=== PATIENT | male | born 1990 | race Caucasian/White ===

== ENCOUNTER → 2018-03-26 | Outpatient (REF) ==
--- NOTE | 2018-03-27 04:11 | REP ---
Clinical: Left knee pain Technique: AP, lateral, bilateral oblique and sunrise views left knee . Findings: The osseous structures and joint spaces are intact and normal. There is no evidence for acute fracture or dislocation. No joint effusion is appreciated. Surrounding soft tissues are unremarkable. No subcutaneous emphysema or radiodense foreign body. Impression: Normal age-appropriate examination. No acute fracture or dislocation. Electronically Signed by Miguel Angel Jesus MD 03/27/2018 04:03 A
--- NOTE | 2018-03-27 04:16 | REP ---
Clinical: Pain and disability. Technique: AP, lateral, coned-down views of the lumbosacral spine. Findings: Alignment and lordosis maintained. No acute fracture / compression injury or subluxation is appreciated. There appears to be lumbarization of the S1 vertebral body spina bifida occulta and mild associated hypertrophic facet changes. Impression: Presumed lumbarization of the S1 vertebral body with associated changes. Correlation with physical examination is recommended and if necessary MRI of the lumbosacral spine may be considered for further investigation. Electronically Signed by Miguel Angel Jesus MD 03/27/2018 04:08 A
== END ==
LOC: M SMT 11:40
PROVIDERS: ATTEND Internal Medicine
DX: Z00.00 Encounter for general adult medical examination without abnormal findings (principal)

== ENCOUNTER → 2018-08-28 | Outpatient (CLI) | payer OTHER, MEDICAID ==
[~2018-08-28] MED LIST: CYCL10TA PO; DICL75TA PO; DRIS50003 PO; FLOM0.4C39 PO; IBUP-1022 PO; METO1TAB7 PO; NORC1TAB7 PO; ROSU40TA3 PO; TRAM50TA2 PO
--- NOTE | 2018-08-28 15:06 | REP ---
CERVICAL SPINE SERIES: Nine views of the cervical spine are performed. There is no evidence of acute fracture or dislocation. Vertebral bodies are normal in height and are well aligned with no prevertebral soft tissue swelling. Disc spaces are well preserved. I do not see radiographic evidence of significant neural foraminal narrowing. There are small cervical ribs at the C7 level. The cervical spine is slightly curved toward the left. This could indicate spasm. Electronically Signed by Son Roldan MD 08/29/2018 12:31 P
== END ==
LOC: M RAD 13:07
PROVIDERS: ATTEND Physician Assistant
DX: M54.12 Radiculopathy, cervical region (principal)

== ENCOUNTER 2018-09-04 08:53 | Emergency (ER) | payer OTHER, MEDICAID ==
[~2018-09-04] VITALS: Ht 170.2 cm; Wt 90.9 kg
[2018-09-04] MEDS ORDERED: ROSU40TA3 PO (09:02)
[2018-09-04] MEDS ORDERED: METO1TAB7 PO (09:02)
[2018-09-04] MEDS ORDERED: DRIS50003 PO (09:02)
[2018-09-04] MEDS ORDERED: DICL75TA PO (09:02)
[2018-09-04] MEDS ORDERED: CYCL10TA PO (09:02)
[2018-09-04] MEDS ORDERED: TRAM50TA2 PO (09:02)
[2018-09-04] MEDS ORDERED: NS 1,000 ML IV ONE (09:30)
[2018-09-04] MEDS ORDERED: KETOROLAC 30 MG/ML VIAL (J1885) IV ONE (09:30)
[2018-09-04 09:52] LABS: BASO % 0.2 % (0.0-1.0); EOS % 0.2 % (0.0-3.0); HEMATOCRIT 46.3 % (42.0-52.0); HEMOGLOBIN 16.1 g/dl (13.5-17.5); LYMPH # 3.3 10^3/uL (1.5-6.5); LYMPH % 25.7 % (24.0-44.0); MEAN CORPUSCULAR HEMOGLOBIN 32.2 pg (27.0-33.0); MEAN CORPUSCULAR HGB CONC 34.8 g/dl (32.0-36.5); MEAN CORPUSCULAR VOLUME 92.6 fl (80.0-96.0); MONO # 0.6 10^3/uL (0.0-0.8); MONO % 4.8 % (0.0-5.0); NEUTROPHILS # 8.8 10^3/uL (1.8-7.7); NEUTROPHILS % 68.8 % (36.0-66.0); PLATELET COUNT, AUTOMATED 271 10^3/uL (150-450); WHITE BLOOD COUNT 12.8 10^3/uL (4.0-10.0)
[2018-09-04 10:12] LABS: APPEARANCE, URINE CLOUDY (CLEAR); BACTERIA, URINE AUTO NEGATIVE (NEGATIVE); BILIRUBIN, URINE AUTO NEGATIVE (NEGATIVE); BLOOD, URINE BLOOD 3+ (NEGATIVE); COLOR, URINE AMBER (YELLOW); GLUCOSE, URINE (UA) AUTO NEGATIVE (NEGATIVE); KETONE, URINE AUTO NEGATIVE (NEGATIVE); LEUKOCYTE ESTERASE, URINE AUTO NEGATIVE (NEGATIVE); MUCUS, URINE LARGE (NEGATIVE); NITRITE, URINE AUTO NEGATIVE (NEGATIVE); PROTEIN, URINE AUTO 2+ mg/dL (NEGATIVE); RBC, URINE AUTO TNTC /HPF (0-3); SPECIFIC GRAVITY URINE AUTO 1.026 (1.002-1.035); SQUAMOUS EPITHELIAL CELL UR AU 0 /HPF (0-6); UROBILINOGEN, URINE AUTO 0.2 mg/dL (0.0-2.0); WBC, URINE AUTO 2 /HPF (0-3)
[2018-09-04 10:14] LABS: ALBUMIN 4.1 GM/DL (3.2-5.2); ALT/SGPT 71 U/L (12-78); BILIRUBIN,DIRECT 0.4 MG/DL (0.0-0.2); BILIRUBIN,TOTAL 2.1 MG/DL (0.2-1.0); BLOOD UREA NITROGEN 16 MG/DL (7-18); CALCIUM LEVEL 9.1 MG/DL (8.5-10.1); CARBON DIOXIDE LEVEL 32 MEQ/L (21-32); CHLORIDE LEVEL 106 MEQ/L (98-107); CREATININE FOR GFR 0.83 MG/DL (0.70-1.30); GLOMERULAR FILTRATION RATE > 60.0 (>60); GLUCOSE, FASTING 93 MG/DL (70-100); POTASSIUM SERUM 4.4 MEQ/L (3.5-5.1); SODIUM LEVEL 144 MEQ/L (136-145); TOTAL PROTEIN 7.2 GM/DL (6.4-8.2)
--- NOTE | 2018-09-04 10:33 | REP ---
CT abdomen and pelvis without IV or oral contrast: History: Right-sided flank pain. Renal colic. Comparison study: December 16, 2009. CT findings: Preliminary digital tile helper radiograph is unremarkable. A normal bowel gas pattern is seen. The lung bases are clear on axial CT images. The liver and the spleen are normal in size and homogeneous in texture. No adrenal lesion is seen on either side. No abnormality is noted in the pancreas or in the gallbladder. There is an intrarenal calculus at mid pole level in the right kidney 4 mm in greatest diameter. There is mild right-sided hydronephrosis and mild right hydroureter. This is due to a distal ureteral calculus just above the ureterovesical junction. This calculus measures 3 mm in greatest diameter. No bladder calculus is seen. No intrarenal or ureteral calculus is noted on the left. Seminal vesicles and prostate are unremarkable. The appendix is not identified but there is no CT evidence to suggest inflammation in the region of the cecum. Small and large intestinal bowel loops are unremarkable. Impression: 3 mm obstructing right distal ureteral calculus just above the ureterovesical junction. There is an intrarenal calculus in the right kidney as well with mild right-sided hydronephrosis. Electronically Signed by Fredis Pereira MD 09/04/2018 12:32 P
[2018-09-04] MEDS ORDERED: NORCO, ANEXSIA 5/325MG TABLET (HYDROcodone/ACETAMINOPHEN) PO ONE (12:00)
[2018-09-04] MEDS ORDERED: IBUP-1022 PO (12:41)
[2018-09-04] MEDS ORDERED: NORC1TAB7 PO (12:41)
[2018-09-04] MEDS ORDERED: FLOM0.4C39 PO (12:41)
[2018-09-04 13:07] VITALS: BP 135/86
== END 2018-09-04 13:13 | disposition home or self-care (01) ==
LOC: M ED 08:53
DX: N21.1 Calculus in urethra (principal); N13.2 Hydronephrosis with renal and ureteral calculous obstruction; I10 Essential (primary) hypertension; Z79.899 Other long term (current) drug therapy; Z91.018 Allergy to other foods
CPT/HCPCS: 36415; 74176; 80048; 80076; 81001; 85025; 96361; 96374; 99284; J1885

== ENCOUNTER 2018-12-12 20:17 | Emergency (ER) | payer MEDICAID, OTHER ==
[~2018-12-12] VITALS: Ht 170.2 cm; Wt 90.9 kg
[~2018-12-12 20:17] MED LIST changes: -ROSU40TA3 PO; +ROSU40TA4 PO
[2018-12-12 23:30] VITALS: BP 164/96
[2018-12-12] MEDS ORDERED: NAPROXEN 250 MG TAB PO ONE (23:45)
[2018-12-12] MEDS ORDERED: METHOCARBAMOL 750 MG TAB PO ONE (23:45)
[2018-12-12] MEDS ORDERED: NAPR-837 PO (23:48)
[2018-12-12] MEDS ORDERED: ROBA750T4 PO (23:48)
--- NOTE | 2018-12-13 07:15 | ECGEPIP ---
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
== END 2018-12-13 00:30 | disposition home or self-care (01) ==
LOC: M ED 20:17
DX: S46.812A Strain of other muscles, fascia and tendons at shoulder and upper arm level, left arm, initial encounter (principal); X58.XXXA Exposure to other specified factors, initial encounter; Y92.89 Other specified places as the place of occurrence of the external cause; I10 Essential (primary) hypertension; E78.9 Disorder of lipoprotein metabolism, unspecified; Z79.899 Other long term (current) drug therapy; Z91.018 Allergy to other foods

== ENCOUNTER → 2018-12-23 | Outpatient (CLI) | payer OTHER ==
[~2018-12-23] MED LIST changes: +NAPR-837 PO; +ROBA750T4 PO
--- NOTE | 2018-12-24 03:27 | REP ---
Clinical: Arthralgia . Technique: Internal rotation, external rotation, and Y view left shoulder . Findings: No acute fracture or dislocation. The acromioclavicular and glenohumeral joints are intact. No periarticular calcifications or degenerative changes are appreciated. Sub acromial space is normal. Surrounding soft tissues are unremarkable. Impression: Normal age-appropriate left shoulder radiographs. Electronically Signed by Miguel Angel Jesus MD 12/24/2018 03:19 A
--- NOTE | 2018-12-24 03:37 | REP ---
Clinical: Cervical. Technique: AP, lateral, bilateral oblique, flexion/extension and open-mouth views of the cervical spine. Comparison: 08/28/2018. Findings: Alignment and lordosis maintained. No acute fracture / compression injury or subluxation. No significant degenerative changes are appreciated. Oblique views demonstrate patent neural foramen. Open mouth view demonstrates normal C1-C2 articulation and odontoid process and Impression: Normal, age-appropriate cervical spine radiographs. Electronically Signed by Miguel Angel Jesus MD 12/24/2018 03:28 A
== END ==
LOC: M SMT 13:01
PROVIDERS: ATTEND Physician Assistant Medical
DX: M54.2 Cervicalgia (principal); M25.512 Pain in left shoulder

== ENCOUNTER → 2019-02-13 | Outpatient (CLI) | payer OTHER ==
--- NOTE | 2019-02-13 20:03 | REP ---
MRI cervical spine: 02/13/2019. Indication: Cervical radiculopathy. Comparison: None. Technique: Multiplanar short and long TR sequences of the cervical spine were performed. Findings: Diagnostic quality is degraded by patient motion. There is straightening of the cervical lordosis. No worrisome marrow or cord signal is detected. The craniocervical junction is unremarkable. The vertebral flow voids are present and unremarkable with the exception of possible duplication on the left at C5. C2/C3 and C3/C4: Unremarkable. C4/C5: Diffuse disc bulge and left-sided uncovertebral proliferation are present with moderate left neural foraminal narrowing. C5/C6: Predominantly left-sided uncovertebral proliferation is present with moderate left neural foraminal narrowing. C6/C7: There is a left lateral disc protrusion and bilateral uncovertebral proliferation with severe left neural foraminal narrowing. There is no significant compression of the cord/spinal canal narrowing. C7/T1: Unremarkable. Impression: Degenerative sequelae as described most pronounced on the left at C6/C7. Please correlate with radicular level. Electronically Signed by Gamaliel De Leon DO 02/13/2019 07:53 P
== END ==
LOC: M RAD 16:49
PROVIDERS: ATTEND Physician Assistant Medical
DX: M50.221 Other cervical disc displacement at C4-C5 level (principal); M50.223 Other cervical disc displacement at C6-C7 level; M50.321 Other cervical disc degeneration at C4-C5 level; M50.322 Other cervical disc degeneration at C5-C6 level; M50.323 Other cervical disc degeneration at C6-C7 level

== ENCOUNTER 2019-03-19 08:10 | Emergency (ER) | payer OTHER ==
[~2019-03-19] VITALS: Ht 170.2 cm; Wt 94.6 kg
[2019-03-19] MEDS ORDERED: ALL10TAB29 PO (08:16)
[2019-03-19 09:40] LABS: BASO # 0.1 10^3/uL (0.0-0.2); BASO % 0.8 % (0.0-1.0); EOS # 0.1 10^3/uL (0.0-0.5); EOS % 0.9 % (0.0-3.0); HEMOGLOBIN 16.4 g/dl (13.5-17.5); LYMPH # 2.5 10^3/uL (1.5-5.0); MEAN CORPUSCULAR HEMOGLOBIN 31.3 pg (27.0-33.0); MEAN CORPUSCULAR HGB CONC 33.5 g/dl (32.0-36.5); MEAN CORPUSCULAR VOLUME 93.5 fl (80.0-96.0); MONO # 0.6 10^3/uL (0.0-0.8); MONO % 7.3 % (0.0-5.0); NEUTROPHILS # 4.4 10^3/uL (1.5-8.5); NEUTROPHILS % 57.7 % (36.0-66.0); PLATELET COUNT, AUTOMATED 269 10^3/uL (150-450); RED BLOOD COUNT 5.24 10^6/uL (4.30-6.10); WHITE BLOOD COUNT 7.6 10^3/uL (4.0-10.0)
[2019-03-19 09:42] LABS: APPEARANCE, URINE CLEAR (CLEAR); BACTERIA, URINE AUTO NEGATIVE (NEGATIVE); BILIRUBIN, URINE AUTO NEGATIVE (NEGATIVE); BLOOD, URINE BLOOD 3+ (NEGATIVE); COLOR, URINE AMBER (YELLOW); GLUCOSE, URINE (UA) AUTO NEGATIVE (NEGATIVE); KETONE, URINE AUTO NEGATIVE (NEGATIVE); LEUKOCYTE ESTERASE, URINE AUTO NEGATIVE (NEGATIVE); MUCUS, URINE MODERATE (NEGATIVE); NITRITE, URINE AUTO NEGATIVE (NEGATIVE); PROTEIN, URINE AUTO 1+ mg/dL (NEGATIVE); RBC, URINE AUTO 12 /HPF (0-3); SPECIFIC GRAVITY URINE AUTO 1.025 (1.002-1.035); SQUAMOUS EPITHELIAL CELL UR AU 0 /HPF (0-6); UROBILINOGEN, URINE AUTO 0.2 mg/dL (0.0-2.0); WBC, URINE AUTO 2 /HPF (0-3)
--- NOTE | 2019-03-19 09:45 | REP ---
Two-view chest: 03/19/2019. Indication: Chest pain. Comparison: None. Findings: There is no air space consolidation, pleural effusion or pneumothorax. The cardiac silhouette is at the upper limits of normal in size. Impression: No acute cardiopulmonary process. Electronically Signed by Gamaliel De Leon DO 03/19/2019 09:36 A
[2019-03-19 10:10] LABS: BLOOD UREA NITROGEN 12 MG/DL (7-18); CALCIUM LEVEL 9.2 MG/DL (8.5-10.1); CARBON DIOXIDE LEVEL 30 MEQ/L (21-32); CHLORIDE LEVEL 108 MEQ/L (98-107); CK-MB VALUE MASS < 1.0 NG/ML (<3.6); CPK CREATINE PHOSPHOKINASE 150 U/L (39-308); CREATININE FOR GFR 0.84 MG/DL (0.70-1.30); GLOMERULAR FILTRATION RATE > 60.0 (>60); GLUCOSE, FASTING 95 MG/DL (70-100); MAGNESIUM LEVEL 2.1 MG/DL (1.8-2.4); MB/CK RELATIVE INDEX 0.67 (< OR =4); NT-PRO BNP 10 PG/ML (<125); POTASSIUM SERUM 4.2 MEQ/L (3.5-5.1); SODIUM LEVEL 143 MEQ/L (136-145); TROPONIN I < 0.02 NG/ML (< 0.10)
[2019-03-19 12:06] VITALS: BP 138/88
--- NOTE | 2019-03-20 17:45 | ECGEPIP ---
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
== END 2019-03-19 12:07 | disposition home or self-care (01) ==
LOC: M ED 08:10
DX: R31.9 Hematuria, unspecified (principal); R06.02 Shortness of breath; I10 Essential (primary) hypertension; E78.5 Hyperlipidemia, unspecified; R94.31 Abnormal electrocardiogram [ECG] [EKG]; Z79.899 Other long term (current) drug therapy; Z91.018 Allergy to other foods

== ENCOUNTER → 2019-03-21 | Outpatient (REF) | payer OTHER ==
[~2019-03-21] MED LIST changes: +ALL10TAB29 PO
[2019-03-21 13:33] LABS: AMORPHOUS SEDIMENT SMALL (NEGATIVE); APPEARANCE, URINE TURBID (CLEAR); BACTERIA, URINE AUTO NEGATIVE (NEGATIVE); BILIRUBIN, URINE AUTO NEGATIVE (NEGATIVE); BLOOD, URINE BLOOD 3+ (NEGATIVE); COLOR, URINE YELLOW (YELLOW); GLUCOSE, URINE (UA) AUTO NEGATIVE (NEGATIVE); KETONE, URINE AUTO NEGATIVE (NEGATIVE); LEUKOCYTE ESTERASE, URINE AUTO NEGATIVE (NEGATIVE); MUCUS, URINE LARGE (NEGATIVE); NITRITE, URINE AUTO NEGATIVE (NEGATIVE); PROTEIN, URINE AUTO 1+ mg/dL (NEGATIVE); RBC, URINE AUTO 3 /HPF (0-3); SPECIFIC GRAVITY URINE AUTO 1.025 (1.002-1.035); SQUAMOUS EPITHELIAL CELL UR AU 0 /HPF (0-6); UROBILINOGEN, URINE AUTO 0.2 mg/dL (0.0-2.0); WBC, URINE AUTO 0 /HPF (0-3)
== END ==
LOC: M SMT 13:10
PROVIDERS: ATTEND Nurse Practitioner Family
DX: R31.29 Other microscopic hematuria (principal)

== ENCOUNTER → 2019-03-31 | Outpatient (CLI) | payer OTHER ==
[~2019-03-31] MED LIST changes: +ISOVUE-370 76% 100ML VIAL (Q9967) As Ordered ONE
--- NOTE | 2019-03-31 09:04 | REP ---
Clinical: Microscopic hematuria. Technique: Axial precontrast, contrast enhanced, and delayed images of the abdomen and pelvis using 100 ml Isovue 370 intravenous contrast material along with coronal and sagittal re-formations. 3-D volume rendered CT urogram obtained. Findings: There is a 2 x 3 mm nonobstructing calcification in the right kidney along with 11 mm right upper pole and mid pole simple cysts. Left kidney appears normal. The collecting system is unremarkable and without evidence for hydronephrosis. No perinephric stranding. No further obvious urinary tract pathology appreciated. Liver, spleen, pancreas, gallbladder, and bilateral adrenal glands are normal. The enteric system is without obstruction or acute inflammatory process. Pelvis demonstrates normal bladder and age appropriate prostate/seminal vesicles. No ascites. No adenopathy. No free air. Abdominal aorta and vasculature appear normal. Surrounding musculoskeletal structures are intact. Lung bases are clear. Impression: 1. Two benign appearing 11 mm right renal cysts and 3 mm nonobstructing right renal calculus. Electronically Signed by Miguel Angel Jesus MD 03/31/2019 08:55 A
== END ==
LOC: M RAD 07:39
PROVIDERS: ATTEND Nurse Practitioner Family
DX: N28.1 Cyst of kidney, acquired (principal); R31.29 Other microscopic hematuria
CPT/HCPCS: 74178; Q9967

== ENCOUNTER → 2019-04-23 | Outpatient (CLI) | payer OTHER ==
[~2019-04-23] MED LIST changes: -ISOVUE-370 76% 100ML VIAL (Q9967) As Ordered ONE
--- NOTE | 2019-05-06 02:48 | ECWPNPC ---
PATIENT NAME: CHRISTIAN TORRES : 1990 GENDER: MALE VISIT DATE: 04/23/2019 DISCHARGE DATE: 04/23/19 1723 VISIT LOCKED DATE TIME: PHYSICIAN: ISAIAH CAST MD RESOURCE: ISAIAH CAST MD REASON FOR APPOINTMENT 1. CERVICAL HISTORY OF PRESENT ILLNESS NEW PATIENT CONSULT: WHEN DID YOUR PAIN FIRST START? . BRIEFLY DESCRIBE HOW YOUR PAIN STARTED? . HOW DOES YOUR PAIN CHANGE WITH TIME? . DOES YOUR PAIN AWAKEN YOU FROM SLEEP? . HOW MANY HOURS OF SLEEP DO YOU NORMALLY GET? . ANY DIAGNOSTIC TESTING? . FACILITY WHERE TESTS WERE DONE? ____. PAIN TREATMENT TREATMENT YES CANCER HAVE YOU EVER HAD ANY TYPE OF CANCER?NO NO. 28-YEAR-OLD MALE PATIENT WITH A HISTORY OF CHRONIC NECK AND LEFT ARM PAIN. THE PATIENT DESCRIBES THE PAIN ACHING, SHARP, STABBING, DAILY AND CONTINUOUS WITH A PAIN SCORE OF 4-9/10 DEPENDING ON PHYSICAL ACTIVITY. THE PATIENT STATES HIS PAIN INCREASES WITH ACTIVITIES AND IS INTERFERING WITH HIS ABILITY TO DO ACTIVITIES SUCH CLEANING HIS HOME, GROCERY SHOPPING AND HOLDING OBJECTS. THE PATIENT STATES HE HAS BEEN SUFFERING WITH NECK AND ARM PAIN FOR 6 MONTHS AND HAS BEEN SUFFERING WITH BACK AND LEG PAIN FOR TEN YEARS THAT HAS INCREASED WITHIN THE PAST FEW YEARS. PATIENT DENIES UNEXPLAINABLE WEIGHT LOSS, FEVER, CHILLS, NEW CHANGES ON HIS URINARY OR BOWEL CONTROL. PAIN SCREENING: PATIENT HAS A COMPLAINT OF ACUTE OR CHRONIC PAIN :YES FALL RISK SCREENING: SCREENING : NO FALLS IN THE PAST YEAR. ROSS INVENTORY: QUESTIONNAIRE ASSESSEDTBD SCORE VALUE CALCULATED TBD CURRENT MEDICATIONS TAKING ROSUVASTATIN CALCIUM 40 MG TABLET 1 TABLET ORALLY ONCE A DAY TAKING MULTI FOR HIM - TABLET DIRECTED ORALLY TAKING CETIRIZINE HCL 10 MG TABLET 1 TABLET ORALLY BEFORE BEDTIME TAKING TRAMADOL HCL 50 MG TABLET 1 TABLET NEEDED, WITH 1 ACETAMINOPHEN TABLET ORALLY EVERY 6 HOURS NEEDED DISCONTINUED NAPROXEN 500 MG TABLET 1 TABLET WITH FOOD OR MILK NEEDED ORALLY EVERY 12 HRS DISCONTINUED DICLOFENAC SODIUM 1 % GEL 4 DROPS EACH SIDE OF EACH KNEE TRANSDERMAL EVERY 4 HOURS NEEDED DISCONTINUED GABAPENTIN 100 MG CAPSULE 2 CAPSULE ORALLY BID DISCONTINUED METHOCARBAMOL 750 MG TABLET 1 TABLET ORALLY BID DISCONTINUED ERGOCALCIFEROL 67993 UNIT CAPSULE 1 CAPSULE ORALLY DISCONTINUED PAMELOR 25 MG CAPSULE 1 CAPSULE ORALLY THREE TIMES DAILY NEEDED DISCONTINUED BACTRIM DS 800-160 MG TABLET 1 TABLET 1 HOUR PRIOR TO YOUR CYSTOSCOPY ORALLY ONCE DISCONTINUED GABAPENTIN 300 MG CAPSULE 1 CAPSULE ORALLY ONCE A DAY DISCONTINUED PREDNISONE 5 MG TABLET 1 TABLET ORALLY ONCE A DAY UNKNOWN METOPROLOL SUCCINATE 50 MG TABLET EXTENDED RELEASE DIRECTED ORALLY ONCE A DAY MEDICATION LIST REVIEWED AND RECONCILED WITH THE PATIENT PAST MEDICAL HISTORY HTN HYPERLIPIDEMIA PTSD/DEPRESSION/ANXIETY GILBERT'S SYNDROME 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 SOCIAL HISTORY GENERAL: TOBACCO USE ARE YOU A:NONSMOKER OTHERS AT HOME: IN-LAW(S), OTHER NON-RELATIVE. EDUCATION LEVEL OF EDUCATION:[employer] DIET: REGULAR. LANGUAGE LANGUAGES SPOKEN:BULGARIAN RECREATIONAL DRUG USE DRUG USE?NO EXERCISE: NO REGULAR EXERCISE. LEARNING BARRIERS / SPECIAL NEEDS BARRIERS TO LEARNING?NO PAIN CLINIC PFS, CLERGY, PUBLIC HEALTH REFERRALS PFS REFERRAL NEEDED?NO CLERGY REFERRAL NEEDED?NO PUBLIC HEALTH REFERRAL NEEDED?NO WAS THE PROVIDER NOTIFIED OF ANY PERTINENT INFO?NO HAS THE PATIENT BEEN EDUCATED REGARDING HIS/HER PLAN OF CARE?YES HAS THE PATIENT BEEN EDUCATED REGARDING PAIN, THE RISK FOR PAIN, THE IMPORTANCE OF EFFECTIVE PAIN MANAGEMENT, AND THE PAIN ASSESSMENT PROCESS?YES LATEX QUESTIONNAIRE LATEX ALLERGY : HAVE YOU EVER DEVELOPED ANY TYPE OF REACTION AFTER HANDLING LATEX PRODUCTS SUCH RUBBER GLOVES, CONDOMS, DIAPHRAGMS, BALLOONS, SOCKS, OR UNDERWEAR?NO LATEX ALLERGY : HAVE YOU EVER DEVELOPED ANY TYPE OF REACTION DURING OR AFTER DENTAL APPOINTMENT, VAGINAL/RECTAL EXAMINATION, SURGICAL PROCEDURE, OR ANY OTHER EXPOSURE?NO LATEX RISK : HAVE YOU EVER HAD ANY DIFFICULTY BREATHING OR HIVES AFTER EATING OR HANDLING ANY FRUITS, OR VEGETABLES; SUCH KIWI, BANANAS, STONE FRUITS, OR CHESTNUTSNO LATEX RISK : DO YOU HAVE A PREVIOUS PERSONAL HISTORY OF MORE THAN NINE SURGERIES, SPINA BIFIDA, OR REPEATED CATHERIZATIONS? NO LATEX RISK : ARE YOU FREQUENTLY EXPOSED TO LATEX PRODUCTS IN YOUR OCCUPATION?NO DATE ASKED : 04/23/2019 CAFFEINE CAFFEINE USE?YES 1 SODA PER, ENERGY DRINKS 1 PER WEEK, COFFEE OCCASIONAL ADVANCE DIRECTIVE ADVANCE DIRECTIVE DISCUSSED WITH PATIENT:YES 04/23/19 PT. DECLINES INFORMATION AT THIS TIME VD SIKHISM [id number] NONE MARITAL STATUS: .. ALCOHOL SCREENING DID YOU HAVE A DRINK CONTAINING ALCOHOL IN THE PAST YEAR?YES HOW OFTEN DID YOU HAVE A DRINK CONTAINING ALCOHOL IN THE PAST YEAR?MONTHLY OR LESS (1 POINT) HOW MANY DRINKS DID YOU HAVE ON A TYPICAL DAY WHEN YOU WERE DRINKING IN THE PAST YEAR?1 OR 2 (0 POINTS) HOW OFTEN DID YOU HAVE SIX OR MORE DRINKS ON ONE OCCASION IN THE PAST YEAR?LESS THAN MONTHLY (1 POINT) POINTS2 INTERPRETATIONNEGATIVE OCCUPATION: UNEMPLOYED. HOSPITALIZATION/MAJOR DIAGNOSTIC PROCEDURE NO HOSPITALIZATION HISTORY. REVIEW OF SYSTEMS REVIEWED BY: PROVIDER: ISAIAH CAST MD . CONSTITUTIONAL: ANY CHANGE IN YOUR MEDICAL CONDITION? NO . CHILLS NO . FEVER NO . INFECTION: DO YOU HAVE NEW INFECTIONS? NO . DO YOU HAVE HISTORY OF MRSA? NO . MUSCULOSKELETAL: ANY NEW PATTERNS OF PAIN OR NUMBNESS? YES . SYTEMIC LUPUS NO . GASTROENTEROLOGY: ANY NEW CHANGE IN BOWEL CONTROL? NO . BARRETTS ESOPHAGUS NO . CIRRHOSIS NO . HEPATITIS NO . LIVER FAILURE NO . ACID REFLUX YES . UNEXPLAINED WEIGHT LOSS NO . GENITOURINARY: ANY NEW CHANGE IN BLADDER CONTROL? NO . IS THERE A CHANCE YOU COULD BE ? NO . HEMATOLOGY/LYMPH: DO YOU TAKE ANY BLOOD THINNERS? (FOR EXAMPLE- COUMADIN, PLAVIX, AGGRENOX, PLATEL, PRADAXA, OR XARELTO) NO . WHEN WAS YOUR LAST DOSE? DATE: TIME: . LOW PLATELET COUNT NO . SICKLE CELL DISEASE NO . VON WILLIEBRANDS NO . FACTOR V LEIDEN NO . THALLASEMIA NO . ANEMIA NO . EASY BRUISING NO . NEUROLOGY: HAVE YOU FALLEN IN THE PAST 12 MONTHS? NO . ANY NEW EXTREMITY NUMBNESS OR WEAKNESS? YES, ARMS AND LEGS BILATERAL . HEAD INJURY NO . DEMENTIA NO . CEREBRAL PALSY NO . MULTIPLE SCLEROSIS NO . DIZZINESS NO . HEADACHE ASSOCIATED WITH PHOTOPHOBIA . STROKES NO . VERTIGO NO . CARDIOLOGY: DO YOU HAVE A PACEMAKER OR DEFIBRILLATOR? NO . ANGINA NO . HEART ATTACK NO . HEART SURGERY NO . CONGESTIVE HEART FAILURE/FLUID OVERLOAD NO . CHEST PAIN N, DULL . HIGH BLOOD PRESSURE ON MEDICATION(S) . IRREGULAR HEART BEAT NO . RESPIRATORY: HAVE YOU BEEN SICK IN THE PAST WEEK? NO . FEVER NO . FLU LIKE SYMPTOMS? NO . CPAP NO . BYPAP NO . ASTHMA NO . EMPHYSEMA NO . CHRONIC LUNG DISEASES NO . SHORTNESS OF BREATH ON EXERTION YES . DO YOU USE ANY TYPE OF TOBACCO (SMOKE, SMOKELESS, CHEW)? NO . COUGH NO . SNORING YES . INTEGUMENTARY: DO YOU HAVE ANY RASHES OR OPEN SORES? NO . ALLERGIC/IMMUNO: ARE YOU ALLERGIC TO IV DYE? NO . ANY NEW ALLERGIES? NO . PSYCHIATRIC: DO YOU HAVE THOUGHTS OF HURTING YOURSELF OR SOMEONE ELSE? NO . ARE YOU ABUSED, NEGLECTED, OR IN AN UNSAFE ENVIRONMENT? NO . ENDOCRINOLOGY: ARE YOU DIABETIC? NO . THYROID DISORDER NO . OTHER: DO YOU NEED ANY PRESCRIPTIONS? NO . IF YES, PLEASE LIST: ____ . ANY NEW PROBLEMS WITH YOUR MEDICATIONS? NO . WHEN DID YOU LAST EAT? ____ . WHEN DID YOU LAST DRINK? ____ . WHAT DID YOU LAST DRINK? ____ . NAME OF PERSON DRIVING YOU HOME? ____ . DO YOU HAVE ANY OTHER QUESTIONS OR CONCERNS YES,ROXANA HOPING TO AVOID PRESCRIPTIONS OF NARCOTIC IF POSSIBLE . VITAL SIGNS WT 206.2 LBS, HT 67 IN, BMI 32.29 INDEX, BP 130/72 MM HG, HR 83 /MIN, RR 18 /MIN, TEMP 97.6 F, OXYGEN SAT % 100%, NA INITIALS SC 15:20, REVIEWED BY: VD. EXAMINATION GENERAL EXAMINATION: PATIENT IS ALERT O X 3 AND COOPERATIVE. LUNGS CLEAR, TO AUSCULTATION. HEART: NO MURMURS OR GALLOPS; FACIAL CRANIAL NERVES ARE GROSSLY NORMAL. ANTALGIC WALK. 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 THE LEFT ARM IS WEAKER AT EXTENSION AND FLEXION. INCREASING PAIN OVER THE LEFT NECK AREA WITH EXTENSION AND LATERAL ROTATION OF THE NECK. MRI OF THE CERVICAL SPINE DONE ON 02/13/2019 SHOWS LATERAL DISC PROTRUSION AND UNCOVERTEBRAL PROLIFERATION WITH SEVERE LEFT NEURAL FORAMINAL NARROWING AT C6-C7. ASSESSMENTS CERVICAL DISC DISORDER WITH RADICULOPATHY, UNSPECIFIED CERVICAL REGION - M50.10 (PRIMARY) TREATMENT CERVICAL DISC DISORDER WITH RADICULOPATHY, UNSPECIFIED CERVICAL REGION CLINICAL NOTES: WE DISCUSSED SEVERAL ISSUES WISH MR. TORRES'S PAIN MANAGEMENT CASE. DUE TO THE CERVICAL RADICULOPATHY, I WOULD LIKE TO MOVE FORWARD WITH A CERVICAL EPIDURAL STEROID INJECTION AT THIS TIME. WE DISCUSSED THE BENEFITS, RISKS AND ALTERNATIVES OF THE INJECTION, AND THE PATIENT WOULD LIKE TO PROCEED. I AM LOOKING FOR LONG-LASTING PAIN RELIEF WITH THIS INJECTION. INSTRUCTIONS WERE GIVEN, QUESTIONS WERE ANSWERED, PATENT REPORTS UNDERSTANDING AND AGREES WITH THE PLAN. I, TK SEARS, DOCUMENTED THE ABOVE INFORMATION ACTING A SCRIBE FOR DR. CAST. I HAVE REVIEWED THE ABOVE DOCUMENT, WRITTEN BY SAGAR LEON, AND I VERIFY THAT IT IS ACCURATE. DEAR DERICK ALMARAZ: THANK YOU FOR YOUR KIND REFERRAL OF CHRISTIAN TORRES. IF YOU WANT TO DISCUSS HIS CASE WITH ME, PLEASE CALL ME AT THE PAIN CENTER AT [phone]. SINCERELY, ISAIAH CAST MD PAIN MEDICINE. PREVENTIVE MEDICINE PAIN CLINIC TEACHING: PROCEDURE TEACHING PRINTED INFORMATION ON CERVICAL EPIDURAL GIVEN TO AND REVIEWED WITH PT. ALONG WITH PRINTED PRE-PROCEDURE INSTRUCTIONS AND PT VERBALIZED UNDERSTANDING. AD. PROCEDURE CODES 57060 OFFICE/OUTPATIENT VISIT NEW G8427 CURRENT MEDS W/DOSAGES DOCUMENTED G8730 PAIN ASSESS POS TOOL F/U PLAN DOC FA211 ESTABILISHED PATIENT [facility] FACILITY CHARGE DISPOSITION & COMMUNICATION FOLLOW UP 3 WEEKS (REASON: HALIE) ELECTRONICALLY SIGNED BY ISAIAH CAST MD, MD ON 05/05/2019 AT 01:20 PM EST DISCLAIMER : THIS IS A VISIT SUMMARY EXTRACTED FROM THE [employer] CHART. IT IS NOT A COPY OF THE [employer] PROGRESS NOTE. OSCAR
== END ==
LOC: M PAIN 15:00
PROVIDERS: ATTEND Anesthesiology
DX: M50.10 Cervical disc disorder with radiculopathy, unspecified cervical region (principal)

== ENCOUNTER → 2019-05-14 | Outpatient (CLI) | payer OTHER ==
[~2019-05-14] MED LIST changes: +ISOVUE-M 300 61% 15ML VIAL (Q9967) As Ordered ONE; +LIDOCAINE 1% SDV INJ 30 ML VIAL As Ordered ONE; +NORCO, ANEXSIA 5/325MG TABLET (HYDROcodone/ACETAMINOPHEN) As Ordered ONE; +methylPREDNISolone SUSP 40 MG/ML (DEPO-medrol) VIAL (J1030) As Ordered ONE
--- NOTE | 2019-05-14 13:51 | REP ---
Limited cervical spine series: Three views. History: Cervical epidural steroid injection for pain. 17 seconds of fluoroscopy time is reported. Findings: A sequence of three last image hold fluoroscopically obtained spot radiographs of the cervicothoracic junction document needle position and contrast injection associated with injection procedure. Electronically Signed by Fredis Pereira MD 05/14/2019 01:43 P
--- NOTE | 2019-05-23 02:56 | ECWPNPC ---
PATIENT NAME: CHRISTIAN TORRES : 1990 GENDER: MALE VISIT DATE: 05/14/2019 DISCHARGE DATE: 05/14/19 1131 VISIT LOCKED DATE TIME: PHYSICIAN: ISAIAH CAST MD RESOURCE: ISAIAH CAST MD REASON FOR APPOINTMENT 1. HALIE HISTORY OF PRESENT ILLNESS HISTORY OF PRESENT ILLNESS: PAIN THE PATIENT DESCRIBES THE PAIN... FALL RISK SCREENING: SCREENING :NO FALLS REPORTED IN THE LAST YEAR CURRENT MEDICATIONS TAKING ROSUVASTATIN CALCIUM 40 MG TABLET 1 TABLET ORALLY ONCE A DAY, NOTES: 05-14-19699 TAKING MULTI FOR HIM - TABLET DIRECTED ORALLY , NOTES: 05-13-19799 TAKING METOPROLOL SUCCINATE 50 MG TABLET EXTENDED RELEASE DIRECTED ORALLY ONCE A DAY, NOTES: 05-14-19699 TAKING CETIRIZINE HCL 10 MG TABLET 1 TABLET ORALLY BEFORE BEDTIME, NOTES: 05-14-19699 TAKING NYSTATIN [id number] UNIT/GM OINTMENT 1 APPLICATION TO TIP OF PENIS EXTERNALLY TWICE A DAY; 15GRAMS, NOTES: 05-13-191999 NOT-TAKING FLEXERIL 10 MG TABLET 1 TABLET NEEDED ORALLY DAILY NOT-TAKING GABAPENTIN 300 MG CAPSULE 1 CAPSULE ORALLY ONCE A DAY NOT-TAKING TRAMADOL HCL 50 MG TABLET 1 TABLET NEEDED, WITH 1 ACETAMINOPHEN TABLET ORALLY EVERY 6 HOURS NEEDED MEDICATION LIST REVIEWED AND RECONCILED WITH THE PATIENT PAST MEDICAL HISTORY HTN HYPERLIPIDEMIA PTSD/DEPRESSION/ANXIETY GILBERT'S SYNDROME 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 SOCIAL HISTORY GENERAL: TOBACCO USE ARE YOU A:NONSMOKER OTHERS AT HOME: IN-LAW(S), OTHER NON-RELATIVE. EDUCATION LEVEL OF EDUCATION:[employer] DIET: REGULAR. LANGUAGE LANGUAGES SPOKEN:CYMRO RECREATIONAL DRUG USE DRUG USE?NO EXERCISE: NO REGULAR EXERCISE. LEARNING BARRIERS / SPECIAL NEEDS BARRIERS TO LEARNING?NO PAIN CLINIC PFS, CLERGY, PUBLIC HEALTH REFERRALS PFS REFERRAL NEEDED?NO CLERGY REFERRAL NEEDED?NO PUBLIC HEALTH REFERRAL NEEDED?NO WAS THE PROVIDER NOTIFIED OF ANY PERTINENT INFO?NO HAS THE PATIENT BEEN EDUCATED REGARDING HIS/HER PLAN OF CARE?YES HAS THE PATIENT BEEN EDUCATED REGARDING PAIN, THE RISK FOR PAIN, THE IMPORTANCE OF EFFECTIVE PAIN MANAGEMENT, AND THE PAIN ASSESSMENT PROCESS?YES LATEX QUESTIONNAIRE LATEX ALLERGY : HAVE YOU EVER DEVELOPED ANY TYPE OF REACTION AFTER HANDLING LATEX PRODUCTS SUCH RUBBER GLOVES, CONDOMS, DIAPHRAGMS, BALLOONS, SOCKS, OR UNDERWEAR?NO LATEX ALLERGY : HAVE YOU EVER DEVELOPED ANY TYPE OF REACTION DURING OR AFTER DENTAL APPOINTMENT, VAGINAL/RECTAL EXAMINATION, SURGICAL PROCEDURE, OR ANY OTHER EXPOSURE?NO DATE ASKED : 04/23/2019 LATEX RISK : HAVE YOU EVER HAD ANY DIFFICULTY BREATHING OR HIVES AFTER EATING OR HANDLING ANY FRUITS, OR VEGETABLES; SUCH KIWI, BANANAS, STONE FRUITS, OR CHESTNUTSNO LATEX RISK : DO YOU HAVE A PREVIOUS PERSONAL HISTORY OF MORE THAN NINE SURGERIES, SPINA BIFIDA, OR REPEATED CATHERIZATIONS? NO LATEX RISK : ARE YOU FREQUENTLY EXPOSED TO LATEX PRODUCTS IN YOUR OCCUPATION?NO CAFFEINE CAFFEINE USE?YES 1 SODA PER, ENERGY DRINKS 1 PER WEEK, COFFEE OCCASIONAL ADVANCE DIRECTIVE ADVANCE DIRECTIVE DISCUSSED WITH PATIENT:YES 04/23/19 PT. DECLINES INFORMATION AT THIS TIME VD YAZIDISM [id number] NONE MARITAL STATUS: .. ALCOHOL SCREENING DID YOU HAVE A DRINK CONTAINING ALCOHOL IN THE PAST YEAR?YES HOW OFTEN DID YOU HAVE SIX OR MORE DRINKS ON ONE OCCASION IN THE PAST YEAR?LESS THAN MONTHLY (1 POINT) HOW MANY DRINKS DID YOU HAVE ON A TYPICAL DAY WHEN YOU WERE DRINKING IN THE PAST YEAR?1 OR 2 (0 POINTS) HOW OFTEN DID YOU HAVE A DRINK CONTAINING ALCOHOL IN THE PAST YEAR?MONTHLY OR LESS (1 POINT) POINTS2 INTERPRETATIONNEGATIVE OCCUPATION: UNEMPLOYED. HOSPITALIZATION/MAJOR DIAGNOSTIC PROCEDURE DENIES PAST HOSPITALIZATION REVIEW OF SYSTEMS REVIEWED BY: PROVIDER: . CONSTITUTIONAL: ANY CHANGE IN YOUR MEDICAL CONDITION? NO . CHILLS NO . FEVER NO . INFECTION: DO YOU HAVE NEW INFECTIONS? NO . DO YOU HAVE HISTORY OF MRSA? NO . MUSCULOSKELETAL: ANY NEW PATTERNS OF PAIN OR NUMBNESS? NO . GASTROENTEROLOGY: ANY NEW CHANGE IN BOWEL CONTROL? NO . GENITOURINARY: ANY NEW CHANGE IN BLADDER CONTROL? NO . IS THERE A CHANCE YOU COULD BE ? NO . HEMATOLOGY/LYMPH: DO YOU TAKE ANY BLOOD THINNERS? (FOR EXAMPLE- COUMADIN, PLAVIX, AGGRENOX, PLATEL, PRADAXA, OR XARELTO) NO . WHEN WAS YOUR LAST DOSE? DATE: TIME: . NEUROLOGY: HAVE YOU FALLEN IN THE PAST 12 MONTHS? NO . ANY NEW EXTREMITY NUMBNESS OR WEAKNESS? NO . CARDIOLOGY: DO YOU HAVE A PACEMAKER OR DEFIBRILLATOR? NO . RESPIRATORY: HAVE YOU BEEN SICK IN THE PAST WEEK? NO . FEVER NO . FLU LIKE SYMPTOMS? NO . COUGH NO . INTEGUMENTARY: DO YOU HAVE ANY RASHES OR OPEN SORES? NO . ALLERGIC/IMMUNO: ARE YOU ALLERGIC TO IV DYE? NO . ANY NEW ALLERGIES? NO . PSYCHIATRIC: DO YOU HAVE THOUGHTS OF HURTING YOURSELF OR SOMEONE ELSE? NO . ARE YOU ABUSED, NEGLECTED, OR IN AN UNSAFE ENVIRONMENT? NO . ENDOCRINOLOGY: ARE YOU DIABETIC? NO . OTHER: DO YOU NEED ANY PRESCRIPTIONS? NO . IF YES, PLEASE LIST: ____ . ANY NEW PROBLEMS WITH YOUR MEDICATIONS? NO . WHEN DID YOU LAST EAT? 05-13-19 1800 . WHEN DID YOU LAST DRINK? 05-14-19 0710 . WHAT DID YOU LAST DRINK? WATER . NAME OF PERSON DRIVING YOU HOME? TAXI . DO YOU HAVE ANY OTHER QUESTIONS OR CONCERNS NO . VITAL SIGNS WT 207 LBS, HT 67 IN, BMI 32.42 INDEX, BP 133/91 MM HG, HR 75 /MIN, RR 18 /MIN, TEMP 97.5 F, OXYGEN SAT % 100%, NA INITIALS AW 0931, REVIEWED BY: LS. ASSESSMENTS CERVICAL DISC DISORDER WITH RADICULOPATHY, UNSPECIFIED CERVICAL REGION - M50.10 (PRIMARY) TREATMENT CERVICAL DISC DISORDER WITH RADICULOPATHY, UNSPECIFIED CERVICAL REGION [facility] FLUORO GUIDE SPINE INJECTION (PAIN)[id number] PROCEDURES PN CERVICAL EPIDURAL PRE PROCEDURE DIAGNOSIS CERVICAL DISC DISORDER WITH RADICULOPATHY POST PROCEDURE DIAGNOSIS CERVICAL DISC DISORDER WITH RADICULOPATHY PROCEDURE CERVICAL EPIDURAL STEROID INJECTION UNDER FLUOROSCOPIC GUIDANCE SURGEON DR. ISAIAH CAST WILLOW MACHINE TENDER NONE ANESTHESIA LOCAL PRE PROCEDURE NOTE THE PATIENT HAS A HISTORY OF CHRONIC CERVICAL PAIN. I EVALUATED THE PATIENT AND REVIEWED THE CHART. I WENT OVER THE RISKS, ALTERNATIVES, AND BENEFITS ASSOCIATED WITH THIS PROCEDURE. THE PATIENT WOULD LIKE TO PROCEED AND GIVES CONSENT TO PERFORM THE PROCEDURE. THE PATIENT DENIES UNEXPLAINABLE WEIGHT LOSS, FEVER, CHILLS, OR NEW CHANGES IN URINARY OR BOWEL CONTROL DESCRIPTION OF PROCEDURE THE PATIENT WAS BROUGHT TO THE PROCEDURE ROOM AND PLACED IN THE PRONE POSITION. THE CERVICOTHORACIC AREA WAS CLEANED WITH BETADINE SOLUTION AND DRAPED ASEPTICALLY. THE PROCEDURE WAS DONE UNDER STERILE CONDITIONS. I CHECKED LATERALITY AND THE LEVEL WHERE THE PROCEDURE WAS GOING TO BE PERFORMED WITH THE PATIENT AND THE SUPPORTING STAFF AT THE MOMENT OF THE TIME OUT IN THE PROCEDURE ROOM. UNDER FLUOROSCOPIC GUIDANCE, THE TARGET WAS SELECTED AT THE INTERLAMINAR LEVEL OF C7-T1. LIDOCAINE WAS USED TO NUMB THE SKIN AND THE SUBCUTANEOUS TISSUE BELOW IT. EPIDURAL TUOHY NEEDLE 17-GAUGE WAS ADVANCED UNDER FLUOROSCOPIC GUIDANCE AND FOLLOWING PATIENT FEEDBACK UNTIL THE EPIDURAL SPACE WAS REACHED 6 CM DEEP INTO THE SKIN BY THE LOSS OF RESISTANCE TECHNIQUE. ISOVUE M DYE 30%, 0.25 ML, WAS INJECTED SHOWING ADEQUATE SPREAD OF THE DYE. THEN, A SOLUTION OF 3 ML OF NORMAL SALINE WITH DEPO-MEDROL 60 MG WAS INJECTED SLOWLY FOLLOWING PATIENT FEEDBACK. THERE WAS NO EVIDENCE OF BLOOD, PARESTHESIA OR CEREBROSPINAL FLUID DURING THE PROCEDURE. THE PATIENT WAS SENT TO THE RECOVERY ROOM. THE PATIENT WAS MOVING THE EXTREMITIES AND DOING WELL. THERE WAS NO COMPLICATION DURING THE PROCEDURE. FLUOROSCOPY TIME WAS 17 SECONDS POST PROCEDURE NOTE THE PATIENT WILL BE SEEN IN A FOLLOW UP IN THE NEXT FEW WEEKS. I AM LOOKING FOR LONG LASTING PAIN RELIEF WITH THIS INJECTION. INSTRUCTIONS WERE GIVEN, QUESTIONS WERE ANSWERED, AND THE PATIENT EXPRESSED UNDERSTANDING AND AGREES WITH THE PLAN. I, BIJU RAMÍREZ, DOCUMENTED THE ABOVE INFORMATION ACTING A SCRIBE FOR DR. CAST. I HAVE REVIEWED THE ABOVE DOCUMENT, WRITTEN BY BIJU RAMÍREZ SCRIBGeorge AND I VERIFY THAT IT IS ACCURATE. PROCEDURE CODES 80335 CERVICAL/THORACIC W/ IMAGING 6045F RADXPS IN END [id number] PXD DISPOSITION & COMMUNICATION FOLLOW UP 3 WEEKS ELECTRONICALLY SIGNED BY ISAIAH CAST MD, MD ON 05/22/2019 AT 01:45 PM EST DISCLAIMER : THIS IS A VISIT SUMMARY EXTRACTED FROM THE [employer] CHART. IT IS NOT A COPY OF THE [employer] PROGRESS NOTE. MTDD
== END ==
LOC: M PAIN 09:15
PROVIDERS: ATTEND Anesthesiology
DX: M50.10 Cervical disc disorder with radiculopathy, unspecified cervical region (principal); I10 Essential (primary) hypertension; E78.5 Hyperlipidemia, unspecified; Z86.59 Personal history of other mental and behavioral disorders; Z91.018 Allergy to other foods; Z79.899 Other long term (current) drug therapy
CPT/HCPCS: 62321; J1030; Q9967

== ENCOUNTER → 2019-05-30 | Outpatient (CLI) | payer OTHER ==
[~2019-05-30] MED LIST changes: +ATOR40TA75 PO; -ISOVUE-M 300 61% 15ML VIAL (Q9967) As Ordered ONE; -LIDOCAINE 1% SDV INJ 30 ML VIAL As Ordered ONE; +METO200T28 PO; -NORCO, ANEXSIA 5/325MG TABLET (HYDROcodone/ACETAMINOPHEN) As Ordered ONE; -methylPREDNISolone SUSP 40 MG/ML (DEPO-medrol) VIAL (J1030) As Ordered ONE
--- NOTE | 2019-06-18 04:23 | ECWPNPC ---
PATIENT NAME: CHRISTIAN TORRES : 1990 GENDER: MALE VISIT DATE: 05/30/2019 DISCHARGE DATE: 05/30/19 1400 VISIT LOCKED DATE TIME: PHYSICIAN: EMIGDIO LOPEZ RESOURCE: EMIGDIO LOPEZ REASON FOR APPOINTMENT 1. POST EPIDURAL HISTORY OF PRESENT ILLNESS HISTORY OF PRESENT ILLNESS: HERE FOR POST PROCEDURE FOLLOW-UP. HAD, CERVICAL EPIDURAL STEROID INJECTION C7-T1 ON 05/14/2019. REPORTING RESOLUTION OF LEFT ARM NUMBNESS AND TINGLING TO INCLUDE RING AND MIDDLE FINGER. REPORTS NO CHANGE IN NECK PAIN POSTPROCEDURE. LEFT NECK AND UPPER BACK IS AGGRAVATED WITH USE OF HIS NECK OR ARM. RATING PAIN LEVEL A 6/10 VAS. REPORTING INTERMITTENT SHARP LEFT UPPER ARM PAIN THAT IS NEW SINCE CERVICAL EPIDURAL STEROID INJECTION. REVIEWED MRI OF THE CERVICAL SPINE AND DISCUSSED TREATMENT OPTIONS. PAIN THE PATIENT DESCRIBES THE PAIN... FALL RISK SCREENING: SCREENING :NO FALLS REPORTED IN THE LAST YEAR CURRENT MEDICATIONS TAKING ROSUVASTATIN CALCIUM 40 MG TABLET 1 TABLET ORALLY ONCE A DAY, NOTES: 05-14-19699 TAKING MULTI FOR HIM - TABLET DIRECTED ORALLY , NOTES: 05-13-19799 TAKING METOPROLOL SUCCINATE 50 MG TABLET EXTENDED RELEASE DIRECTED ORALLY ONCE A DAY, NOTES: 05-14-19699 TAKING CETIRIZINE HCL 10 MG TABLET 1 TABLET ORALLY BEFORE BEDTIME, NOTES: 05-14-19699 NOT-TAKING NYSTATIN [id number] UNIT/GM OINTMENT 1 APPLICATION TO TIP OF PENIS EXTERNALLY TWICE A DAY; 15GRAMS, NOTES: 05-13-191999 NOT-TAKING FLEXERIL 10 MG TABLET 1 TABLET NEEDED ORALLY DAILY NOT-TAKING GABAPENTIN 300 MG CAPSULE 1 CAPSULE ORALLY ONCE A DAY NOT-TAKING TRAMADOL HCL 50 MG TABLET 1 TABLET NEEDED, WITH 1 ACETAMINOPHEN TABLET ORALLY EVERY 6 HOURS NEEDED MEDICATION LIST REVIEWED AND RECONCILED WITH THE PATIENT PAST MEDICAL HISTORY HTN HYPERLIPIDEMIA PTSD/DEPRESSION/ANXIETY GILBERT'S SYNDROME 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 SOCIAL HISTORY GENERAL: TOBACCO USE ARE YOU A:NONSMOKER OTHERS AT HOME: IN-LAW(S), OTHER NON-RELATIVE. EDUCATION LEVEL OF EDUCATION:[employer] DIET: REGULAR. LANGUAGE LANGUAGES SPOKEN:DANISH RECREATIONAL DRUG USE DRUG USE?NO EXERCISE: NO REGULAR EXERCISE. LEARNING BARRIERS / SPECIAL NEEDS BARRIERS TO LEARNING?NO PAIN CLINIC PFS, CLERGY, PUBLIC HEALTH REFERRALS PFS REFERRAL NEEDED?NO CLERGY REFERRAL NEEDED?NO PUBLIC HEALTH REFERRAL NEEDED?NO WAS THE PROVIDER NOTIFIED OF ANY PERTINENT INFO?NO HAS THE PATIENT BEEN EDUCATED REGARDING HIS/HER PLAN OF CARE?YES HAS THE PATIENT BEEN EDUCATED REGARDING PAIN, THE RISK FOR PAIN, THE IMPORTANCE OF EFFECTIVE PAIN MANAGEMENT, AND THE PAIN ASSESSMENT PROCESS?YES LATEX QUESTIONNAIRE LATEX ALLERGY : HAVE YOU EVER DEVELOPED ANY TYPE OF REACTION AFTER HANDLING LATEX PRODUCTS SUCH RUBBER GLOVES, CONDOMS, DIAPHRAGMS, BALLOONS, SOCKS, OR UNDERWEAR?NO LATEX ALLERGY : HAVE YOU EVER DEVELOPED ANY TYPE OF REACTION DURING OR AFTER DENTAL APPOINTMENT, VAGINAL/RECTAL EXAMINATION, SURGICAL PROCEDURE, OR ANY OTHER EXPOSURE?NO DATE ASKED : 04/23/2019 LATEX RISK : HAVE YOU EVER HAD ANY DIFFICULTY BREATHING OR HIVES AFTER EATING OR HANDLING ANY FRUITS, OR VEGETABLES; SUCH KIWI, BANANAS, STONE FRUITS, OR CHESTNUTSNO LATEX RISK : DO YOU HAVE A PREVIOUS PERSONAL HISTORY OF MORE THAN NINE SURGERIES, SPINA BIFIDA, OR REPEATED CATHERIZATIONS? NO LATEX RISK : ARE YOU FREQUENTLY EXPOSED TO LATEX PRODUCTS IN YOUR OCCUPATION?NO CAFFEINE CAFFEINE USE?YES 1 SODA PER, ENERGY DRINKS 1 PER WEEK, COFFEE OCCASIONAL ADVANCE DIRECTIVE ADVANCE DIRECTIVE DISCUSSED WITH PATIENT:YES PT HAS NO ADVANCED DIRECTIVES, DECLINES INFORMATION OR ASSISTANCE AT THIS TIME 05/30/2019 LAS RASTAFARI [id number] NONE MARITAL STATUS: .. ALCOHOL SCREENING DID YOU HAVE A DRINK CONTAINING ALCOHOL IN THE PAST YEAR?YES HOW OFTEN DID YOU HAVE SIX OR MORE DRINKS ON ONE OCCASION IN THE PAST YEAR?LESS THAN MONTHLY (1 POINT) HOW MANY DRINKS DID YOU HAVE ON A TYPICAL DAY WHEN YOU WERE DRINKING IN THE PAST YEAR?1 OR 2 (0 POINTS) HOW OFTEN DID YOU HAVE A DRINK CONTAINING ALCOHOL IN THE PAST YEAR?MONTHLY OR LESS (1 POINT) POINTS2 INTERPRETATIONNEGATIVE OCCUPATION: UNEMPLOYED. HOSPITALIZATION/MAJOR DIAGNOSTIC PROCEDURE NO HOSPITALIZATION HISTORY. REVIEW OF SYSTEMS REVIEWED BY: PROVIDER: EMIGDIO SEGUNDO . CONSTITUTIONAL: ANY CHANGE IN YOUR MEDICAL CONDITION? NO . CHILLS NO . FEVER NO . INFECTION: DO YOU HAVE NEW INFECTIONS? NO . DO YOU HAVE HISTORY OF MRSA? NO . MUSCULOSKELETAL: ANY NEW PATTERNS OF PAIN OR NUMBNESS? NO . GASTROENTEROLOGY: ANY NEW CHANGE IN BOWEL CONTROL? NO . GENITOURINARY: ANY NEW CHANGE IN BLADDER CONTROL? NO . IS THERE A CHANCE YOU COULD BE ? NO . HEMATOLOGY/LYMPH: DO YOU TAKE ANY BLOOD THINNERS? (FOR EXAMPLE- COUMADIN, PLAVIX, AGGRENOX, PLATEL, PRADAXA, OR XARELTO) NO . WHEN WAS YOUR LAST DOSE? DATE: TIME: . NEUROLOGY: HAVE YOU FALLEN IN THE PAST 12 MONTHS? NO . ANY NEW EXTREMITY NUMBNESS OR WEAKNESS? NO . CARDIOLOGY: DO YOU HAVE A PACEMAKER OR DEFIBRILLATOR? NO . RESPIRATORY: HAVE YOU BEEN SICK IN THE PAST WEEK? NO . FEVER NO . FLU LIKE SYMPTOMS? NO . COUGH NO . INTEGUMENTARY: DO YOU HAVE ANY RASHES OR OPEN SORES? NO . ALLERGIC/IMMUNO: ARE YOU ALLERGIC TO IV DYE? NO . ANY NEW ALLERGIES? NO . PSYCHIATRIC: DO YOU HAVE THOUGHTS OF HURTING YOURSELF OR SOMEONE ELSE? NO . ARE YOU ABUSED, NEGLECTED, OR IN AN UNSAFE ENVIRONMENT? NO . ENDOCRINOLOGY: ARE YOU DIABETIC? NO . OTHER: DO YOU NEED ANY PRESCRIPTIONS? NO . IF YES, PLEASE LIST: ____ . ANY NEW PROBLEMS WITH YOUR MEDICATIONS? NO . WHEN DID YOU LAST EAT? ____ . WHEN DID YOU LAST DRINK? ____ . WHAT DID YOU LAST DRINK? ____ . NAME OF PERSON DRIVING YOU HOME? ____ . DO YOU HAVE ANY OTHER QUESTIONS OR CONCERNS YES PT WOULD LIKE TO DISCUSS TRYING SOME PAIN MEDICATIONS . VITAL SIGNS WT 209.6 LBS, HT 67 IN, BMI 32.82 INDEX, BP 136/85 MM HG, HR 88 /MIN, RR 18 /MIN, TEMP 97.4 F, OXYGEN SAT % 95%, SAFE IN ENV? (Y/N) YES, REVIEWED BY: VIOLETTE. EXAMINATION GENERAL EXAMINATION: GENERAL AWAKE,ALERT ,PLEAASANT . PSYCH AFFECT NORMAL . LUNGS: LUNG DENTON ARE CLEAR TO AUSCULTATION BILATERALLY. GOOD MOVEMENT OF AIR . HEART: S1, S2 IN A REGULAR RATE AND RHYTHM. NO SIGNIFICANT MURMURS, RUBS OR GALLOPS NOTED . CERVICAL: TRIGGER POINTS:LEFT TRAPEZIUS ,SHOULDER,SCAPULAR.PAIN IS AGGREVATED WITH ROJM NECK AND USE OF LEFT ARM. DIAGNOSTIC TESTS REVIEWED CERVICAL MRI-02/13/19. ASSESSMENTS MYALGIA OF MUSCLE OF NECK - M79.18 (PRIMARY) TREATMENT MYALGIA OF MUSCLE OF NECK START CYCLOBENZAPRINE HCL TABLET, 10 MG, 1/2-1 TAB, ORALLY, Q8H PRN PAIN, 30 DAY(S), 30, REFILLS 1 NOTES: TPI LEFT TRAPEZIUS,SHOULDER,SCAPULAR. PROCEDURE CODES FA211 ESTABILISHED PATIENT [facility] CHARGE DISPOSITION & COMMUNICATION FOLLOW UP POST (REASON: TPI LEFT TRAPEZIUS,SHOULDER,SCAPULAR) ELECTRONICALLY SIGNED BY SANYA ARGUELLO ON 06/17/2019 AT 12:17 PM EDT DISCLAIMER : THIS IS A VISIT SUMMARY EXTRACTED FROM THE [employer] CHART. IT IS NOT A COPY OF THE [employer] PROGRESS NOTE. OSCAR
== END ==
LOC: M PAIN 13:00
PROVIDERS: ATTEND Nurse Practitioner Family
DX: M79.18 Myalgia, other site (principal)

== ENCOUNTER 2019-06-11 07:32 | Emergency (ER) | payer OTHER ==
[~2019-06-11] VITALS: Ht 170.2 cm; Wt 90.9 kg
[~2019-06-11 07:32] MED LIST changes: -ATOR40TA75 PO; -METO200T28 PO
[2019-06-11] MEDS ORDERED: ATOR40TA75 PO (07:46)
[2019-06-11] MEDS ORDERED: METO200T28 PO (07:46)
[2019-06-11] MEDS ORDERED: KETOROLAC 60 MG/2 ML VIAL (J1885) IM ONE (08:45)
[2019-06-11] MEDS ORDERED: methocarbamoL 750 MG TAB PO ONE (08:45)
[2019-06-11] MEDS ORDERED: ROBA750T4 PO (09:06)
[2019-06-11 09:20] VITALS: BP 131/85
== END 2019-06-11 09:25 | disposition home or self-care (01) ==
LOC: M ED 07:32 → EDBD 07:32 → M ED 09:25
DX: M62.830 Muscle spasm of back (principal); Z79.899 Other long term (current) drug therapy; Z91.018 Allergy to other foods
CPT/HCPCS: 96372; 99284; J1885

== ENCOUNTER → 2019-07-10 | Outpatient (CLI) | payer OTHER ==
[~2019-07-10] MED LIST changes: +ATOR40TA75 PO; +METO200T28 PO
--- NOTE | 2019-07-10 23:06 | ECWPNPC ---
PATIENT NAME: CHRISTIAN TORRES : 1990 GENDER: MALE VISIT DATE: 07/10/2019 DISCHARGE DATE: 07/10/19 1229 VISIT LOCKED DATE TIME: PHYSICIAN: EMIGDIO LOPEZ RESOURCE: EMIGDIO LOPEZ REASON FOR APPOINTMENT 1. MEDS HISTORY OF PRESENT ILLNESS HISTORY OF PRESENT ILLNESS: PHONE CALL TO PATIENT WHO GIVES PERMISSION FOR TELEMED VISIT TODAY. CONTINUES WITH NECK PAIN AND UPPER BACK PAIN, LEFT GREATER THAN RIGHT. STATES RECENTLY PAIN IS RADIATING INTO THE RIGHT SIDE. PAIN IS AGGRAVATED BY USE OF HIS ARMS. WAS SCHEDULED FOR TRIGGER POINT INJECTIONS BUT CANCELED DUE TO COVID CONCERNS. STATES HE TRIED FLEXERIL AT LAST VISIT AND THIS ISN'T HELPING. DISCUSSED MEDICATION AND TREATMENT OPTIONS. RATING PAIN LEVEL /X VAS. PAIN THE PATIENT DESCRIBES THE PAIN... FALL RISK SCREENING: SCREENING :NO FALLS REPORTED IN THE LAST YEAR CURRENT MEDICATIONS TAKING MULTI FOR HIM - TABLET DIRECTED ORALLY TAKING METOPROLOL SUCCINATE 50 MG TABLET EXTENDED RELEASE DIRECTED ORALLY ONCE A DAY TAKING CETIRIZINE HCL 10 MG TABLET 1 TABLET ORALLY BEFORE BEDTIME TAKING ATORVASTATIN CALCIUM 40 MG TABLET 1 TABLET ORALLY ONCE A DAY TAKING NYSTATIN [id number] UNIT/GM OINTMENT 1 APPLICATION TO TIP OF PENIS EXTERNALLY TWICE A DAY; 15GRAMS TAKING FLEXERIL 10 MG TABLET 1 TABLET NEEDED ORALLY DAILY TAKING GABAPENTIN 300 MG CAPSULE 1 CAPSULE ORALLY ONCE A DAY TAKING TRAMADOL HCL 50 MG TABLET 1 TABLET NEEDED, WITH 1 ACETAMINOPHEN TABLET ORALLY EVERY 6 HOURS NEEDED NOT-TAKING CYCLOBENZAPRINE HCL 10 MG TABLET 1/2-1 TAB ORALLY Q8H PRN PAIN MEDICATION LIST REVIEWED AND RECONCILED WITH THE PATIENT PAST MEDICAL HISTORY HTN HYPERLIPIDEMIA PTSD/DEPRESSION/ANXIETY GILBERT'S SYNDROME 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 SOCIAL HISTORY GENERAL: TOBACCO USE ARE YOU A:NONSMOKER OTHERS AT HOME: IN-LAW(S), OTHER NON-RELATIVE. EDUCATION LEVEL OF EDUCATION:[employer] DIET: REGULAR. LANGUAGE LANGUAGES SPOKEN:WOLOF NEW PATIENT PAIN DIARY TODAY'S VISITNOTES 07/10/2019 PATIENT DESCRIBES PAIN :HAVE IT ALL THE TIME, THROBBING, SHOOTING FROM 0-10, WHAT LEVEL IS YOUR PAIN TODAY?6 RECREATIONAL DRUG USE DRUG USE?NO EXERCISE: NO REGULAR EXERCISE. LEARNING BARRIERS / SPECIAL NEEDS BARRIERS TO LEARNING?NO PAIN CLINIC PFS, CLERGY, PUBLIC HEALTH REFERRALS PFS REFERRAL NEEDED?NO CLERGY REFERRAL NEEDED?NO PUBLIC HEALTH REFERRAL NEEDED?NO WAS THE PROVIDER NOTIFIED OF ANY PERTINENT INFO?NO HAS THE PATIENT BEEN EDUCATED REGARDING HIS/HER PLAN OF CARE?YES HAS THE PATIENT BEEN EDUCATED REGARDING PAIN, THE RISK FOR PAIN, THE IMPORTANCE OF EFFECTIVE PAIN MANAGEMENT, AND THE PAIN ASSESSMENT PROCESS?YES LATEX QUESTIONNAIRE LATEX ALLERGY : HAVE YOU EVER DEVELOPED ANY TYPE OF REACTION AFTER HANDLING LATEX PRODUCTS SUCH RUBBER GLOVES, CONDOMS, DIAPHRAGMS, BALLOONS, SOCKS, OR UNDERWEAR?NO LATEX ALLERGY : HAVE YOU EVER DEVELOPED ANY TYPE OF REACTION DURING OR AFTER DENTAL APPOINTMENT, VAGINAL/RECTAL EXAMINATION, SURGICAL PROCEDURE, OR ANY OTHER EXPOSURE?NO LATEX RISK : HAVE YOU EVER HAD ANY DIFFICULTY BREATHING OR HIVES AFTER EATING OR HANDLING ANY FRUITS, OR VEGETABLES; SUCH KIWI, BANANAS, STONE FRUITS, OR CHESTNUTSNO LATEX RISK : DO YOU HAVE A PREVIOUS PERSONAL HISTORY OF MORE THAN NINE SURGERIES, SPINA BIFIDA, OR REPEATED CATHERIZATIONS? NO LATEX RISK : ARE YOU FREQUENTLY EXPOSED TO LATEX PRODUCTS IN YOUR OCCUPATION?NO DATE ASKED : 04/23/2019 CAFFEINE CAFFEINE USE?YES 1 SODA PER, ENERGY DRINKS 1 PER WEEK, COFFEE OCCASIONAL ADVANCE DIRECTIVE ADVANCE DIRECTIVE DISCUSSED WITH PATIENT:YES PT HAS NO ADVANCED DIRECTIVES, DECLINES INFORMATION OR ASSISTANCE AT THIS TIME. YAZIDISM [id number] NONE MARITAL STATUS: .. ALCOHOL SCREENING DID YOU HAVE A DRINK CONTAINING ALCOHOL IN THE PAST YEAR?YES HOW OFTEN DID YOU HAVE SIX OR MORE DRINKS ON ONE OCCASION IN THE PAST YEAR?LESS THAN MONTHLY (1 POINT) HOW MANY DRINKS DID YOU HAVE ON A TYPICAL DAY WHEN YOU WERE DRINKING IN THE PAST YEAR?1 OR 2 (0 POINTS) HOW OFTEN DID YOU HAVE A DRINK CONTAINING ALCOHOL IN THE PAST YEAR?MONTHLY OR LESS (1 POINT) POINTS2 INTERPRETATIONNEGATIVE OCCUPATION: UNEMPLOYED. HOSPITALIZATION/MAJOR DIAGNOSTIC PROCEDURE DENIES PAST HOSPITALIZATION REVIEW OF SYSTEMS REVIEWED BY: PROVIDER: EMIGDIO SEGUNDO . CONSTITUTIONAL: ANY CHANGE IN YOUR MEDICAL CONDITION? NO . CHILLS NO . FEVER NO . INFECTION: DO YOU HAVE NEW INFECTIONS? NO . DO YOU HAVE HISTORY OF MRSA? NO . MUSCULOSKELETAL: ANY NEW PATTERNS OF PAIN OR NUMBNESS? YES, NEW PAIN RADIATING TO RIGHT SHOULDER . GASTROENTEROLOGY: ANY NEW CHANGE IN BOWEL CONTROL? NO . GENITOURINARY: ANY NEW CHANGE IN BLADDER CONTROL? NO . IS THERE A CHANCE YOU COULD BE ? NO . HEMATOLOGY/LYMPH: DO YOU TAKE ANY BLOOD THINNERS? (FOR EXAMPLE- COUMADIN, PLAVIX, AGGRENOX, PLATEL, PRADAXA, OR XARELTO) NO . WHEN WAS YOUR LAST DOSE? DATE: TIME: . NEUROLOGY: HAVE YOU FALLEN IN THE PAST 12 MONTHS? NO . ANY NEW EXTREMITY NUMBNESS OR WEAKNESS? NO . CARDIOLOGY: DO YOU HAVE A PACEMAKER OR DEFIBRILLATOR? NO . RESPIRATORY: HAVE YOU BEEN SICK IN THE PAST WEEK? NO . FEVER NO . FLU LIKE SYMPTOMS? NO . COUGH NO . INTEGUMENTARY: DO YOU HAVE ANY RASHES OR OPEN SORES? NO . ALLERGIC/IMMUNO: ARE YOU ALLERGIC TO IV DYE? NO . ANY NEW ALLERGIES? NO . PSYCHIATRIC: DO YOU HAVE THOUGHTS OF HURTING YOURSELF OR SOMEONE ELSE? NO . ARE YOU ABUSED, NEGLECTED, OR IN AN UNSAFE ENVIRONMENT? NO . ENDOCRINOLOGY: ARE YOU DIABETIC? NO . OTHER: DO YOU NEED ANY PRESCRIPTIONS? NO . IF YES, PLEASE LIST: ____ . ANY NEW PROBLEMS WITH YOUR MEDICATIONS? YES, STATES HE STOPPED THE CYCLOBENZAPRINE HE FELT IT WASN'T HELPING WITH THE PAIN . WHEN DID YOU LAST EAT? ____ . WHEN DID YOU LAST DRINK? ____ . WHAT DID YOU LAST DRINK? ____ . NAME OF PERSON DRIVING YOU HOME? ____ . DO YOU HAVE ANY OTHER QUESTIONS OR CONCERNS YES, WOULD LIKE TO DISCUSS OTHER MEDICATION MANAGEMENT, WANTS TO HOLD OFF ON TRIGGER POINT INJECTIONS AT THIS TIME DUE TO INCREASED RISK WITH COVID-19 . ASSESSMENTS MYALGIA OF MUSCLE OF NECK - M79.18 (PRIMARY) TREATMENT MYALGIA OF MUSCLE OF NECK STOP FLEXERIL TABLET, 10 MG, 1 TABLET NEEDED, ORALLY, DAILY START TIZANIDINE HCL TABLET, 4 MG, 1-1-1/2 TAB, ORALLY, Q6H PRN MDD4, 30 DAYS, 60, REFILLS 1 NOTES: ADVISED TO USE, TIZANIDINE 4 MG HALF TABLET TO ONE FULL TABLET EVERY 6 HOURS NEEDED FOR MUSCLE SPASM TYPE PAIN NECK AND UPPER BACK. RETURN TO CLINIC IN 4-6 WEEKS TO CONSIDER INTERVENTIONAL OPTIONS. TIME SPENT DURING TELEMED VISIT TODAY APPROXIMATELY 11 MINUTES. DISPOSITION & COMMUNICATION FOLLOW UP 4-6WKS . PREPROCEDURE (REASON: NECK PAIN) ELECTRONICALLY SIGNED BY SANYA ARGUELLO ON 07/10/2019 AT 01:53 PM EDT DISCLAIMER : THIS IS A VISIT SUMMARY EXTRACTED FROM THE [employer] CHART. IT IS NOT A COPY OF THE [employer] PROGRESS NOTE. OSCAR
== END ==
LOC: M PAIN 10:30
PROVIDERS: ATTEND Nurse Practitioner Family
DX: M79.18 Myalgia, other site (principal); I10 Essential (primary) hypertension; E78.5 Hyperlipidemia, unspecified; Z86.59 Personal history of other mental and behavioral disorders; Z91.018 Allergy to other foods; Z79.899 Other long term (current) drug therapy

== ENCOUNTER → 2019-08-06 | Outpatient (CLI) | payer OTHER ==
[~2019-08-06] MED LIST changes: +CYCL-707 PO; -CYCL10TA PO
--- NOTE | 2019-08-12 12:26 | SLEEPHOME ---
DATE OF PROCEDURE: 08/06/2019 INTERPRETATION: Diagnostic home sleep testing was performed for evaluation of sleep apnea syndrome in this patient with history of excessive somnolence. For testing a nocturnal T3 respiratory monitoring device was used. Continuous record was made of pulse, oxygen saturation, airflow, chest, abdominal strain and body position. 9 hours and 59 minutes of data were reviewed. There were 7 hours and 2 minutes marked as time in bed. During the interval marked time in bed, there were 150 respiratory events identified of 10 seconds in duration or greater. The events were primarily obstructive, 11 mixed and central apneas were seen. Baseline pulse rate 67, pulse rate ranged 46-120. Baseline saturation 94%. Saturations fell to 74%. Testing was performed in both the supine and non-supine positions. IMPRESSION: Abnormal home sleep testing with repetitive respiratory events and oxygen desaturations to 74% with a respiratory event index of 21.3 is consistent with the obstructive sleep apnea syndrome. RECOMMENDATIONS: The patient should be encouraged to undergo formal sleep evaluation.
== END ==
LOC: M SLEEP HO 09:35
PROVIDERS: ATTEND Physician Assistant Medical
DX: R40.0 Somnolence (principal); G47.8 Other sleep disorders

== ENCOUNTER 2019-12-07 08:11 | Emergency (ER) | payer OTHER ==
[~2019-12-07] VITALS: Ht 170.2 cm; Wt 93.4 kg
[~2019-12-07 08:11] MED LIST changes: -ALL10TAB29 PO; +CETI-24 PO
[2019-12-07] MEDS ORDERED: IBUPROFEN 800 MG TAB PO ONE (08:30)
[2019-12-07 09:41] VITALS: BP 135/81
--- NOTE | 2020-01-02 16:03 | REP ---
LEFT KNEE RADIOGRAPHS CLINICAL: Trauma with pain. TECHNIQUE: AP, lateral, bilateral oblique, and sunrise views of the left knee. FINDINGS: Osseous structures, joint spaces, and surrounding soft tissues are normal/age appropriate. No acute fracture or dislocation. No effusion. No significant osteoarthritic changes. IMPRESSION: Normal age appropriate left knee radiographs. MTDD
== END 2019-12-07 09:48 | disposition home or self-care (01) ==
LOC: M ED 08:11
DX: S86.912A Strain of unspecified muscle(s) and tendon(s) at lower leg level, left leg, initial encounter (principal); S83.92XA Sprain of unspecified site of left knee, initial encounter; X58.XXXA Exposure to other specified factors, initial encounter; Y92.89 Other specified places as the place of occurrence of the external cause; I10 Essential (primary) hypertension; E78.5 Hyperlipidemia, unspecified; Z79.899 Other long term (current) drug therapy; Z91.018 Allergy to other foods

== ENCOUNTER 2020-11-04 02:10 | Emergency (ER) | payer OTHER ==
[~2020-11-04] VITALS: Ht 170.2 cm; Wt 90.9 kg
[2020-11-04 03:41] LABS: BASO % 0.3 % (0.0-1.0); HEMATOCRIT 43.9 % (42.0-52.0); HEMOGLOBIN 15.5 g/dl (13.5-17.5); LYMPH # 1.4 10^3/uL (1.5-5.0); LYMPH % 13.7 % (24.0-44.0); MEAN CORPUSCULAR HEMOGLOBIN 31.6 pg (27.0-33.0); MEAN CORPUSCULAR HGB CONC 35.3 g/dl (32.0-36.5); MEAN CORPUSCULAR VOLUME 89.6 fl (80.0-96.0); MONO # 0.4 10^3/uL (0.0-0.8); MONO % 3.5 % (2.0-8.0); NEUTROPHILS # 8.5 10^3/uL (1.5-8.5); NEUTROPHILS % 82.1 % (36.0-66.0); PLATELET COUNT, AUTOMATED 267 10^3/uL (150-450); WHITE BLOOD COUNT 10.3 10^3/uL (4.0-10.0)
[2020-11-04 04:09] LABS: ALT/SGPT 61 U/L (12-78); BILIRUBIN,DIRECT 0.3 MG/DL (0.0-0.2); BILIRUBIN,TOTAL 1.7 MG/DL (0.2-1.0); BLOOD UREA NITROGEN 14 MG/DL (7-18); CALCIUM LEVEL 9.3 MG/DL (8.5-10.1); CARBON DIOXIDE LEVEL 29 MEQ/L (21-32); CHLORIDE LEVEL 108 MEQ/L (98-107); CREATININE FOR GFR 0.74 MG/DL (0.70-1.30); GLOMERULAR FILTRATION RATE > 60.0 (>60); GLUCOSE, FASTING 118 MG/DL (70-100); LIPASE 136 U/L (73-393); POTASSIUM SERUM 4.2 MEQ/L (3.5-5.1); SODIUM LEVEL 141 MEQ/L (136-145); TOTAL PROTEIN 7.1 GM/DL (6.4-8.2)
[2020-11-04] MEDS ORDERED: KETOROLAC 30 MG/ML 1ML VIAL IV ONE (04:10)
[2020-11-04] MEDS ORDERED: ONDANSETRON 4MG/2ML VIAL IV ONE (04:10)
[2020-11-04] MEDS ORDERED: FLOM0.4C39 PO (06:44)
[2020-11-04] MEDS ORDERED: PERC5TAB12 PO ×3 (06:44→06:47)
[2020-11-04] MEDS ORDERED: TAMSULOSIN 0.4 MG CAP PO ONE (06:45)
[2020-11-04 07:30] VITALS: BP 113/69
[2020-11-04] MEDS ORDERED: PERCOCET 5MG/325MG TAB PO ONE (07:35)
[2020-11-13] MEDS ORDERED: MORPHINE 2 MG/ML 1ML VIAL (J2270) IV ONE (08:20)
[2020-11-13] MEDS ORDERED: NS 1,000 ML IV SCH (08:20)
[2020-11-13] MEDS ORDERED: ONDANSETRON 4MG/2ML VIAL IV PRN (08:20)
[2020-11-13] MEDS ORDERED: fentaNYL 250 MCG/5 ML INJECTION As Ordered ONE (14:02)
[2020-11-13] MEDS ORDERED: LIDOCAINE 2% 100MG/5ML SDV (FOR ANES.) As Ordered ONE (14:02)
[2020-11-13] MEDS ORDERED: propofoL 200 MG/20 ML VIAL As Ordered ONE (14:02)
[2020-11-13] MEDS ORDERED: MIDAZOLAM INJ 2MG/2ML VIAL (J2250 PER 1MG) As Ordered ONE (14:03)
[2020-11-13] MEDS ORDERED: ceFAZolin 2 GM/D5W 50 ML IV BAG (J0690 PER 500MG) As Ordered ONE (14:40)
[2020-11-13] MEDS ORDERED: dexameTHASONE 4 MG/ML 1ML VIAL (J1100 PER 1MG) As Ordered ONE (15:01)
[2020-11-13] MEDS ORDERED: ONDANSETRON 4MG/2ML VIAL As Ordered ONE (15:11)
== END 2020-11-04 07:40 | disposition home or self-care (01) ==
LOC: M ED 02:10
DX: N20.1 Calculus of ureter (principal); I10 Essential (primary) hypertension; Z79.899 Other long term (current) drug therapy; Z91.018 Allergy to other foods
CPT/HCPCS: 74176; 80048; 80076; 81001; 83690; 85025; 87086; 93041; 96374; 96375; 99285; J1885; J2405

== ENCOUNTER 2020-11-13 07:50 | Day surgery (SDC) | payer OTHER ==
[~2020-11-13] VITALS: Ht 170.2 cm; Wt 90.9 kg
[~2020-11-13 07:50] MED LIST changes: +PERC5TAB12 PO
[2020-11-13] MEDS ORDERED: ONDANSETRON 4MG/2ML VIAL IV PRN ×2 (08:25→16:15)
[2020-11-13] MEDS ORDERED: MORPHINE 2 MG/ML 1ML VIAL (J2270) IV ONE (08:30)
[2020-11-13] MEDS: NS 1,000 ML IV SCH ×3 (08:33→22:20)
[2020-11-13 08:45] LABS: BASO % 0.2 % (0.0-1.0); EOS % 0.1 % (0.0-3.0); HEMATOCRIT 43.9 % (42.0-52.0); HEMOGLOBIN 15.4 g/dl (13.5-17.5); LYMPH # 2.1 10^3/uL (1.5-5.0); LYMPH % 12.9 % (24.0-44.0); MEAN CORPUSCULAR HEMOGLOBIN 31.8 pg (27.0-33.0); MEAN CORPUSCULAR HGB CONC 35.1 g/dl (32.0-36.5); MEAN CORPUSCULAR VOLUME 90.7 fl (80.0-96.0); MONO # 1.2 10^3/uL (0.0-0.8); MONO % 7.2 % (2.0-8.0); NEUTROPHILS # 12.9 10^3/uL (1.5-8.5); NEUTROPHILS % 79.3 % (36.0-66.0); PLATELET COUNT, AUTOMATED 269 10^3/uL (150-450); RED BLOOD COUNT 4.84 10^6/uL (4.30-6.10); WHITE BLOOD COUNT 16.2 10^3/uL (4.0-10.0)
[2020-11-13 09:00] LABS: ALBUMIN 4.3 GM/DL (3.2-5.2); ALT/SGPT 57 U/L (12-78); BILIRUBIN,DIRECT 0.3 MG/DL (0.0-0.2); BILIRUBIN,TOTAL 5.3 MG/DL (0.2-1.0); BLOOD UREA NITROGEN 18 MG/DL (7-18); CALCIUM LEVEL 9.3 MG/DL (8.5-10.1); CARBON DIOXIDE LEVEL 27 MEQ/L (21-32); CHLORIDE LEVEL 106 MEQ/L (98-107); CREATININE FOR GFR 1.09 MG/DL (0.70-1.30); GLOMERULAR FILTRATION RATE > 60.0 (>60); GLUCOSE, FASTING 115 MG/DL (70-100); LIPASE 115 U/L (73-393); SODIUM LEVEL 141 MEQ/L (136-145); TOTAL PROTEIN 7.5 GM/DL (6.4-8.2)
--- NOTE | 2020-11-13 09:46 | REP ---
INDICATION: FLANK PAIN, KIDNEY STONE. COMPARISON: Abdomen/pelvis CT dated 11/04/2020, without IV contrast. TECHNIQUE: Abdomen/pelvis CT without IV contrast. FINDINGS: There is a 6 mm calculus in the proximal right ureter. This has migrated slightly distally from its position on the comparison CT. Mild right hydronephrosis persists, unchanged. There are calcifications in the pelvis, not within the ureter, likely phleboliths. No bladder calculi are identified. No other renal calculi are identified. No calculi are identified in the left kidney or ureter. The visualized lung cho are unremarkable. The unenhanced hepatic parenchyma, gallbladder, pancreas, spleen, adrenals, abdominal aorta, bowel and mesentery are unremarkable. Pelvis: The pelvic bowel loops are unremarkable. There is no ascites or adenopathy. IMPRESSION: The known 6 mm calculus in the proximal right ureter has migrated a few cm distally from its previous location. Mild right hydronephrosis persists. <Electronically signed by Son Hernandez > 11/13/20 0943
[2020-11-13] MEDS ORDERED: HOME MED LIST COMPLETE! XX SCH (10:55)
[2020-11-13 11:31] LABS: RSV AMPLIFICATION NEGATIVE (NEGATIVE)
--- NOTE | 2020-11-13 13:39 | CR.PDOC ---
General Date of Consultation: Nov 13, 2020 Consultation REASON FOR CONSULTATION/CHIEF COMPLAINT: Right flank pain with a 6 mm proximal to mid ureteral stone HISTORY OF PRESENT ILLNESS: The patient is a 30-year-old gentleman who was seen last week in the hospital with right flank pain radiating to the groin found to have a 6 mm proximal stone. He had passed for 5 stones in the past without intervention and had decided to go home. He has been taking tamsulosin and pain medication and had been pain-free for several days and then the pain restarted severely yesterday. He has mostly right lower quadrant pain but also back pain and pain into the testicle with related nausea and vomiting. He has had gross hematuria but denies any burning with urination. He has noticed that his urinary stream is more stop and go than normal. ALLERGIES: Please see below. HOME MEDICATIONS: Please see below. PAST MEDICAL HISTORY: -High blood pressure -Hypercholesterolemia PAST SURGICAL HISTORY: -Nose surgery FAMILY HISTORY: No family history of kidney stones. His grandfather had kidney disease. SOCIAL HISTORY: Marital status and/or living arrangements: He is engaged to be Children: 2 He does not smoke cigarettes and he drinks alcohol occasionally he denies any drug use REVIEW OF SYSTEMS: He denies any fever or chills. A 12 system review is negative except for above. PHYSICAL EXAMINATION: VITAL SIGNS: Please see below. GENERAL APPEARANCE: Well-developed, well-nourished gentleman in no apparent respiratory distress appearing slightly uncomfortable HEENT: Normocephalic atraumatic PERRLA and EOMI RESPIRATORY: Clear to auscultation and percussion CARDIOVASCULAR: Regular rate and rhythm ABDOMEN: Soft with some right lower quadrant tenderness and right flank discomfort EXTREMITIES: No cyanosis clubbing or edema NEUROLOGICAL: Nonfocal PSYCHIATRIC: Alert and oriented 3 LABORATORY DATA: Please see below. ASSESSMENT/PLAN: -6 mm mid to proximal stone which has moved only several centimeters in a week and the patient still in pain. At this point we will bring him to the operating room for cystoscopy, attempted right ureteroscopy, laser lithotripsy and/or stone basketing and stent placement. He understands because of the position of the stone and that the ureter is not dilated but there is no guarantee that we will be able to remove the stone today if we cannot that we will leave the stent in either we can try to remove the stent and see if the stone can pass then versus doing ureteroscopy at that time. Informed consent was obtained in both verbal and written form and the major risks of the procedure were discussed i ncluding but not limited to the risks of general anesthesia, reactions to medication, bleeding, infection, ureteral injury/bladder injury/urethral injury. -History of Nephrolithiasis in a pt who has been able to pass his stones in the past -CT Scan 11/13/20 showed no other stones except for the 6 mm right ureteral stone Vital Signs/I&O Vital Signs Date Time Temp Pulse Resp B/P (MAP) Pulse Ox O2 Delivery O2 Flow Rate FiO2 11/13/20 13:15 84 18 122/73 (89) 98 Room Air 11/13/20 07:50 97.2 Laboratory Data Labs 24H Laboratory Tests 2 11/13/20 08:26: Immature Granulocyte % (Auto) 0.3, Neutrophils (%) (Auto) 79.3H, Lymphocytes (%) (Auto) 12.9L, Monocytes (%) (Auto) 7.2, Eosinophils (%) (Auto) 0.1, Basophils (%) (Auto) 0.2, Neutrophils # (Auto) 12.9H, Lymphocytes # (Auto) 2.1, Monocytes # (Auto) 1.2H, Eosinophils # (Auto) 0.0, Basophils # (Auto) 0.0, Nucleated Red Blood Cells % (auto) 0.0, Anion Gap 8, Glomerular Filtration Rate > 60.0, Calcium Level 9.3, Total Bilirubin 5.3H, Direct Bilirubin 0.3H, Aspartate Amino Transf (AST/SGOT) 32, Alanine Aminotransferase (ALT/SGPT) 57, Alkaline Phosphatase 78, Total Protein 7.5, Albumin 4.3, Albumin/Globulin Ratio 1.3, Lipase 115 11/13/20 08:27: Urine Color JUDITH, Urine Appearance CLOUDYH, Urine pH 5.0, Urine Specific [place] 1.028, Urine Protein 2+H, Urine Glucose (UA) NEGATIVE, Urine Ketones TRACEH, Urine Blood 3+H, Urine Nitrite NEGATIVE, Urine Bilirubin NEGATIVE, Urine Urobilinogen 0.2, Urine Leukocyte Esterase NEGATIVE, Urine WBC (Auto) 4H, Urine RBC (Auto) TNTCH, Urine Hyaline Casts (Auto) 0, Urine Bacteria (Auto) 1+H, Urine Squamous Epithelial Cells 0, Urine Mucus (Auto) LARGE, Urine Sperm (Auto) 11/13/20 08:48: POC Glucose (Misc Panel) 116H, POC Sodium (Misc Panel) 141, POC Potassium (Misc Panel) 3.9, POC Chloride (Misc Panel) 102, POC Total CO2 (Misc Panel) 26.0, POC Blood Urea Nitrogen (Misc Panel 19, POC Ionized Calcium (Misc Panel) 4.8, POC Creatinine (Misc Panel) 1.0, POC Hematocrit (Misc Panel) 46.0 11/13/20 10:43: Coronavirus (COVID-19)(PCR) NEGATIVE, Influenza Type A (RT-PCR) NEGATIVE, Influenza Type B (RT-PCR) NEGATIVE, Respiratory Syncytial Virus (PCR) NEGATIVE CBC/BMP Laboratory Tests 11/13/20 08:26 Allergies Coded Allergies: coconut (Verified Allergy, Unknown, 09/04/18) Home Medications Scheduled Tamsulosin HCl (Flomax) 0.4 Mg Capsule, 1 CAP PO DAILY, #20 once daily 1/2 hour following the same meal each day Scheduled PRN Oxycodone HCl/Acetaminophen (Percocet 5-325 mg Tablet) 1 Each Tablet, 1 TAB PO Q6H PRN for PAIN, #12 KUMAR LAU MD Nov 13, 2020 13:39
[2020-11-13] MEDS ORDERED: LIDOCAINE 2% 100MG/5ML SDV (FOR ANES.) ONE (14:02)
[2020-11-13] MEDS ORDERED: propofoL 200 MG/20 ML VIAL ONE (14:02)
[2020-11-13] MEDS ORDERED: fentaNYL 250 MCG/5 ML INJECTION (J3010) ONE (14:02)
[2020-11-13] MEDS ORDERED: MIDAZOLAM INJ 2MG/2ML VIAL (J2250 PER 1MG) ONE (14:03)
[2020-11-13] MEDS ORDERED: CONRAY-60 60% 50ML VIAL (Q9961) As Ordered ONE (14:09)
[2020-11-13] MEDS ORDERED: ceFAZolin 2 GM/D5W 50 ML IV BAG (J0690 PER 500MG) ONE (14:40)
[2020-11-13] MEDS ORDERED: dexameTHASONE 4 MG/ML 1ML VIAL (J1100 PER 1MG) ONE (15:01)
[2020-11-13] MEDS ORDERED: ONDANSETRON 4MG/2ML VIAL ONE (15:11)
[2020-11-13] MEDS ORDERED: LIDOCAINE 2% 5ML JELLY UROJET As Ordered ONE (15:27)
--- NOTE | 2020-11-13 15:44 | ROOPDOC ---
[facility] Report Of Operation Report of Operation DATE OF PROCEDURE: 11/13/20 PREPROCEDURE DIAGNOSES: 6 mm mid/proximal right ureteral stone POSTPROCEDURE DIAGNOSES: Same PROCEDURE PERFORMED: Cystoscopy, Right Ureteroscopy, Right Laser Lithotripsy, Right Ureteral Stent Placement SURGEON: Sujey Lau MD SOIL CONSERVATION TECHNICIAN: None ANESTHESIA: General ESTIMATED BLOOD LOSS: Approximately 2 mL. COMPLICATIONS: None REMARKS: Stone broken into very small fragments FINDINGS: SPECIMENS REMOVED: None PROCEDURE NOTE: The patient has a 1-1/2 week history of right flank pain seen in the ER last week with a 6 mm proximal right ureteral stone. The pt was sent home on pain medication, Flomax and had done well for several days. He came in today because the pain had restarted with nausea and vomiting. A repeat CT scan showed that the stone had moved but only several millimeters. There were no other stones seen in the kidney. After discussing all different options, alternatives, risks, benefits it was decided to bring him to the operating room for stone management. We discussed exactly what would be done and what to expect both pre-and post-procedurally. He understood that there was a risk that we would not be open to remove the stent today and that he may require a second surgical procedure in the future. Also understands the stent will be in place and that this will need to be removed in the future and that this can cause discomfort post-procedurally. Informed consent was obtained in both verbal and written form. DESCRIPTION OF PROCEDURE: The patient was brought into the operating room. Sequential compression devices and ROCK stockings were in place and preoperative antibiotics had been given with 2 g of Ancef. General anesthesia was induced and he was placed in the lithotomy position. Careful attention was placed to this pressure points were well padded and protected. He was prepped and draped in the usual fashion. Next a 21 Honduran cystoscope was inserted. The urethra was noted to be open without any evidence of lesions or strictures. The prostatic urethra was nonobstructing. Upon entering the bladder both ureteral orifices were seen. There was no evidence of stones, erythematous patches, or other abnormalities. At this point a wire was placed up the right ureteral orifice and left as a safety wire. A second wire was then placed and a ureteral reentry catheter was placed over the wire. Next a flexible cystoscope was inserted and the stone was seen. The laser wire was placed and the stone was broken into all extremely small fragments. The ureteroscope was removed. A 6 Honduran double-J ureteral stent was placed over the wire and then the wire was removed. Using fluoroscopy it showed that there was an excellent curl up in the renal pelvis and down in the bladder. The patient tolerated the procedure well was returned to the recovery room in stable condition. SUJEY LAU MD Nov 13, 2020 15:44
[2020-11-13] MEDS ORDERED: ceFAZolin SOD 2 GM in IV 1 EA IV ONE (16:00)
[2020-11-13] MEDS ORDERED: oxyCODONE 5MG TAB PO PRN (16:15)
[2020-11-13] MEDS ORDERED: fentaNYL 100 MCG/2 ML INJECTION (J3010) IV PRN (16:15)
[2020-11-13] MEDS ORDERED: MEPERIDINE INJ 25 MG/ML VIAL (J2175) IV PRN (16:15)
[2020-11-13] MEDS ORDERED: LR 1,000 ML IV SCH (16:15)
[2020-11-13] MEDS ORDERED: MORPHINE 2 MG/ML 1ML VIAL (J2270) IV PRN (16:55)
[2020-11-13 17:00] VITALS: BP 144/92
[2020-11-13] MEDS: ACETAMINOPHEN TAB 650MG DOSE (2X325MG) PO PRN ×2 (17:29→20:34)
[2020-11-13 17:30] VITALS: BP 143/90
[2020-11-13 18:30] VITALS: BP 141/88
[2020-11-13 19:30] VITALS: BP 144/80
[2020-11-13 20:30] VITALS: BP 138/82
[2020-11-13 21:30] VITALS: BP 135/78
[2020-11-14 02:00] VITALS: BP 141/81
[2020-11-14 06:00] VITALS: BP 132/77
[2020-11-14] MEDS: ACETAMINOPHEN TAB 650MG DOSE (2X325MG) PO PRN (08:12)
[2020-11-14 10:00] VITALS: BP 140/77
== END 2020-11-14 11:05 | disposition home or self-care (01) ==
LOC: M ED 07:50 → M SDC 14:58 → M MS5PR 16:50 → M SDC 11-14 11:05
PROVIDERS: ATTEND Specialist
DX: N20.0 Calculus of kidney (principal); I10 Essential (primary) hypertension; E78.5 Hyperlipidemia, unspecified; Z79.899 Other long term (current) drug therapy
CPT/HCPCS: 52356; 74420; 80047; 80048; 80076; 81001; 83690; 85025; 87631; 93041; 94760; 96361; 96374; 96375; 99285; C1769; C1894; C2617; J0690; J1100; J2250; J2270; J2405; J3010; Q9961

== ENCOUNTER 2021-01-23 21:13 | Emergency (ER) | payer OTHER ==
[~2021-01-23] VITALS: Ht 170.2 cm; Wt 91.0 kg
--- OUTSIDE RECORDS SUMMARY | 2021-01-23 21:20 | CCD ---
Author Author [facility] Organization [facility] Address Unknown Phone Unavailable Care Team Providers Care Damage Prevention Coordinator Name Role Phone Gustavo Hoffmann Unavailable PROBLEMS Type Condition ICD9-CM Code QTP01-CD Code Onset Dates Condition S tatus W/U Status Risk SNOMED Code Notes Problem DDD (degenerative disc disease), lumbar M51.36 Active confirmed 47417096 Problem Depression with anxiety F41.8 Active confirmed 093839217 Problem Seasonal allergies J30.2 Active confirmed 4 35280777 Problem PTSD (post-traumatic stress disorder) F43.10 Ac tive confirmed 20901093 Problem Primary osteoarthritis of left knee M17.12 Acti ve confirmed [id number] Problem Essential hypertension I10 Active confirmed 50804757 Problem Post-traumatic osteoarthritis of both knees M17.2 Active confirmed 467913886 Problem H/O renal calculi Z87.442 Active confirmed 4 70872954 Problem Right bundle branch block I45.10 Active confirmed 86905739 Problem DDD (degenerative disc disease), cervical M50.30 Active confirmed 20301942 Problem Microscopic hematuria R31.29 Active confirmed 371413763 Problem Ureteral stone N20.1 Active confirmed 29321 009 Problem 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 Active confirmed 275 21053 Problem Retained ureteral stent Z96.0 Active confirmed 510148027 Problem Post-traumatic osteoarthritis of right knee M17.31 Active confirmed 749510895 Problem Cervical disc disease with myelopathy M50.00 Ac tive confirmed 98315224 Problem Cervical disc disorder with radiculopath y, unspecified cervical region M50.10 Active confirmed 649205826 Problem Mixed hyperlipidemia E78.2 Active confirmed 681753819 Problem Daytime somnolence R40.0 Active confirmed 1 13726223681 ALLERGIES Allergen (clinical drug ingredient) Drug/Non Drug Allergy do cumented on EMR Reaction Allergy Type Onset Date Status Coconuts Anaphylaxis Non Drug Allergy Active ENCOUNTERS from 1988 to 2020-12-08 Encounter Location Date Provider Diagnosis [facility] [address] [phone] [place] [address] Nov, Gustavo Hoffmann Ureteral stone N20.1 IMMUNIZATIONS Vaccine Route Administration Date Status Influenza 6mo & up Fluzone Unknown August 15, 2016 Other s SOCIAL HISTORY Tobacco Use: Social History Observation Description Date Details (start date - stop date) Never Smoker Sex Assigned At : Social History Observation Description Sex Assigned At Unknown Education: Question Answer Notes Level of Education: Grade School Audit Question Answer Notes Total Score: 1 Interpretation: Alcohol Education Language: Question Answer Notes Languages spoken: Jordanian Anabaptist: Question Answer Notes Anabaptist 31 None Sexual Hx: Question Answer Notes Had sex in the last 12 months (vaginal, oral, or anal)? Yes Have you ever had an STD? Yes Prevention Strategies discussed: Other with Women only Use protection? No Chlamydia? Yes Drug and Alcohol Question Answer Notes Total Score: 0 Interpretation: No problems reported Alcohol Screening: Question Answer Notes Did you have a drink containing alcohol in the past year? Ye s Points 2 Interpretation Negative How often did you have six or more drinks on one occas ion in the past year? Less than monthly (1 point) How many drinks did you have on a typica l day when you were drinking in the past year? 1 or 2 (0 points) How often did you have a drink containing alcohol in t he past year? Monthly or less (1 point) Tobacco Use: Question Answer Notes Are you a: never smoker REASON FOR REFERRAL No Information VITAL SIGNS No information MEDICATIONS Medication SIG (Take, Route, Frequency, Duration) Notes Start Da te End Date Status Oxybutynin Chloride 5 MG 1 tablet Orally Twice a day 2020 Active Pyridium 100 MG 1 tablet Orally Three times a day Nov, Active HYDROcodone-Acetaminophen 5-325 MG 1 tablet as needed Orally rosalba ry 6 hrs Nov, Active Levocetirizine Dihydrochloride 5 MG TAKE ONE TABLET BY MOUTH EVERY EVENING for 30 Active Metoprolol Succinate 50 MG 1 tab Orally Once a day for 30 days Active Multi For Him - as directed Orally A ctive Atorvastatin Calcium 40 MG TAKE ONE TABLET BY MOUTH EVERY DAY for 30 Active traMADol HCl 50 MG 1 tablet as needed Orally ev ted 4 hrs as needed for severe pain for 14 day(s) Pt already received medication. This is just a script since it was a voice order. Thank you. Nov, Active Metoprolol Succinate ER 50 MG TAKE ONE TABLET BY MOUTH EVERY DAY for 30 Active Flexeril 10 MG 1 tablet as needed Orally Daily Active PROCEDURES from 1988 to 2020-12-08 Procedure Date Ordered Result Body Site Med: Lidocaine Jelly 2% 6ml Intravesically (Glydo) 2020-12-07 N/A Medication: Cipro Tab 500mg Orally (Ciprofloxacin) 2020-12-07 N/A RESULTS No Results REASON FOR VISIT cysto stent removal MEDICAL (GENERAL) HISTORY Type Description Date Medical History HTN Medical History Hyperlipidemia Medical History PTSD/Depression/Anxiety Medical History Gilbert's syndrome Medical History RBBBlock Medical History Renal calculi Medical History OA of Bilat. Knees Medical History DDD of Lumbar spine Medical History Seasonal Allergies Surgical History Facial Reconstruction 2011 Surgical History cysto with stent removal 11/2020 Goals Section No Information Health Concerns No Information MEDICAL EQUIPMENT No Information MENTAL STATUS No Information FUNCTIONAL STATUS No Information ASSESSMENTS Encounter Date Diagnosis Assessment Notes Treatment Notes Treatm ent Clinical Notes Nov, Ureteral stone (ICD-10 - N20.1) PLAN OF TREATMENT Next Appt Details prn Reason: Insurance Providers Payer Name Payer Address Payer Phone Insured Name Patient Relati onship to Insured Coverage Start Date Coverage End Date [facility] [address] [facility] [id number] [employer]RISTIAN TORRES self
--- OUTSIDE RECORDS SUMMARY | 2021-01-23 21:20 | CCD ---
Author Author [facility] Organization [facility] Address Unknown Phone Unavailable Care Team Providers Care Administrative Sales Assistant Name Role Phone Sujey Ng Unavailable PROBLEMS Type Condition ICD9-CM Code QSH60-ZQ Code Onset Dates Condition S tatus W/U Status Risk SNOMED Code Notes Problem DDD (degenerative disc disease), lumbar M51.36 Active confirmed 87672773 Problem Depression with anxiety F41.8 Active confirmed 315223721 Problem Seasonal allergies J30.2 Active confirmed 4 41660437 Problem PTSD (post-traumatic stress disorder) F43.10 Ac tive confirmed 11961413 Problem Primary osteoarthritis of left knee M17.12 Acti ve confirmed 548415195226555 Problem Essential hypertension I10 Active confirmed 58754491 Problem Post-traumatic osteoarthritis of right knee M17.31 Active confirmed 468170532 Problem [place] disease E80.4 Active confirmed 275 19924 Problem Right bundle branch block I45.10 Active confirmed 94383625 Problem Mixed hyperlipidemia E78.2 Active confirmed 231044973 Problem Post-traumatic osteoarthritis of both knees M17.2 Active confirmed 924061796 Problem Daytime somnolence R40.0 Active confirmed 1 58116942646 Problem H/O renal calculi Z87.442 Active confirmed 4 39739997 Problem DDD (degenerative disc disease), cervical M50.30 Active confirmed 17853971 Problem Microscopic hematuria R31.29 Active confirmed 903253126 Problem Cervical disc disease with myelopathy M50.00 Ac tive confirmed 70143768 Problem Cervical disc disorder with radiculopath y, unspecified cervical region M50.10 Active confirmed 241064973 ALLERGIES Allergen (clinical drug ingredient) Drug/Non Drug Allergy do cumented on EMR Reaction Allergy Type Onset Date Status Coconuts Anaphylaxis Non Drug Allergy Active ENCOUNTERS from 1988 to 2020-11-15 Encounter Location Date Provider Diagnosis [facility] [address] [phone] [place] [address] Nov, Sujey Hernandez IMMUNIZATIONS Vaccine Route Administration Date Status Influenza [...] Education Language: Question Answer Notes Languages spoken: Kittitian Latter Day: Question Answer Notes Latter Day 33 None Sexual Hx: Question Answer Notes [...] Notes Start Da te End Date Status Metoprolol Succinate 50 MG 1 tab Orally Once a day for 30 days Active Flexeril 10 MG 1 tablet as needed Orally Daily Active Levocetirizine Dihydrochloride 5 MG TAKE ONE TABLET BY MOUTH EVERY EVENING for 30 Active Multi For Him - as directed Orally A ctive Atorvastatin Calcium 40 MG TAKE ONE TABLET BY MOUTH EVERY DAY for 30 Active Metoprolol Succinate ER 50 MG TAKE ONE TABLET BY MOUTH EVERY DAY for 30 Active traMADol HCl 50 MG 1 tablet as needed Orally ev ted 4 hrs as needed for severe pain for 14 day(s) Pt already received medication. This is just a script since it was a voice order. Thank you. Nov, Active PROCEDURES No Information RESULTS No Results REASON FOR VISIT Kidney stone MEDICAL (GENERAL) HISTORY Type Description Date Medical History HTN Medical History Hyperlipidemia Medical History PTSD/Depression/Anxiety Medical History Gilbert's syndrome Medical History RBBBlock Medical History Renal calculi Medical History OA of Bilat. Knees Medical History DDD of Lumbar spine Medical History Seasonal Allergies Surgical History Facial Reconstruction 2011 Goals Section No Information Health Concerns No Information MEDICAL EQUIPMENT No Information MENTAL STATUS No Information FUNCTIONAL STATUS No Information ASSESSMENTS No Information PLAN OF TREATMENT Medication Medication Name Sig Start Date Stop Date Metoprolol Succinate 50 MG 1 tab Orally Once a day for 30 days Atorvastatin Calcium 40 MG TAKE ONE TABLET BY MOUTH EVERY DAY fo r 30 Levocetirizine Dihydrochloride 5 MG TAKE ONE TABLET BY MOUTH EVERY EVENING for 30 Metoprolol Succinate ER 50 MG TAKE ONE TABLET BY MOUTH EVERY DAY for 30 traMADol HCl 50 MG 1 tablet as needed Orally ev ted 4 hrs as needed for severe pain for 14 day(s) Nov, Flexeril 10 MG 1 tablet as needed Orally Daily Next Appt Details Provider Name:Gustavo Hoffmann, 02:00:00 PM, [address], , [place], [address], Insurance Providers Payer Name Payer Address Payer Phone Insured Name Patient Relati onship to Insured Coverage Start Date Coverage End Date [facility] [address] [facility] [phone] CHRISTIAN TORRES self
--- OUTSIDE RECORDS SUMMARY | 2021-01-23 21:20 | CCD ---
Author Author [facility] Address Unknown Phone Unavailable Care Team Providers Care Stone Engraver Name Role Phone Ruthie Patel NP Unavailable Unavailable Ruthie Patel NP Unavailable Unavailable Ruthie Patel NP Unavailable Unavailable J Carlos LUTZ NP Unavailable Unavailable J Carlos LUTZ NP Unavailable Unavailable J Carlos LUTZ NP Unavailable Unavailable J Carlos LUTZ NP Unavailable Unavailable J Carlos LUTZ NP Unavailable Unavailable J Carlos LUTZ NP Unavailable Unavailable J Carlos LUTZ NP Unavailable Unavailable LAROCK, J KHALIDA CIVIL DESIGN TECHNICIAN Unavailable Unavailable LAROCK, J Carlos GAXIOLA CIVIL DESIGN TECHNICIAN Unavailable Unavailable LAROCK, J Carlos GAXIOLA CIVIL DESIGN TECHNICIAN Unavailable Unavailable LAROCK, J Carlos GAXIOLA CIVIL DESIGN TECHNICIAN Unavailable Unavailable LAROCK, J Carlos GAXIOLA CIVIL DESIGN TECHNICIAN Unavailable Unavailable LAROCK, J Carlos GAXIOLA CIVIL DESIGN TECHNICIAN Unavailable Unavailable LAROCK, J Carlos GAXIOLA CIVIL DESIGN TECHNICIAN Unavailable Unavailable LAROCK, J Carlos GAXIOLA CIVIL DESIGN TECHNICIAN Unavailable Unavailable LAROCK, J Carlos GAXIOLA CIVIL DESIGN TECHNICIAN Unavailable Unavailable LAROCK, J Carlos GAXIOLA CIVIL DESIGN TECHNICIAN Unavailable Unavailable LAROCK, J Carlos GAXIOLA CIVIL DESIGN TECHNICIAN Unavailable Unavailable LAROCK, J Carlos GAXIOLA CIVIL DESIGN TECHNICIAN Unavailable Unavailable LAROCK, J Carlos GAXIOLA CIVIL DESIGN TECHNICIAN Unavailable Unavailable LAROCK, J Carlos GAXIOLA CIVIL DESIGN TECHNICIAN Unavailable Unavailable LAROCK, J Carlos GAXIOLA CIVIL DESIGN TECHNICIAN Unavailable Unavailable Seb, Romeo Unavailable Seb, Romeo Unavailable ALIASES , ORGANIZATION NPI Unavailable Unavailable ALIASES , ORGANIZATION NPI Unavailable Unavailable ALIASES , ORGANIZATION NPI Unavailable Unavailable ALIASES , ORGANIZATION NPI Unavailable Unavailable ALIASES , ORGANIZATION NPI Unavailable Unavailable ALIASES , ORGANIZATION NPI Unavailable Unavailable ALIASES , ORGANIZATION NPI Unavailable Unavailable ALIASES , ORGANIZATION NPI Unavailable Unavailable ALIASES , ORGANIZATION NPI Unavailable Unavailable ALIASES , ORGANIZATION NPI Unavailable Unavailable ALIASES , ORGANIZATION NPI Unavailable Unavailable ALIASES , ORGANIZATION NPI Unavailable Unavailable ALIASES , ORGANIZATION NPI Unavailable Unavailable ALIASES , ORGANIZATION NPI Unavailable Unavailable ALIASES , ORGANIZATION NPI Unavailable Unavailable ALIASES , ORGANIZATION NPI Unavailable Unavailable ALIASES , ORGANIZATION NPI Unavailable Unavailable ALIASES , ORGANIZATION NPI Unavailable Unavailable ALIASES , ORGANIZATION NPI Unavailable Unavailable ALIASES , ORGANIZATION NPI Unavailable Unavailable ALIASES , ORGANIZATION NPI Unavailable Unavailable ALIASES , ORGANIZATION NPI Unavailable Unavailable ALIASES , ORGANIZATION NPI Unavailable Unavailable ALIASES , ORGANIZATION NPI Unavailable Unavailable ALIASES , ORGANIZATION NPI Unavailable Unavailable ALIASES , ORGANIZATION NPI Unavailable Unavailable ALIASES , ORGANIZATION NPI Unavailable Unavailable ALIASES , ORGANIZATION NPI Unavailable Unavailable ALIASES , ORGANIZATION NPI Unavailable Unavailable ALIASES , ORGANIZATION NPI Unavailable Unavailable ALIASES , ORGANIZATION NPI Unavailable Unavailable ALIASES , ORGANIZATION NPI Unavailable Unavailable ALIASES , ORGANIZATION NPI Unavailable Unavailable ALIASES , ORGANIZATION NPI Unavailable Unavailable ALIASES , ORGANIZATION NPI Unavailable Unavailable ALIASES , ORGANIZATION NPI Unavailable Unavailable ALIASES , ORGANIZATION NPI Unavailable Unavailable ALIASES , ORGANIZATION NPI Unavailable Unavailable ALIASES , ORGANIZATION NPI Unavailable Unavailable ALIASES , ORGANIZATION NPI Unavailable Unavailable ALIASES , ORGANIZATION NPI Unavailable Unavailable ALIASES , ORGANIZATION NPI Unavailable Unavailable ALIASES , ORGANIZATION NPI Unavailable Unavailable ALIASES , ORGANIZATION NPI Unavailable Unavailable ALIASES , ORGANIZATION NPI Unavailable Unavailable ALIASES , ORGANIZATION NPI Unavailable Unavailable ALIASES , ORGANIZATION NPI Unavailable Unavailable ALIASES , ORGANIZATION NPI Unavailable Unavailable ALIASES , ORGANIZATION NPI Unavailable Unavailable ALIASES , ORGANIZATION NPI Unavailable Unavailable ALIASES , ORGANIZATION NPI Unavailable Unavailable ALIASES , ORGANIZATION NPI Unavailable Unavailable ALIASES , ORGANIZATION NPI Unavailable Unavailable ALIASES , ORGANIZATION NPI Unavailable Unavailable ALIASES , ORGANIZATION NPI Unavailable Unavailable ALIASES , ORGANIZATION NPI Unavailable Unavailable ALIASES , ORGANIZATION NPI Unavailable Unavailable ALIASES , ORGANIZATION NPI Unavailable Unavailable ALIASES , ORGANIZATION NPI Unavailable Unavailable ALIASES , ORGANIZATION NPI Unavailable Unavailable ALIASES , ORGANIZATION NPI Unavailable Unavailable ALIASES , ORGANIZATION NPI Unavailable Unavailable ALIASES , ORGANIZATION NPI Unavailable Unavailable ALIASES , ORGANIZATION NPI Unavailable Unavailable ALIASES , ORGANIZATION NPI Unavailable Unavailable ALIASES , ORGANIZATION NPI Unavailable Unavailable ALIASES , ORGANIZATION NPI Unavailable Unavailable ALIASES , ORGANIZATION NPI Unavailable Unavailable ALIASES , ORGANIZATION NPI Unavailable Unavailable ALIASES , ORGANIZATION NPI Unavailable Unavailable ALIASES , ORGANIZATION NPI Unavailable Unavailable ALIASES , ORGANIZATION NPI Unavailable Unavailable ALIASES , ORGANIZATION NPI Unavailable Unavailable ALIASES , ORGANIZATION NPI Unavailable Unavailable Re-disclosure Warning The records that you are about to access may contain information from federally-assisted alcohol or drug abuse programs. If such information is present, then the following federally mandated warning applies: This information has been disclosed to you from records protected by federal confidentiality rules (42 CFR part 2). The federal rules prohibit you from making any further disclosure of this information unless further disclosure is expressly permitted by the written consent of the person to whom it pertains or as otherwise permitted by 42 CFR part 2. A general authorization for the release of medical or other information is NOT sufficient for this purpose. The Federal rules restrict any use of the information to criminally investigate or prosecute any alcohol or drug abuse patient.The records that you are about to access may contain highly sensitive health information, the redisclosure of which is protected by Article 27-F of the [facility] Public Health law. If you continue you may have access to information: Regarding HIV / AIDS; Provided by facilities licensed or operated by the [facility] Office of Mental Health; or Provided by the [facility] Office for People With Developmental Disabilities. If such information is present, then the following [facility] mandated warning applies: This information has been disclosed to you from confidential records which are protected by state law. State law prohibits you from making any further disclosure of this information without the specific written consent of the person to whom it pertains, or as otherwise permitted by law. Any unauthorized further disclosure in violation of state law may result in a fine or fdc sentence or both. A general authorization for the release of medical or other information is NOT sufficient authorization for further disc losure. Family History Family Member Name Family Member Gender Family Member Status Date o f Status Description Data Source(s) Unknown Unknown Problem [facility] ([facility]) Encounters Encounter Providers Location Date Indications Data Source(s ) ([facility]) Urology [address] [place] [address] 12/07/2020 12:00:00 AM EDT eCW1 ([facility] [place] [address] [place] [address] 12/02/2020 12:00:00 AM EDT eCW1 ([facility]) [place] [address] [place] [address] 11/30/2020 12:00:00 AM EDT eCW1 ([facility]) [place] [address] [place] [address] 11/15/2020 12:00:00 AM EDT eCW1 ([facility]) Unknown [address] [facility] [address] 11/15/2020 12:00:00 AM EDT eCW1 ([facility]) Extended Individual Psychotherapy - 45 min Attender: [facility] 05/14/2020 03:00:00 AM EST - 05/14/2020 03:00:00 AM EST [facility] ([facility]) Attender: Romeo Grigsby 05/14/2020 12:00:00 AM EST [facility] ([facility]) Outpatient Attender: KHALIDA LUTZ NP 07/2020 02:24:29 PM EST - 05/13/2020 03:28:05 PM EST [facility] ([facility] ) Extended Individual Psychotherapy - 45 min Attender: Denver Grigsby [facility] 03/19/2020 09:00:00 AM EST - 03/19/2020 09:00:00 AM EST [facility] ([facility]) Attender: Romeo Grigsby 03/19/2020 12:00:00 AM EST [facility] ([facility]) Outpatient Attender: Curtis Patel NP [facility] 03/12/2020 08:00:00 AM EST - 03/12/2020 08:00:00 AM EST [facility] ([facility]) Attender: Curtis Patel NP 03/12/2020 12:00:00 AM EST [facility] ([facility]) Telemed Diagnostic Eval Attender: Curtis Patel NP [facility] 02/20/2020 08:00:00 AM EST - 02/20/2020 08:00:00 AM EST [facility] ([facility]) Attender: Curtis Patel NP 02/20/2020 12:00:00 AM EST [facility] ([facility]) Extended Individual Psychotherapy - 45 min Attender: [facility] 02/03/2020 12:00:00 PM EDT - 02/03/2020 12:00:00 PM EDT [facility] ([facility]) Attender: Romeo Grigsby 02/03/2020 12:00:00 AM EDT [facility] ([facility]) Extended Individual Psychotherapy - 45 min Attender: [facility] 01/20/2020 11:00:00 AM EDT - 01/20/2020 11:00:00 AM EDT [facility] ([facility]) Attender: Romeo Grigsby 01/20/2020 12:00:00 AM EDT [facility] ([facility]) Attender: ORGANIZATION NPI ALIASES * 01/07/2020 12:00:00 AM EDT [facility] ([facility]) Extended Individual Psychotherapy - 45 min Attender: ORGANIZATION NPI ALIASES [facility] 01/06/2020 12:00:00 PM EDT - 01/06/2020 12:00:00 PM EDT [facility] ([facility]) Functional Status Medications Medication Brand Name Start Date Product Form Dose Route Admi nistrative Instructions Pharmacy Instructions Status Indications Reaction Description Data Source(s) Oxybutynin chloride 5 MG Oral Tablet Oxybutynin Chlori de 5 MG Oxybutynin Chloride 5 MG 11/30/2020 12:00:00 AM EDT 1.0 {tablet} active Oxybutynin Chloride 5 MG eCW1 ([facility]) Acetaminophen 325 MG / Hydrocodone Amita trate 5 MG Oral Tablet HYDROcodone- Acetaminophen 5-325 MG HYDROcodone-Acetaminophen 5-325 MG 11/30/2020 12:00:00 AM EDT 1.0 {tablet_as_needed} active HYDROcodone-Acetaminophen 5-325 MG eCW1 ([facility]) Oxybutynin chloride 5 MG Oral Tablet Oxybutynin Chlori de 5 MG Oxybutynin Chloride 5 MG 11/30/2020 12:00:00 AM EDT 1.0 {tablet} active Oxybutynin Chloride 5 MG eCW1 ([facility]) Acetaminophen 325 MG / Hydrocodone Amita trate 5 MG Oral Tablet HYDROcodone- Acetaminophen 5-325 MG HYDROcodone-Acetaminophen 5-325 MG 11/30/2020 12:00:00 AM EDT 1.0 {tablet_as_needed} active HYDROcodone-Acetaminophen 5-325 MG eCW1 ([facility]) Phenazopyridine hydrochloride 100 MG Oral Tablet [Pyri dium] Pyridium 100 MG Pyridium 100 MG 11/30/2020 12:00:00 AM EDT 1.0 {tablet} active Pyridium 100 MG eCW1 ([facility]) Oxybutynin chloride 5 MG Oral Tablet Oxybutynin Chlori de 5 MG Oxybutynin Chloride 5 MG 11/30/2020 12:00:00 AM EDT 1.0 {tablet} active Oxybutynin Chloride 5 MG eCW1 ([facility]) Acetaminophen 325 MG / Hydrocodone Amita trate 5 MG Oral Tablet HYDROcodone- Acetaminophen 5-325 MG HYDROcodone-Acetaminophen 5-325 MG 11/30/2020 12:00:00 AM EDT 1.0 {tablet_as_needed} active HYDROcodone-Acetaminophen 5-325 MG eCW1 ([facility]) Phenazopyridine hydrochloride 100 MG Oral Tablet [Pyri dium] Pyridium 100 MG Pyridium 100 MG 11/30/2020 12:00:00 AM EDT 1.0 {tablet} active Pyridium 100 MG eCW1 ([facility]) Phenazopyridine hydrochloride 100 MG Oral Tablet [Pyri dium] Pyridium 100 MG Pyridium 100 MG 11/30/2020 12:00:00 AM EDT 1.0 {tablet} active Pyridium 100 MG eCW1 ([facility]) tramadol hydrochloride 50 MG Oral Tablet traMADol HCl 50 MG traMADol HCl 50 MG 11/15/2020 12:00:00 AM EDT 1.0 {tablet_as_needed} active traMADol HCl 50 MG eCW1 ([facility]) tramadol hydrochloride 50 MG Oral Tablet traMADol HCl 50 MG traMADol HCl 50 MG 11/15/2020 12:00:00 AM EDT 1.0 {tablet_as_needed} active traMADol HCl 50 MG eCW1 ([facility]) tramadol hydrochloride 50 MG Oral Tablet traMADol HCl 50 MG traMADol HCl 50 MG 11/15/2020 12:00:00 AM EDT 1.0 {tablet_as_needed} active traMADol HCl 50 MG eCW1 ([facility]) tramadol hydrochloride 50 MG Oral Tablet traMADol HCl 50 MG traMADol HCl 50 MG 11/15/2020 12:00:00 AM EDT 1.0 {tablet_as_needed} active traMADol HCl 50 MG eCW1 ([facility]) tramadol hydrochloride 50 MG Oral Tablet traMADol HCl 50 MG traMADol HCl 50 MG 11/15/2020 12:00:00 AM EDT 1.0 {tablet_as_needed} active traMADol HCl 50 MG eCW1 ([facility]) 50 mg 03/19/2020 12:00:00 AM EST tablet extended release 24 hr 30 TAKE ONE TABLET BY MOUTH EVERY DAY TAKE ONE TABLET BY MOUTH EVERY DAY SOLD: 03/20/2020 [facility] 5 mg 03/19/2020 12:00:00 AM EST tablet 30 TAKE ONE TABLET BY MOUTH EVERY EVENING TAKE ONE TABLET BY MOUTH EVERY EVENING SOLD: 03/20/2020 [facility] atorvastatin 40 MG Oral Tablet ATORVASTATIN CALCIUM 03/19/2020 1 2:00:00 AM EST tablet 30 TAKE ONE TABLET BY MOUTH EVERY D AY TAKE ONE TABLET BY MOUTH EVERY DAY SOLD: 03/20/2020 [facility] 5 mg 03/19/2020 12:00:00 AM EST tablet 30 TAKE ONE TABLET BY MOUTH EVERY EVENING TAKE ONE TABLET BY MOUTH EVERY EVENING SOLD: 06/15/2020 [facility] atorvastatin 40 MG Oral Tablet ATORVASTATIN CALCIUM 03/19/2020 1 2:00:00 AM EST tablet 30 TAKE ONE TABLET BY MOUTH EVERY D AY TAKE ONE TABLET BY MOUTH EVERY DAY SOLD: 06/15/2020 [facility] 50 mg 03/19/2020 12:00:00 AM EST tablet extended release 24 hr 30 TAKE ONE TABLET BY MOUTH EVERY DAY TAKE ONE TABLET BY MOUTH EVERY DAY SOLD: 06/15/2020 [facility] 100 mg 03/12/2020 12:00:00 AM EST tablet 30 TAKE ONE TABLET BY MOUTH EVERY DAY TAKE ONE TABLET BY MOUTH EVERY DAY SOLD: 03/20/2020 [facility] buspirone hydrochloride 10 MG Oral Tablet BUSPIRONE HCL 03/12/2020 12:00:00 AM EST tablet 120 TAKE TWO TABLETS BY MOUTH TW ICE A DAY TAKE TWO TABLETS BY MOUTH TWICE A DAY SOLD: 06/15/2020 [facility] 100 mg 03/12/2020 12:00:00 AM EST tablet 30 TAKE ONE TABLET BY MOUTH EVERY DAY TAKE ONE TABLET BY MOUTH EVERY DAY SOLD: 05/04/2020 [facility] buspirone hydrochloride 10 MG Oral Tablet buspirone 2019 12:00:00 AM EST 10 mg by mouth completed <td ID="Medic ationRxNorm_1">[id number]</td><td ID="MedicationMedication_1">buspirone</td><td ID="MedicationRoute_1">by mouth</td><td ID="MedicationRouteConcept_1">P83462</td><td ID="MedicationStartDate_1">03/12/2020</td><td ID="MedicationStopDate_1">06/10/2020</td><td ID="MedicationDosageFrequency_1">twice a day</td><td ID="MedicationDuration_1">30</td><td ID="MedicationFormulaStrength_1">10 mg</td><td ID="MedicationDosageForm_1">tablet</td><td ID="MedicationDosageFormCode_1"></td><td ID="MedicationDosageDescription_1"></td><td ID="MedicationMedicationId_1">[id number]</td><td ID="MedicationAccount_1">[id number]</td><td ID="MedicationNpid_1">[id number]</td><td ID="MedicationAuthorFirstName_1">Curtis</td><td ID="MedicationAuthorLastName_1">Patel</td><td ID="MedicationTaxonomyCode_1">[id number]</td><td ID="MedicationTaxonomyDesc_1">Nurse Practitioner</td><td ID="MedicationPhoneNumber_1">[phone]</td> [facility] ([facility]) Sertraline 100 MG Oral Tablet sertraline 03/12/2020 12:00:00 AM EST 100 mg by mouth completed <td ID="Medica tionRxNorm_2">[id number]</td><td ID="MedicationMedication_2">sertraline</td><td ID="MedicationRoute_2">by mouth</td><td ID="MedicationRouteConcept_2">Z78282</td><td ID="MedicationStartDate_2">03/12/2020</td><td ID="MedicationStopDate_2">06/10/2020</td><td ID="MedicationDosageFrequency_2">once a day</td><td ID="MedicationDuration_2">30</td><td ID="MedicationFormulaStrength_2">100 mg</td><td ID="MedicationDosageForm_2">tablet</td><td ID="MedicationDosageFormCode_2"></td><td ID="MedicationDosageDescription_2"></td><td ID="MedicationMedicationId_2">[id number]</td><td ID="MedicationAccount_2">[id number]</td><td ID="MedicationNpid_2">[id number]</td><td ID="MedicationAuthorFirstName_2">Curtis</td><td ID="MedicationAuthorLastName_2">Patel</td><td ID="MedicationTaxonomyCode_2">[id number]</td><td ID="MedicationTaxonomyDesc_2">Nurse Practitioner</td><td ID="MedicationPhoneNumber_2">[phone]</td> [facility] ([facility]) buspirone hydrochloride 10 MG Oral Tablet BUSPIRONE HCL 03/12/2020 12:00:00 AM EST tablet 120 TAKE TWO TABLETS BY MOUTH TW ICE A DAY TAKE TWO TABLETS BY MOUTH TWICE A DAY SOLD: 03/20/2020 [facility] 100 mg 03/12/2020 12:00:00 AM EST tablet 30 TAKE ONE TABLET BY MOUTH EVERY DAY TAKE ONE TABLET BY MOUTH EVERY DAY SOLD: 06/15/2020 [facility] buspirone hydrochloride 10 MG Oral Tablet BUSPIRONE HCL 02/20/2020 12:00:00 AM EST tablet 60 TAKE ONE TABLET BY MOUTH TWI CE A DAY TAKE ONE TABLET BY MOUTH TWICE A DAY SOLD: 02/20/2020 [facility] 50 mg 02/20/2020 12:00:00 AM EST tablet 30 TAKE ONE TABLET BY MOUTH EVERY DAY TAKE ONE TABLET BY MOUTH EVERY DAY SOLD: 02/20/2020 [facility] 50 mg 12/06/2019 12:00:00 AM EDT tablet extended release 24 hr 30 TAKE ONE TABLET BY MOUTH EVERY DAY TAKE ONE TABLET BY MOUTH EVERY DAY SOLD: 12/06/2019 [facility] 5 mg 11/28/2019 12:00:00 AM EDT tablet 30 TAKE ONE TABLET BY MOUTH EVERY EVENING TAKE ONE TABLET BY MOUTH EVERY EVENING SOLD: 11/28/2019 [facility] atorvastatin 40 MG Oral Tablet ATORVASTATIN CALCIUM 11/28/2019 1 2:00:00 AM EDT tablet 30 TAKE ONE TABLET BY MOUTH EVERY D AY TAKE ONE TABLET BY MOUTH EVERY DAY SOLD: 11/28/2019 [facility] Insurance Providers Payer name Policy type / Coverage type Policy ID Covered green party ID Covered green party's relationship to mar Policy Mar Plan Information [employer] Veterans Choice Program VACAA F [id number] SELF [id number] Choice Benefits F [id number] SELF [id number] [place] [email or web address]. [id number] Self [id number] [facility] O [id number] S [id number] [facility] [id number] SP [id number] OTHER WORKERS COMPENSATION [id number] SP [id number] [facility] [id number] SP [id number] OTHER WORKERS COMPENSATION [id number] SP [id number] [facility]) O [id number] S [id number] 'S ADMINISTRATION [id number] SP [id number] MEDICAID [id number] SP [id number] ANSI-Commercial [id number] ANSI-Commercial [id number] ANSI-Commercial [id number] ANSI-Medicaid [id number] ANSI-Commercial [id number] ANSI-Commercial [id number] ANSI-Commercial [id number] ANSI-Medicaid [id number] ANSI-Commercial [id number] ANSI-Medicaid [id number] ANSI-Commercial [id number] ANSI-Commercial [id number] [facility] Maintenance Organization ([facility]) [id number] Self [id number] ANSI-Commercial [id number] ANSI-Medicaid [id number] ANSI-Commercial [id number] ANSI-Commercial [id number] ANSI-Medicaid [id number] ANSI-Commercial [id number] ANSI-Commercial [id number] ANSI-Commercial [id number] 'S ADMINISTRATION [id number] SP [id number] O UNAVAILABLE UNAVAILA BLE FIRST NIAGRA RISK MANAGE O [id number] C [id number] ANSI-Commercial [id number] ANSI-Tutor Assignment [id number] ANSIADR Software [id number] [facility] [id number] SP [id number] FIRST NIAGARA RISK MGMT [id number] SP [id number] [facility] [id number] SP [id number] O [id number] S [id number] Choice Benefits F [id number] SELF [id number] AMOS O [id number] S [id number] [facility] [id number] SP [id number] SELF PAY UNAVAILABLE SP UNAVAILA BLE [facility] [id number] SP [id number] [facility] O [id number] S [id number] Problems, Conditions, and Diagnoses Code Display Name Description Problem Type Effective Dates Data Source(s) N20.1 Ureteral stone Ureteral stone Problem 12/07/2020 12:00: 00 AM EDT eCW1 ([facility]) Z96.0 [id number] Retained ureteral stent Problem 11/30/2020 1 2:00:00 AM EDT eCW1 ([facility]) F41.9 Anxiety disorder, unspecified Unspecified Anxiety Diso rder Condition 05/14/2020 12:00:00 AM EST [facility] ([facility]) F43.12 Post-traumatic stress disorder, chronic Post-traumatic stress disorder, chronic Condition 05/14/2020 12:00:00 AM EST [facility] ([facility]) F32.9 Major depressive disorder, single episod e, unspecified Unspecified depressive Disorder Condition 05/14/2020 12:00:00 AM EST [facility] ([facility]) F32.9 Major depressive disorder, single episod e, unspecified Unspecified depressive Disorder Condition 02/03/2020 12:00:00 AM EDT [facility] ([facility]) F39. Unspecified mood [affective] disorder Un specified mood [affective] disorder Condition 02/03/2020 12:00:00 AM EDT [facility] ([facility]) Surgeries/Procedures Procedure Description Date Indications Data Source(s) TOBACCO USE ASSESSED 12/07/2020 12:00:00 AM EDT eCW1 ([facility]) Med: Lidocaine Jelly 2% 6ml Intravesically (Glydo) 12/07/2020 12:00:00 AM EDT eCW1 ([facility]) Extended Individual Psychotherapy - 45 min 05/14/2020 12:00:00 AM EST - 05/14/2020 12:00:00 AM EST [facility] ([facility]) Extended Individual Psychotherapy - 45 min 1 12:00:00 AM EST [facility] ([facility]) Extended Individual Psychotherapy - 45 min 03/19/2020 12:00:00 AM EST - 03/19/2020 12:00:00 AM EST [facility] ([facility]) Extended Individual Psychotherapy - 45 min 0 12:00:00 AM EST [facility] [facility] Telemed E/M Lvl 3--Est pt 03/12/2020 12:00:00 AM EST - 03/12/2020 12:00:00 AM EST [facility] ([facility]) Telemed A/O 30" 03/12/2020 12:00:00 AM EST [facility] ([facility] MHC Telemed E/M Lvl 3--Est pt 03/12/2020 12:00:[address] [facility] ([facility]) Telemed Diagnostic Eval 02/20/2020 12:00 :00 AM EST - 02/20/2020 12:00:00 AM EST [facility] ([facility]) Telemed Diagnostic Eval 02/20/2020 12:00:00 AM EST [facility] ([facility]) Extended Individual Psychotherapy - 45 min 02/03/2020 12:00:00 AM EDT - 02/03/2020 12:00:00 AM EDT [facility] ([facility]) Extended Individual Psychotherapy - 45 min 0 12:00:00 AM EDT [facility] ([facility]) Extended Individual Psychotherapy - 45 min 01/20/2020 12:00:00 AM EDT - 01/20/2020 12:00:00 AM EDT [facility] ([facility]) Extended Individual Psychotherapy - 45 min 0 12:00:00 AM EDT [facility] ([facility]) Extended Individual Psychotherapy - 45 min 01/07/2020 12:00:00 AM EDT - 01/07/2020 12:00:00 AM EDT [facility] ([facility]) Extended Individual Psychotherapy - 45 min 0 12:00:00 AM EDT [facility] ([facility]) Results ID Date Data Source [id number] 11/13/2020 10:43:00 AM EDT [facility] Name Value Range Interpretation Code Description Data Rosana rce(s) Supporting Document(s) SARS coronavirus 2 RNA [Presence] in Res piratory specimen by OBIE with probe detection NEGATIVE [facility] This lab was ordered by [facility] a nd reported by [facility]. ID Date Data Source [id number] 05/13/2020 12:00:00 AM EST [facility] Name Value Range Interpretation Code Description Data Rosana rce(s) Supporting Document(s) SARS coronavirus 2 RNA [Presence] in Res piratory specimen by OBIE with probe detection NEGATIVE [facility] This lab was ordered by Ethan Hendrix and reported by [employer]. ID Date Data Source [id number] 05/13/2020 12:00:00 AM EST [facility] Name Value Range Interpretation Code Description Data Rosana rce(s) Supporting Document(s) Carestart Rapid COVID Antigen Test Negative [facility] This lab was reported by Ethan [facility]. Procedure Social History Code Duration Value Status Description Data Source(s ) Smoking 12/07/2020 12:00:00 AM EDT Never Smoker completed Never S neetu eCW1 ([facility]) Smoking 05/14/2020 12:00:00 AM EST Unknown if ever smoked comp leted Unknown if ever smoked [facility] ([facility]) Smoking 03/19/2020 12:00:00 AM EST Unknown if ever smoked comp leted Unknown if ever smoked [facility] ([facility]) Smoking 03/12/2020 12:00:00 AM EST Unknown if ever smoked comp leted Unknown if ever smoked [facility] ([facility]) Smoking 02/20/2020 12:00:00 AM EST Unknown if ever smoked comp leted Unknown if ever smoked [facility] ([facility]) Smoking 02/03/2020 12:00:00 AM EDT Unknown if ever smoked comp leted Unknown if ever smoked [facility] ([facility]) Smoking 01/20/2020 12:00:00 AM EDT Unknown if ever smoked comp leted Unknown if ever smoked [facility] Smoking 01/07/2020 12:00:00 AM EDT Unknown if ever smoked comp leted Unknown if ever smoked [facility]) Vital Signs ID Date Data Source UNK Name Value Range Interpretation Code Description Data Source(s) Body height 0.00 in Normal (applies to non-numeric resu lts) 0.00 in [facility] ([facility]) Body weight Measured 0.00 lbs Normal (applies to n on-numeric results) 0.00 lbs [facility] ([facility]) Body mass index (BMI) [Ratio] 0.00 kg/m2 No rmal (applies to non-numeric results) 0.00 kg/m2 [facility] ([facility]) Systolic blood pressure 0 mm[Hg] Normal (applies t o non-numeric results) 0 mm[Hg] [facility] ([facility]) Diastolic blood pressure 0 mm[Hg] Normal (applies to non-numeric results) 0 mm[Hg] [facility] Body height 0.00 in Normal (applies to non-numeric resu lts) 0.00 in [facility] ([facility]) Body weight Measured 0.00 lbs Normal (applies to n on-numeric results) 0.00 lbs [facility] ([facility]) Body mass index (BMI) [Ratio] 0.00 kg/m2 No rmal (applies to non-numeric results) 0.00 kg/m2 [facility] ([facility]) Systolic blood pressure 0 mm[Hg] Normal (applies t o non-numeric results) 0 mm[Hg] [facility] ([facility]) Diastolic blood pressure 0 mm[Hg] Normal (applies to non-numeric results) 0 mm[Hg] [facility] Patient Treatment Plan of Care Planned Activity Planned Date Details Description Data Source (s) Phenazopyridine hydrochloride 100 MG Oral Tablet [Pyri dium] 11/30/2020 12:00:00 AM EDT eCW1 ([facility]) Acetaminophen 325 MG / Hydrocodone Bitartrate 5 MG Ora l Tablet 11/30/2020 12:00:00 AM EDT eCW1 ([facility]) Oxybutynin chloride 5 MG Oral Tablet 11/30/2020 12:00:00 AM EDT eCW1 ([facility]) Phenazopyridine hydrochloride 100 MG Oral Tablet [Pyri dium] 11/30/2020 12:00:00 AM EDT eCW1 ([facility]) Acetaminophen 325 MG / Hydrocodone Bitartrate 5 MG Ora l Tablet 11/30/2020 12:00:00 AM EDT eCW1 ([facility]) Oxybutynin chloride 5 MG Oral Tablet 11/30/2020 12:00:00 AM EDT eCW1 ([facility]) tramadol hydrochloride 50 MG Oral Tablet 11/15/2020 12:00:00 AM EDT eCW1 ([facility]) tramadol hydrochloride 50 MG Oral Tablet 11/15/2020 12:00:00 AM EDT eCW1 ([facility]) tramadol hydrochloride 50 MG Oral Tablet 11/15/2020 12:00:00 AM EDT eCW1 ([facility]) tramadol hydrochloride 50 MG Oral Tablet 11/15/2020 12:00:00 AM EDT eCW1 ([facility])
--- OUTSIDE RECORDS SUMMARY | 2021-01-23 21:20 | CCD ---
Author Author [facility] Organization [facility] Address Unknown Phone Unavailable Care Team Providers Care Office Employee Name Role Phone Kraig Benavides Unavailable PROBLEMS Type Condition ICD9-CM Code ULF30-[id number] Code Onset Dates Condition S tatus W/U Status Risk SNOMED Code Notes Problem Depression with anxiety F41.8 Active confirmed 695056224 Problem PTSD (post-traumatic stress disorder) F43.10 Ac tive confirmed 57141430 Problem DDD (degenerative disc disease), lumbar M51.36 Active confirmed 62205581 Problem Essential hypertension I10 Active confirmed 62340706 Problem Seasonal allergies J30.2 Active confirmed 4 97004890 Problem H/O renal calculi Z87.442 Active confirmed 4 71742411 Problem Primary osteoarthritis of left knee M17.12 Acti ve confirmed [id number] Problem 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 Active confirmed 275 09474 Problem Right bundle branch block I45.10 Active confirmed 45354917 Problem DDD (degenerative disc disease), cervical M50.30 Active confirmed 14053346 Problem Daytime somnolence R40.0 Active confirmed 1 41736172024 Problem Post-traumatic osteoarthritis of right knee M17.31 Active confirmed 358745944 Problem Retained ureteral stent Z96.0 Active confirmed 722524906 Problem Post-traumatic osteoarthritis of both knees M17.2 Active confirmed 166496506 Problem Microscopic hematuria R31.29 Active confirmed 631318568 Problem Cervical disc disease with myelopathy M50.00 Ac tive confirmed 73939009 Problem Cervical disc disorder with radiculopath y, unspecified cervical region M50.10 Active confirmed 595888035 Problem Mixed hyperlipidemia E78.2 Active confirmed 949878649 ALLERGIES Allergen (clinical drug ingredient) Drug/Non Drug Allergy do cumented on EMR Reaction Allergy Type Onset Date Status Coconuts Anaphylaxis Non Drug Allergy Active ENCOUNTERS from 1988 to 2020-12-01 Encounter Location Date Provider Diagnosis [facility] [address] [phone] [place] [address] Nov, Kraig Benavides Retained ureteral stent Z96.0 IMMUNIZATIONS Vaccine Route Administration Date Status Influenza [...] Education Language: Question Answer Notes Languages spoken: Macedonian Jehovah'S Witness: Question Answer Notes Jehovah'S Witness 33 None Sexual Hx: Question Answer Notes [...] 1 tablet as needed Orally Daily Active traMADol HCl 50 MG 1 tablet as needed Orally ev ted 4 hrs as needed for severe pain for 14 day(s) Pt already received medication. This is just a script since it was a voice order. Thank you. Nov, Active Oxybutynin Chloride 5 MG 1 tablet Orally Twice a day 2020 Active HYDROcodone-Acetaminophen 5-325 MG 1 tablet as needed Orally rosalba ry 6 hrs Nov, Active Pyridium 100 MG 1 tablet Orally Three times a day Nov, Active Multi For Him - as directed Orally A ctive Atorvastatin Calcium 40 MG TAKE ONE TABLET BY MOUTH EVERY DAY for 30 Active Metoprolol Succinate ER 50 MG TAKE ONE TABLET BY MOUTH EVERY DAY for 30 Active Levocetirizine Dihydrochloride 5 MG TAKE ONE TABLET BY MOUTH EVERY EVENING for 30 Active PROCEDURES No Information RESULTS No Results REASON FOR VISIT stent pain MEDICAL (GENERAL) HISTORY Type Description Date Medical [...] Treatment Notes Treatm ent Clinical Notes Nov, Retained ureteral stent (ICD-10 - Z96.0) PLAN OF TREATMENT Medication Medication Name Sig Start Date Stop Date Metoprolol Succinate 50 MG 1 tab Orally Once a day for 30 days Atorvastatin Calcium 40 MG TAKE ONE TABLET BY MOUTH EVERY DAY fo r 30 HYDROcodone-Acetaminophen 5-325 MG 1 tablet as needed Orally every 6 hrs Nov, Metoprolol Succinate ER 50 MG TAKE ONE TABLET BY MOUTH EVERY DAY for 30 traMADol HCl 50 MG 1 tablet as needed Orally ev ted 4 hrs as needed for severe pain for 14 day(s) Nov, Levocetirizine Dihydrochloride 5 MG TAKE ONE TABLET BY MOUTH EVERY EVENING for 30 Oxybutynin Chloride 5 MG 1 tablet Orally Twice a day Nov, Flexeril 10 MG 1 tablet as needed Orally Daily Pyridium 100 MG 1 tablet Orally Three times a day Nov, Next Appt Details Provider Name:Gustavo Cash Shun, 02:00:00 PM, [address], , [place], [address], Insurance Providers Payer Name Payer Address Payer Phone Insured Name Patient Relati onship to Insured Coverage Start Date Coverage End Date [facility] [address] [place] [phone] CHRISTIAN TORRES self
--- OUTSIDE RECORDS SUMMARY | 2021-01-23 21:20 | CCD ---
Author Author [facility] Organization [facility] Address Unknown Phone Unavailable Care Team Providers Care Engineering Technologist Name Role Phone Sujey Ng Unavailable PROBLEMS Type Condition ICD9-CM Code [id number] Code Onset Dates Condition S tatus W/U Status Risk SNOMED Code Notes Problem DDD (degenerative disc disease), lumbar M51.36 Active confirmed 78759349 Problem Depression with anxiety F41.8 Active confirmed 957205210 Problem Seasonal allergies J30.2 Active confirmed 4 96883811 Problem PTSD (post-traumatic stress disorder) F43.10 Ac tive confirmed 99388905 Problem Primary osteoarthritis of left knee M17.12 Acti ve confirmed 861214544200260 Problem Essential hypertension I10 Active confirmed 24167398 Problem Post-traumatic osteoarthritis of right knee M17.31 Active confirmed 572205852 Problem [place]ell disease E80.4 Active confirmed 275 60325 Problem Right bundle branch block I45.10 Active confirmed 66176132 Problem Mixed hyperlipidemia E78.2 Active confirmed 346242082 Problem Post-traumatic osteoarthritis of both knees M17.2 Active confirmed 079816776 Problem Daytime somnolence R40.0 Active confirmed 1 44555952262 Problem H/O renal calculi Z87.442 Active confirmed 4 39204132 Problem DDD (degenerative disc disease), cervical M50.30 Active confirmed 72232328 Problem Microscopic hematuria R31.29 Active confirmed 622276079 Problem Cervical disc disease with myelopathy M50.00 Ac tive confirmed 81059193 Problem Cervical disc disorder with radiculopath y, unspecified cervical region M50.10 Active confirmed 677460066 ALLERGIES Allergen (clinical drug ingredient) Drug/Non Drug Allergy do cumented on EMR Reaction Allergy Type Onset Date Status Coconuts Anaphylaxis Non Drug Allergy Active ENCOUNTERS from 1988 to 2020-11-17 Encounter Location Date Provider Diagnosis [facility] [address] [phone] [place] [address] Nov, Sujey Hernandez IMMUNIZATIONS Vaccine Route Administration [...] Education Language: Question Answer Notes Languages spoken: Nigerian Mandaen: Question Answer Notes Mandaen 33 None Sexual Hx: Question Answer Notes [...] Appt Details Provider Name:Gustavo Hoffmann, 02:00:00 PM, [address], , [place], [address], Insurance Providers Payer Name Payer Address Payer Phone Insured Name Patient Relati onship to Insured Coverage Start Date Coverage End Date [facility] [employer] [facility] [address] [facility] [phone] CHRISTIAN TORRES self
--- OUTSIDE RECORDS SUMMARY | 2021-01-23 21:20 | CCD ---
Author Author [facility] Organization [facility] Address Unknown Phone Unavailable Care Team Providers Care Insurance Adjuster Name Role Phone Gustavo Hoffmann Unavailable PROBLEMS Type Condition ICD9-CM Code [id number] Code Onset Dates Condition S tatus W/U Status Risk SNOMED Code Notes Problem Depression with anxiety F41.8 Active confirmed 832001028 Problem PTSD (post-traumatic stress disorder) F43.10 Ac tive confirmed 89129888 Problem DDD (degenerative disc disease), lumbar M51.36 Active confirmed 05120561 Problem Essential hypertension I10 Active confirmed 32929455 Problem Seasonal allergies J30.2 Active confirmed 4 19952694 Problem H/O renal calculi Z87.442 Active confirmed 4 82948214 Problem Primary osteoarthritis of left knee M17.12 Acti ve confirmed 026987910651035 Problem [place] disease E80.4 Active confirmed 275 20699 Problem Right bundle branch block I45.10 Active confirmed 64849711 Problem DDD (degenerative disc disease), cervical M50.30 Active confirmed 51527366 Problem Daytime somnolence R40.0 Active confirmed 1 89777358736 Problem Post-traumatic osteoarthritis of right knee M17.31 Active confirmed 550135448 Problem Retained ureteral stent Z96.0 Active confirmed 054758581 Problem Post-traumatic osteoarthritis of both knees M17.2 Active confirmed 533730939 Problem Microscopic hematuria R31.29 Active confirmed 091982018 Problem Cervical disc disease with myelopathy M50.00 Ac tive confirmed 39778830 Problem Cervical disc disorder with radiculopath y, unspecified cervical region M50.10 Active confirmed 460767345 Problem Mixed hyperlipidemia E78.2 Active confirmed 370276535 ALLERGIES Allergen (clinical drug ingredient) Drug/Non Drug Allergy do cumented on EMR Reaction Allergy Type Onset Date Status Coconuts Anaphylaxis Non Drug Allergy Active ENCOUNTERS from 1988 to 2020-12-02 Encounter Location Date Provider Diagnosis [facility] [address] [phone] [place] [address] Nov, Gustavo Hoffmann IMMUNIZATIONS Vaccine Route Administration Date Status Influenza [...] Education Language: Question Answer Notes Languages spoken: [place] Tenriism: Question Answer Notes Tenriism 33 None Sexual Hx: Question Answer Notes [...] Information RESULTS No Results REASON FOR VISIT 12/07/2020 appt MEDICAL (GENERAL) HISTORY Type Description Date Medical [...] Details Provider Name:Gustavo Cash Shun, 02:00:00 PM, [address], , [place], [address], Insurance Providers Payer Name Payer Address Payer Phone Insured Name Patient Relati onship to Insured Coverage Start Date Coverage End Date [facility] [address] [facility] [phone] CHRISTIAN TORRES self
--- NOTE | 2021-01-24 05:31 | ECGEPIP ---
[facility] - ED Test Date: 2021-01-23 Pat Name: CHRISTIAN TORRES Department: Room: - Gender: Male Seasoner: JJennifer : 1990 Requested By: HERNESTO Vinson Order Number: [id number] Reading MD: Berhane Vaughn Measurements Intervals [place] Rate: 68 P: 38 CT: 160 QRS: 55 QRSD: 108 T: 22 QT: 374 QTc: 397 Interpretive Statements Normal sinus rhythm SIMILAR TO 03/19/19 Electronically Signed on 01-24-2021 5:31:20 EDT by Berhane Vaughn
[2021-01-24] MEDS ORDERED: KETOROLAC 30 MG/ML 1ML VIAL IV ONE (06:55)
[2021-01-24] MEDS ORDERED: METOCLOPRAMIDE INJ 10MG/2ML VIAL (J2765 PER 1) IV ONE (06:55)
[2021-01-24] MEDS ORDERED: NS 1,000 ML IV ONE (06:55)
[2021-01-24] MEDS ORDERED: diphenhydrAMINE 50MG/ML VIAL (J1200) IV STA (06:55)
[2021-01-24 07:37] LABS: BASO # 0.1 10^3/uL (0.0-0.2); BASO % 0.6 % (0.0-1.0); EOS # 0.3 10^3/uL (0.0-0.5); EOS % 3.2 % (0.0-3.0); HEMATOCRIT 44.9 % (42.0-52.0); HEMOGLOBIN 15.5 g/dl (13.5-17.5); LYMPH # 3.1 10^3/uL (1.5-5.0); LYMPH % 39.4 % (24.0-44.0); MEAN CORPUSCULAR HEMOGLOBIN 31.5 pg (27.0-33.0); MEAN CORPUSCULAR HGB CONC 34.5 g/dl (32.0-36.5); MEAN CORPUSCULAR VOLUME 91.3 fl (80.0-96.0); MONO # 0.6 10^3/uL (0.0-0.8); MONO % 7.1 % (2.0-8.0); NEUTROPHILS # 3.9 10^3/uL (1.5-8.5); NEUTROPHILS % 49.6 % (36.0-66.0); PLATELET COUNT, AUTOMATED 250 10^3/uL (150-450); RED BLOOD COUNT 4.92 10^6/uL (4.30-6.10); WHITE BLOOD COUNT 7.8 10^3/uL (4.0-10.0)
--- OUTSIDE RECORDS SUMMARY | 2021-01-24 07:41 | CCD ---
Author Author [facility] Address Unknown Phone Unavailable Care Team Providers Care On Site Waste[employer] Technician Name Role Phone Ruthie Patel NP Unavailable Unavailable Ruthie Patel NP Unavailable Unavailable Ruthie aPtel NP Unavailable Unavailable J Carlos LUTZ NP Unavailable Unavailable J Carlos LUTZ NP Unavailable Unavailable J Carlos LUTZ NP Unavailable Unavailable J Carlos LUTZ NP Unavailable Unavailable J Carlos LUTZ NP Unavailable Unavailable J Carlos LUTZ NP Unavailable Unavailable J Carlos LUTZ NP Unavailable Unavailable LAROCK, J KHALIDA STOCK ROOM MANAGER Unavailable Unavailable LAROCK, J Carlos GAXIOLA STOCK ROOM MANAGER Unavailable Unavailable LAROCK, J Carlos GAXIOLA STOCK ROOM MANAGER Unavailable Unavailable LAROCK, J Carlos GAXIOLA STOCK ROOM MANAGER Unavailable Unavailable LAROCK, J Carlos GAXIOLA STOCK ROOM MANAGER Unavailable Unavailable LAROCK, J Carlos GAXIOLA STOCK ROOM MANAGER Unavailable Unavailable LAROCK, J Carlos GAXIOLA STOCK ROOM MANAGER Unavailable Unavailable LAROCK, J Carlos GAXIOLA STOCK ROOM MANAGER Unavailable Unavailable LAROCK, J Carlos GAXIOLA STOCK ROOM MANAGER Unavailable Unavailable LAROCK, J Carlos GAXIOLA STOCK ROOM MANAGER Unavailable Unavailable LAROCK, J Carlos GAXIOLA STOCK ROOM MANAGER Unavailable Unavailable LAROCK, J Carlos GAXIOLA STOCK ROOM MANAGER Unavailable Unavailable LAROCK, J Carlos GAXIOLA STOCK ROOM MANAGER Unavailable Unavailable LAROCK, J Carlos GAXIOLA STOCK ROOM MANAGER Unavailable Unavailable LAROCK, J Carlos GAXIOLA STOCK ROOM MANAGER Unavailable Unavailable Seb, Romeo Unavailable Seb, Romeo [...] is protected by Article 27-F of the [place] Public Health law. If you continue you may have access to information: Regarding HIV / AIDS; Provided by facilities licensed or operated by the [place] Office of Mental Health; or Provided by the [place] [facility] Office for People With Developmental Disabilities. If such information is present, then the following [place] [facility] mandated warning applies: This information has been [...] law may result in a fine or detention sentence or both. A general authorization for the release of medical or other information is NOT sufficient authorization for further disc losure. Family History Family Member Name Family Member Gender Family Member Status Date o f Status Description Data Source(s) Unknown Unknown Problem [facility] ([facility]) Encounters Encounter Providers Location Date Indications Data Source(s ) (Cyst[facility]) Urology [address] [place] [address] 12/07/2020 12:00:00 AM EDT eCW1 ([facility]) [place] [address] [facility] [address] 12/02/2020 12:00:00 AM EDT eCW1 (Critical access hospital) [place] [address] [facility] [address] 11/30/2020 12:00:00 AM EDT eCW1 (Critical access hospital) [place] [address] [facility] [address] 11/15/2020 12:00:00 AM EDT eCW1 (Critical access hospital) Unknown [address] [facility] [address] 11/15/2020 12:00:00 AM EDT eCW1 (Critical access hospital) Extended Individual Psychotherapy - 45 min Attender: Denver armstrong [facility] 05/14/2020 03:00:00 AM EST - 05/14/2020 03:00:00 AM EST [facility] ([facility]) Attender: Romeo Grigsby 05/14/2020 12:00:00 AM EST [facility] ([facility]) Outpatient Attender: KHALIDA LUTZ NP 07/2020 02:24:29 PM EST - 05/13/2020 03:28:05 PM EST [facility] ([facility] ) Extended Individual Psychotherapy - 45 min Attender: Denver Grigsby [facility] 03/19/2020 09:00:00 AM EST - 03/19/2020 09:00:00 AM EST [facility] ([facility]) Attender: Romeo Grigsby 03/19/2020 12:00:00 AM EST [facility] ([facility]) Outpatient Attender: Curtis Patel NP [facility] 03/12/2020 08:00:00 AM EST - 03/12/2020 08:00:00 AM EST [facility] ([facility]) Attender: Curtis Patel NP 03/12/2020 12:00:00 AM EST [facility] ([facility]) Telemed Diagnostic Eval Attender: Curtis Patel NP [facility] 02/20/2020 08:00:00 AM EST - 02/20/2020 08:00:00 AM EST [facility] ([facility]) Attender: Curtis Patel NP 02/20/2020 12:00:00 AM EST [facility] ([facility]) Extended Individual Psychotherapy - 45 min Attender: Denver armstrong [facility] 02/03/2020 12:00:00 PM EDT - 02/03/2020 12:00:00 PM EDT [facility] ([facility]) Attender: Romeo Grigsby 02/03/2020 12:00:00 AM EDT [facility] ([facility]) Extended Individual Psychotherapy - 45 min Attender: Denver armstrong [facility] 01/20/2020 11:00:00 AM EDT - 01/20/2020 11:00:00 AM EDT [facility] ([facility]) Attender: Romeo Grigsby 01/20/2020 12:00:00 AM EDT [facility] ([facility]) Attender: ORGANIZATION NPI ALIASES * 01/07/2020 12:00:00 AM EDT [facility] ([facility]) Extended Individual Psychotherapy - 45 min Attender: ORGANIZATION NPI ALIASES [facility] 01/06/2020 12:00:00 PM EDT - 01/06/2020 12:00:00 PM EDT [facility] ([facility]) Functional Status Medications Medication Brand Name Start Date Product Form Dose Route Admi nistrative Instructions Pharmacy Instructions Status Indications Reaction Description Data Source(s) Oxybutynin chloride 5 MG Oral Tablet Oxybutynin Chlori de 5 MG Oxybutynin Chloride 5 MG 11/30/2020 12:00:00 AM EDT 1.0 {tablet} active Oxybutynin Chloride 5 MG eCW1 ([facility]) Acetaminophen 325 MG / Hydrocodone Amita trate 5 MG Oral Tablet HYDROcodone- Acetaminophen 5-325 MG HYDROcodone-Acetaminophen 5-325 MG 11/30/2020 12:00:00 AM EDT 1.0 {tablet_as_needed} active HYDROcodone-Acetaminophen 5-325 MG eCW1 ([facility]) Oxybutynin chloride 5 MG Oral Tablet Oxybutynin Chlori de 5 MG Oxybutynin Chloride 5 MG 11/30/2020 12:00:00 AM EDT 1.0 {tablet} active Oxybutynin Chloride 5 MG eCW1 ([facility]) Acetaminophen 325 MG / Hydrocodone Amita trate 5 MG Oral Tablet HYDROcodone- Acetaminophen 5-325 MG HYDROcodone-Acetaminophen 5-325 MG 11/30/2020 12:00:00 AM EDT 1.0 {tablet_as_needed} active HYDROcodone-Acetaminophen 5-325 MG eCW1 ([facility]) Phenazopyridine hydrochloride 100 MG Oral Tablet [Pyri dium] Pyridium 100 MG Pyridium 100 MG 11/30/2020 12:00:00 AM EDT 1.0 {tablet} active Pyridium 100 MG eCW1 ([facility]) Oxybutynin chloride 5 MG Oral Tablet Oxybutynin Chlori de 5 MG Oxybutynin Chloride 5 MG 11/30/2020 12:00:00 AM EDT 1.0 {tablet} active Oxybutynin Chloride 5 MG eCW1 ([facility]) Acetaminophen 325 MG / Hydrocodone Amita trate 5 MG Oral Tablet HYDROcodone- Acetaminophen 5-325 MG HYDROcodone-Acetaminophen 5-325 MG 11/30/2020 12:00:00 AM EDT 1.0 {tablet_as_needed} active HYDROcodone-Acetaminophen 5-325 MG eCW1 ([facility]) Phenazopyridine hydrochloride 100 MG Oral Tablet [Pyri dium] Pyridium 100 MG Pyridium 100 MG 11/30/2020 12:00:00 AM EDT 1.0 {tablet} active Pyridium 100 MG eCW1 ([facility]) Phenazopyridine hydrochloride 100 MG Oral Tablet [Pyri dium] Pyridium 100 MG Pyridium 100 MG 11/30/2020 12:00:00 AM EDT 1.0 {tablet} active Pyridium 100 MG eCW1 ([facility]) tramadol hydrochloride 50 MG Oral Tablet traMADol HCl 50 MG traMADol HCl 50 MG 11/15/2020 12:00:00 AM EDT 1.0 {tablet_as_needed} active traMADol HCl 50 MG eCW1 ([facility]) tramadol hydrochloride 50 MG Oral Tablet traMADol HCl 50 MG traMADol HCl 50 MG 11/15/2020 12:00:00 AM EDT 1.0 {tablet_as_needed} active traMADol HCl 50 MG eCW1 ([facility]) tramadol hydrochloride 50 MG Oral Tablet traMADol HCl 50 MG traMADol HCl 50 MG 11/15/2020 12:00:00 AM EDT 1.0 {tablet_as_needed} active traMADol HCl 50 MG eCW1 ([facility]) tramadol hydrochloride 50 MG Oral Tablet traMADol HCl 50 MG traMADol HCl 50 MG 11/15/2020 12:00:00 AM EDT 1.0 {tablet_as_needed} active traMADol HCl 50 MG eCW1 ([facility]) tramadol hydrochloride 50 MG Oral Tablet traMADol HCl 50 MG traMADol HCl 50 MG 11/15/2020 12:00:00 AM EDT 1.0 {tablet_as_needed} active traMADol HCl 50 MG eCW1 ([facility]) 50 mg 03/19/2020 12:00:00 AM EST tablet [...] 10 mg by mouth completed <td ID="Medic ationRxNorm_1">342747</td><td ID="MedicationMedication_1">buspirone</td><td ID="MedicationRoute_1">by mouth</td><td ID="MedicationRouteConcept_1">W00055</td><td ID="MedicationStartDate_1">03/12/2020</td><td ID="MedicationStopDate_1">06/10/2020</td><td ID="MedicationDosageFrequency_1">twice a day</td><td ID="MedicationDuration_1">30</td><td ID="MedicationFormulaStrength_1">10 mg</td><td ID="MedicationDosageForm_1">tablet</td><td ID="MedicationDosageFormCode_1"></td><td ID="MedicationDosageDescription_1"></td><td ID="MedicationMedicationId_1">[id number]</td><td ID="MedicationAccount_1">[id number]</td><td ID="MedicationNpid_1">[id number]</td><td ID="MedicationAuthorFirstName_1">Curtis</td><td ID="MedicationAuthorLastName_1">Patel</td><td ID="MedicationTaxonomyCode_1">[id number]</td><td ID="MedicationTaxonomyDesc_1">Nurse Practitioner</td><td ID="MedicationPhoneNumber_1">[phone]</td> [facility]) Sertraline 100 MG Oral Tablet sertraline 03/12/2020 12:00:00 AM EST 100 mg by mouth completed <td ID="Medica tionRxNorm_2">[id number]</td><td ID="MedicationMedication_2">sertraline</td><td ID="MedicationRoute_2">by mouth</td><td ID="MedicationRouteConcept_2">I55402</td><td ID="MedicationStartDate_2">03/12/2020</td><td ID="MedicationStopDate_2">06/10/2020</td><td ID="MedicationDosageFrequency_2">once a day</td><td ID="MedicationDuration_2">30</td><td ID="MedicationFormulaStrength_2">100 mg</td><td ID="MedicationDosageForm_2">tablet</td><td ID="MedicationDosageFormCode_2"></td><td ID="MedicationDosageDescription_2"></td><td ID="MedicationMedicationId_2">[id number]</td><td ID="MedicationAccount_2">[id number]</td><td ID="MedicationNpid_2">[id number]</td><td ID="MedicationAuthorFirstName_2">Curtis</td><td ID="MedicationAuthorLastName_2">Patel</td><td ID="MedicationTaxonomyCode_2">[id number]</td><td ID="MedicationTaxonomyDesc_2">Nurse Practitioner</td><td ID="MedicationPhoneNumber_2">[phone]</td> [facility] ([facility]) buspirone hydrochloride 10 MG Oral [...] Information [facility] Veterans Choice Program VACAA F [id number] SELF [id number] Choice Benefits F [id number] SELF [id number] [employer] [id number] Self [id number] [facility] O [id number] S [id number] [facility] [id number] SP [id number] OTHER WORKERS COMPENSATION [id number] SP [id number] [facility] [id number] SP [id number] OTHER WORKERS COMPENSATION [id number] SP [id number] [facility]) O [id number] S [id number] 'S ADMINISTRATION [id number] SP [id number] MEDICAID [id number] SP [id number] ANSI-Commercial [id number] ANSI-Commercial [id number] ANSI-Commercial [id number] ANSI-Medicaid [id number] ANSI-Commercial [id number] ANSI-Commercial [id number] ANSI-Commercial [id number] ANSI-Medicaid [id number] ANSI-Commercial [id number] ANSI-Medicaid [id number] ANSI-Commercial [id number] ANSI-Commercial [id number] [facility] Health Maintenance Organization [place] [id number] Self [id number] ANSI-Commercial [id number] ANSI-Medicaid [id number] ANSI-Commercial [id number] ANSI-Commercial [id number] ANSI-Medicaid [id number] ANSI-Commercial [id number] ANSI-Commercial [id number] ANSI-Commercial [id number] 'S ADMINISTRATION [id number] SP [id number] O UNAVAILABLE UNAVAILA BLE FIRST [employer] RISK MANAGE O [id number] C [id number] ANSI-Commercial [id number] ANSI-[employer] [id number] ANSIKiwi [id number] [facility] [id number] SP [id number] FIRST NIAGARA RISK MGMT [id number] SP [id number] [facility] [id number] SP [id number] O [id number] S [id number] Choice Benefits F [id number] SELF [id number] AMOS O [id number] S [id number] [facility] [id number] SP [id number] SELF PAY UNAVAILABLE SP UNAVAILA BLE [facility] PLAN [facility] [id number] SP [id number] [facility]) O [id number] S [id number] Problems, Conditions, and Diagnoses Code Display Name Description Problem Type Effective Dates Data Source(s) N20.1 Ureteral stone Ureteral stone Problem 12/07/2020 12:00: 00 AM EDT eCW1 ([facility]) Z96.0 [id number] Retained ureteral stent Problem 11/30/2020 1 2:00:00 AM EDT eCW1 ([facility]) F41.9 Anxiety disorder, unspecified Unspecified Anxiety Diso rder Condition 05/14/2020 12:00:00 AM EST [facility] ([facility]) F43.12 Post-traumatic stress disorder, chronic Post-traumatic stress disorder, chronic Condition 05/14/2020 12:00:00 AM EST [facility] ([facility]) F32.9 Major depressive disorder, single episod e, unspecified Unspecified depressive Disorder Condition 05/14/2020 12:00:00 AM EST [facility] ([facility]) F32.9 Major depressive disorder, single episod e, unspecified Unspecified depressive Disorder Condition 02/03/2020 12:00:00 AM EDT [facility] ([facility]) F39. Unspecified mood [affective] disorder Un specified mood [affective] disorder Condition 02/03/2020 12:00:00 AM EDT [facility] ([facility]) Surgeries/Procedures Procedure Description Date Indications Data Source(s) TOBACCO USE ASSESSED 12/07/2020 12:00:00 AM EDT eCW1 ([facility]) Med: Lidocaine Jelly 2% 6ml Intravesically (Glydo) 12/07/2020 12:00:00 AM EDT eCW1 ([facility]) Extended Individual Psychotherapy - 45 min 05/14/2020 12:00:00 AM EST - 05/14/2020 12:00:00 AM EST [facility] ([facility]) Extended Individual Psychotherapy - 45 min 1 12:00:00 AM EST [facility] ([facility]) Extended Individual Psychotherapy - 45 min 03/19/2020 12:00:00 AM EST - 03/19/2020 12:00:00 AM EST [facility] ([facility]) Extended Individual Psychotherapy - 45 min 0 12:00:00 AM EST [facility] ([facility]) MHC Telemed E/M Lvl 3--Est pt 03/12/2020 12:00:00 AM EST - 03/12/2020 12:00:00 AM EST [facility] ([facility]) Telemed A/O 30" 03/12/2020 12:00:00 AM EST [facility] ([facility]) MHC Telemed E/M Lvl 3--Est pt 03/12/2020 12:00:[address] [facility] ([facility]) Telemed Diagnostic Eval 02/20/2020 12:00 :00 AM EST - 02/20/2020 12:00:00 AM EST [facility] ([facility]) Telemed Diagnostic Eval 02/20/2020 12:00:00 AM EST [facility] ([facility]) Extended Individual Psychotherapy - 45 min 02/03/2020 12:00:00 AM EDT - 02/03/2020 12:00:00 AM EDT [facility] ([facility]) Extended Individual Psychotherapy - 45 min 0 12:00:00 AM EDT [facility] ([facility]) Extended Individual Psychotherapy - 45 min 01/20/2020 12:00:00 AM EDT - 01/20/2020 12:00:00 AM EDT [facility] ([facility]) Extended Individual Psychotherapy - 45 min 0 12:00:00 AM EDT [facility] ([facility]) Extended Individual Psychotherapy - 45 min 01/07/2020 12:00:00 AM EDT - 01/07/2020 12:00:00 AM EDT [facility] ([facility]) Extended Individual Psychotherapy - 45 min 0 12:00:00 AM EDT [facility] ([facility]) Results ID Date Data Source [id number] 11/13/2020 10:43:00 AM EDT [facility] Name Value Range Interpretation Code Description Data Rosana rce(s) Supporting Document(s) SARS coronavirus 2 RNA [Presence] in Res piratory specimen by OBIE with probe detection NEGATIVE [facility] This lab was ordered by [facility] a nd reported by [facility]. ID Date Data Source [id number] 05/13/2020 12:00:00 AM EST [facility] Name Value Range Interpretation Code Description Data Rosana rce(s) Supporting Document(s) SARS coronavirus 2 RNA [Presence] in Res piratory specimen by OBIE with probe detection NEGATIVE [facility] This lab was ordered by [facility] and reported by [employer]. ID Date Data Source [id number] 05/13/2020 12:00:00 AM EST [facility] Name Value Range Interpretation Code Description Data Rosana rce(s) Supporting Document(s) Carestart Rapid COVID Antigen Test Negative [facility] This lab was reported by Ethan [facility]. Procedure Social History Code Duration Value Status Description Data Source(s ) Smoking 12/07/2020 12:00:00 AM EDT Never Smoker completed Never S neetu eCW1 ([facility]) Smoking 05/14/2020 12:00:00 AM EST Unknown if ever smoked comp leted Unknown if ever smoked [facility] ([facility]) Smoking 03/19/2020 12:00:00 AM EST Unknown if ever smoked comp leted Unknown if ever smoked [facility] ([facility]) Smoking 03/12/2020 12:00:00 AM EST Unknown if ever smoked comp leted Unknown if ever smoked [facility] ([facility]) Smoking 02/20/2020 12:00:00 AM EST Unknown if ever smoked comp leted Unknown if ever smoked [facility] ([facility]) Smoking 02/03/2020 12:00:00 AM EDT Unknown if ever smoked comp leted Unknown if ever smoked [facility] ([facility]) Smoking 01/20/2020 12:00:00 AM EDT Unknown if ever smoked comp leted Unknown if ever smoked [facility]) Smoking 01/07/2020 12:00:00 AM EDT Unknown if ever smoked comp leted Unknown if ever smoked [facility] ([facility]) Vital Signs ID Date Data Source UNK Name Value Range Interpretation Code Description Data Source(s) Body height 0.00 in Normal (applies to non-numeric resu lts) 0.00 in [facility] ([facility]) Body weight Measured 0.00 lbs Normal (applies to n on-numeric results) 0.00 lbs [facility] ([facility]) Body mass index (BMI) [Ratio] 0.00 kg/m2 No rmal (applies to non-numeric results) 0.00 kg/m2 [facility] ([facility]) Systolic blood pressure 0 mm[Hg] Normal (applies t o non-numeric results) 0 mm[Hg] [facility] ([facility]) Diastolic blood pressure 0 mm[Hg] Normal (applies to non-numeric results) 0 mm[Hg] [facility] ([facility]) Body height 0.00 in Normal (applies to non-numeric resu lts) 0.00 in [facility] ([facility]) Body weight Measured 0.00 lbs Normal (applies to n on-numeric results) 0.00 lbs [facility] ([facility]) Body mass index (BMI) [Ratio] 0.00 kg/m2 No rmal (applies to non-numeric results) 0.00 kg/m2 [facility] ([facility]) Systolic blood pressure 0 mm[Hg] Normal (applies t o non-numeric results) 0 mm[Hg] [facility] ([facility]) Diastolic blood pressure 0 mm[Hg] Normal (applies to non-numeric results) 0 mm[Hg] [facility]) Patient Treatment Plan of Care Planned Activity Planned Date Details Description Data Source (s) Phenazopyridine hydrochloride 100 MG Oral Tablet [Pyri dium] 11/30/2020 12:00:00 AM EDT eCW1 ([facility]) Acetaminophen 325 MG / Hydrocodone Bitartrate 5 MG Ora l Tablet 11/30/2020 12:00:00 AM EDT eCW1 ([facility]) Oxybutynin chloride 5 MG Oral Tablet 11/30/2020 12:00:00 AM EDT eCW1 ([facility]) Phenazopyridine hydrochloride 100 MG Oral Tablet [Pyri dium] 11/30/2020 12:00:00 AM EDT eCW1 ([facility]) Acetaminophen 325 MG / Hydrocodone Bitartrate 5 MG Ora l Tablet 11/30/2020 12:00:00 AM EDT eCW1 ([facility]) Oxybutynin chloride 5 MG Oral Tablet 11/30/2020 12:00:00 AM EDT eCW1 ([facility]) tramadol hydrochloride 50 MG Oral Tablet 11/15/2020 12:00:00 AM EDT eCW1 ([facility]) tramadol hydrochloride 50 MG Oral Tablet 11/15/2020 12:00:00 AM EDT eCW1 ([facility]) tramadol hydrochloride 50 MG Oral Tablet 11/15/2020 12:00:00 AM EDT eCW1 ([facility]) tramadol hydrochloride 50 MG Oral Tablet 11/15/2020 12:00:00 AM EDT eCW1 ([facility])
[2021-01-24 07:57] LABS: ERYTHROCYTE SEDIMENTATION RATE 5 mm/hr (0-15)
[2021-01-24 08:10] LABS: CK-MB VALUE MASS 2.1 NG/ML (<3.6); CPK CREATINE PHOSPHOKINASE 143 U/L (39-308); MB/CK RELATIVE INDEX 1.47 (< OR =4); TROPONIN I < 0.02 NG/ML (< 0.10)
--- NOTE | 2021-01-24 08:13 | REP ---
INDICATION: SOB, CP COMPARISON: 03/19/2019 TECHNIQUE: Portable AP view of the chest FINDINGS: The mediastinum and cardiac silhouette are stable and within normal limits for portable technique. The lung cho are clear without acute consolidation, effusion, or pneumothorax. Skeletal structures are intact. IMPRESSION: No acute cardiopulmonary process appreciated. <Electronically signed by Miguel Angel Jesus > 01/24/21 [id number]
[2021-01-24 08:17] LABS: RSV AMPLIFICATION NEGATIVE (NEGATIVE)
[2021-01-24 08:28] VITALS: O2SAT 99
[2021-01-24] MEDS ORDERED: NAPR-837 PO (08:49)
[2021-01-24] MEDS ORDERED: ASPE4PAD TOP (08:49)
[2021-01-24 09:00] VITALS: BP 111/65
== END 2021-01-24 09:17 | disposition home or self-care (01) ==
LOC: M ED 21:13
DX: R07.89 Other chest pain (principal); M54.9 Dorsalgia, unspecified; R51.9 Headache, unspecified; R06.02 Shortness of breath; Z91.018 Allergy to other foods
CPT/HCPCS: 71045; 80047; 82550; 82553; 85025; 85379; 85652; 87631; 93005; 96361; 96374; 96375; 99284; J1200; J1885; J2765

== ENCOUNTER 2021-04-08 10:19 | Emergency (ER) | payer OTHER ==
[~2021-04-08] VITALS: Ht 170.2 cm; Wt 88.2 kg
[~2021-04-08 10:19] MED LIST changes: +ASPE4PAD TOP
[2021-04-08] MEDS ORDERED: BENZ200C70 PO (11:45)
[2021-04-08] MEDS ORDERED: AUGM875T28 PO (11:45)
[2021-04-08 11:50] VITALS: BP 136/87
== END 2021-04-08 12:06 | disposition home or self-care (01) ==
LOC: M ED 10:19
DX: J06.9 Acute upper respiratory infection, unspecified (principal); J32.9 Chronic sinusitis, unspecified; I10 Essential (primary) hypertension; E78.5 Hyperlipidemia, unspecified; Z91.018 Allergy to other foods
CPT/HCPCS: 99283; U0003

== ENCOUNTER 2021-10-03 01:48 | Emergency (ER) | payer OTHER ==
[~2021-10-03] VITALS: Ht 170.2 cm; Wt 93.2 kg
[~2021-10-03 01:48] MED LIST changes: +AUGM875T28 PO; +BENZ200C70 PO
[2021-10-03 06:01] VITALS: BP 134/86
[2021-10-03] MEDS ORDERED: ACETAMINOPHEN 325 MG TAB PO ONE (06:20)
== END 2021-10-03 06:46 | disposition home or self-care (01) ==
LOC: M ED 01:48
DX: M25.512 Pain in left shoulder (principal); E78.5 Hyperlipidemia, unspecified; Z87.442 Personal history of urinary calculi; Z91.018 Allergy to other foods

== ENCOUNTER → 2022-05-05 | Outpatient (REF) | payer OTHER | LOC: M LAB REF 12:42 | PROVIDERS: ATTEND Physician Assistant Medical | DX: R50.9 Fever, unspecified (principal) ==

== ENCOUNTER 2022-07-02 20:23 | Emergency (ER) | payer OTHER ==
[~2022-07-02] VITALS: Ht 170.2 cm; Wt 96.8 kg
[2022-07-02 21:15] LABS: BASO % 0.5 % (0.0-1.0); EOS # 0.1 10^3/uL (0.0-0.5); HEMATOCRIT 44.2 % (42.0-52.0); HEMOGLOBIN 15.4 g/dl (13.5-17.5); LYMPH # 3.2 10^3/uL (1.5-5.0); MEAN CORPUSCULAR HEMOGLOBIN 31.8 pg (27.0-33.0); MEAN CORPUSCULAR HGB CONC 34.8 g/dl (32.0-36.5); MEAN CORPUSCULAR VOLUME 91.3 fl (80.0-96.0); MONO # 0.5 10^3/uL (0.0-0.8); MONO % 5.7 % (2.0-8.0); NEUTROPHILS # 4.6 10^3/uL (1.5-8.5); NEUTROPHILS % 54.6 % (36.0-66.0); PLATELET COUNT, AUTOMATED 265 10^3/uL (150-450); RED BLOOD COUNT 4.84 10^6/uL (4.30-6.10); WHITE BLOOD COUNT 8.4 10^3/uL (4.0-10.0)
[2022-07-02] MEDS ORDERED: KETOROLAC 30 MG/ML 1ML VIAL IV ONE (21:40)
[2022-07-02] MEDS ORDERED: NS 1,000 ML IV ONE (21:40)
[2022-07-02 21:47] LABS: ALBUMIN 3.8 G/DL (3.2-5.2); BILIRUBIN,DIRECT 0.4 MG/DL (<0.4)
[2022-07-02 21:48] LABS: TOTAL PROTEIN 6.5 G/DL (5.7-8.2)
[2022-07-02] MEDS ORDERED: FLOM0.4C39 PO (22:38)
[2022-07-02 22:44] VITALS: BP 137/84
== END 2022-07-02 22:54 | disposition home or self-care (01) ==
LOC: M ED 20:23
DX: R31.9 Hematuria, unspecified (principal); N28.1 Cyst of kidney, acquired; I10 Essential (primary) hypertension; E78.5 Hyperlipidemia, unspecified; F43.10 Post-traumatic stress disorder, unspecified; Z87.442 Personal history of urinary calculi; E80.4 Gilbert syndrome; I45.10 Unspecified right bundle-branch block
CPT/HCPCS: 74176; 80047; 80076; 81001; 83690; 85025; 96374; 99284; J1885

== ENCOUNTER 2023-01-15 09:58 | Emergency (ER) | payer OTHER ==
[~2023-01-15] VITALS: Ht 170.2 cm; Wt 100.3 kg
[2023-01-15 10:36] LABS: BASO # 0.1 10^3/uL (0.0-0.2); BASO % 0.9 % (0.0-1.0); EOS # 0.1 10^3/uL (0.0-0.5); EOS % 1.4 % (0.0-3.0); HEMATOCRIT 45.4 % (42.0-52.0); HEMOGLOBIN 16.1 g/dl (13.5-17.5); LYMPH # 3.1 10^3/uL (1.5-5.0); LYMPH % 40.5 % (24.0-44.0); MEAN CORPUSCULAR HEMOGLOBIN 31.9 pg (27.0-33.0); MEAN CORPUSCULAR HGB CONC 35.5 g/dl (32.0-36.5); MEAN CORPUSCULAR VOLUME 89.9 fl (80.0-96.0); MONO # 0.5 10^3/uL (0.0-0.8); MONO % 6.3 % (2.0-8.0); NEUTROPHILS # 3.9 10^3/uL (1.5-8.5); NEUTROPHILS % 50.6 % (36.0-66.0); PLATELET COUNT, AUTOMATED 274 10^3/uL (150-450); RED BLOOD COUNT 5.05 10^6/uL (4.30-6.10); WHITE BLOOD COUNT 7.7 10^3/uL (4.0-10.0)
[2023-01-15 11:01] LABS: BLOOD UREA NITROGEN 15 MG/DL (9-23); CARBON DIOXIDE LEVEL 31 MMOL/L (20-31); CHLORIDE LEVEL 107 MMOL/L (98-107); GLOMERULAR FILTRATION RATE > 60.0 (>60); GLUCOSE, FASTING 98 MG/DL (60-100); SODIUM LEVEL 143 MMOL/L (136-145)
[2023-01-15 11:45] VITALS: BP 137/87; TEMP 97.7; O2SAT 98
== END 2023-01-15 11:51 | disposition home or self-care (01) ==
LOC: M ED 09:58
DX: R10.32 Left lower quadrant pain (principal); I10 Essential (primary) hypertension; E78.5 Hyperlipidemia, unspecified; Z91.018 Allergy to other foods

== ENCOUNTER → 2023-01-15 | Outpatient (REF) ==
[2023-01-17 07:07] LABS: RUBEOLA IgG ANTIBODY 80.8 AU/mL (Immune >16.4)
== END ==
LOC: M LAB 09:46
PROVIDERS: ATTEND Nurse Practitioner Adult Health
DX: Z02.1 Encounter for pre-employment examination (principal)

== ENCOUNTER 2023-01-20 19:26 | Emergency (ER) | payer OTHER ==
[~2023-01-20] VITALS: Ht 170.2 cm; Wt 95.4 kg
[2023-01-20] MEDS ORDERED: NS 1,000 ML IV ONE (22:05)
[2023-01-20] MEDS ORDERED: KETOROLAC 30 MG/ML 1ML VIAL IV ONE (22:05)
[2023-01-20 22:25] LABS: BASO # 0.1 10^3/uL (0.0-0.2); BASO % 0.7 % (0.0-1.0); EOS # 0.2 10^3/uL (0.0-0.5); EOS % 2.7 % (0.0-3.0); HEMATOCRIT 42.2 % (42.0-52.0); HEMOGLOBIN 15.2 g/dl (13.5-17.5); LYMPH # 3.6 10^3/uL (1.5-5.0); LYMPH % 44.2 % (24.0-44.0); MEAN CORPUSCULAR HEMOGLOBIN 32.5 pg (27.0-33.0); MEAN CORPUSCULAR VOLUME 90.2 fl (80.0-96.0); MONO # 0.5 10^3/uL (0.0-0.8); MONO % 6.7 % (2.0-8.0); NEUTROPHILS # 3.7 10^3/uL (1.5-8.5); NEUTROPHILS % 45.6 % (36.0-66.0); PLATELET COUNT, AUTOMATED 256 10^3/uL (150-450); RED BLOOD COUNT 4.68 10^6/uL (4.30-6.10); WHITE BLOOD COUNT 8.1 10^3/uL (4.0-10.0)
[2023-01-20 22:46] LABS: LIPASE 42 U/L (12-53)
[2023-01-20 22:48] LABS: ALBUMIN 3.8 G/DL (3.2-5.2); ALKALINE PHOSPHATASE 82 U/L (46-116); ALT/SGPT 126 U/L (7.0-40); AST/SGOT 59 U/L (<34); BILIRUBIN,DIRECT 0.6 MG/DL (<0.4); BILIRUBIN,TOTAL 2.5 MG/DL (0.3-1.2); BLOOD UREA NITROGEN 13 MG/DL (9-23); CALCIUM LEVEL 8.8 MG/DL (8.5-10.1); CARBON DIOXIDE LEVEL 30 MMOL/L (20-31); CHLORIDE LEVEL 108 MMOL/L (98-107); CREATININE FOR GFR 0.65 MG/DL (0.70-1.30); GLOMERULAR FILTRATION RATE > 60.0 (>60); GLUCOSE, FASTING 107 MG/DL (60-100); POTASSIUM SERUM 3.8 MMOL/L (3.5-5.1); SODIUM LEVEL 144 MMOL/L (136-145); TOTAL PROTEIN 6.7 G/DL (5.7-8.2)
[2023-01-20] MEDS ORDERED: ISOVUE-370 76% 100ML VIAL As Ordered ONE (23:20)
[2023-01-21] MEDS ORDERED: KETO10TAB PO (00:05)
[2023-01-21 00:32] VITALS: BP 166/94; TEMP 98.4; O2SAT 96
== END 2023-01-21 00:35 | disposition home or self-care (01) ==
LOC: M ED 19:26
DX: R31.9 Hematuria, unspecified (principal); E66.9 Obesity, unspecified; I10 Essential (primary) hypertension; E78.5 Hyperlipidemia, unspecified; Z87.442 Personal history of urinary calculi; Z91.018 Allergy to other foods
CPT/HCPCS: 74177; 80048; 80076; 81001; 83690; 85025; 96361; 96374; 99284; J1885; Q9967

== ENCOUNTER → 2023-04-16 | Outpatient (REF) | payer OTHER ==
[~2023-04-16] MED LIST changes: +KETO10TAB PO
== END ==
LOC: M LAB REF 21:45
PROVIDERS: ATTEND Physician Assistant Medical
DX: R50.9 Fever, unspecified (principal)

== ENCOUNTER 2023-05-04 11:44 | Emergency (ER) | payer OTHER ==
[~2023-05-04] VITALS: Ht 170.2 cm; Wt 96.9 kg
[2023-05-04 12:54] LABS: BASO # 0.1 10^3/uL (0.0-0.2); BASO % 0.6 % (0.0-1.0); EOS # 0.1 10^3/uL (0.0-0.5); EOS % 1.3 % (0.0-3.0); HEMATOCRIT 46.2 % (42.0-52.0); LYMPH # 2.8 10^3/uL (1.5-5.0); LYMPH % 35.3 % (24.0-44.0); MEAN CORPUSCULAR HEMOGLOBIN 31.5 pg (27.0-33.0); MEAN CORPUSCULAR HGB CONC 34.6 g/dl (32.0-36.5); MEAN CORPUSCULAR VOLUME 90.9 fl (80.0-96.0); MONO # 0.6 10^3/uL (0.0-0.8); NEUTROPHILS # 4.3 10^3/uL (1.5-8.5); NEUTROPHILS % 54.7 % (36.0-66.0); PLATELET COUNT, AUTOMATED 270 10^3/uL (150-450); RED BLOOD COUNT 5.08 10^6/uL (4.30-6.10); WHITE BLOOD COUNT 7.9 10^3/uL (4.0-10.0)
[2023-05-04 13:22] LABS: BLOOD UREA NITROGEN 18 MG/DL (9-23); CALCIUM LEVEL 8.4 MG/DL (8.5-10.1); CARBON DIOXIDE LEVEL 29 MMOL/L (20-31); CHLORIDE LEVEL 109 MMOL/L (98-107); CREATININE FOR GFR 0.89 MG/DL (0.70-1.30); GLOMERULAR FILTRATION RATE > 60.0 (>60); GLUCOSE, FASTING 84 MG/DL (60-100); SODIUM LEVEL 139 MMOL/L (136-145)
[2023-05-04] MEDS ORDERED: KETOROLAC 30 MG/ML 1ML VIAL IV ONE (14:15)
[2023-05-04] MEDS ORDERED: ONDANSETRON 4MG 2ML VIAL IV ONE (14:15)
[2023-05-04] MEDS ORDERED: IBUP-1022 PO (14:32)
[2023-05-04] MEDS ORDERED: ONDA4TAB6 PO (14:32)
[2023-05-04] MEDS ORDERED: FLOM0.4C39 PO (14:32)
[2023-05-04 15:06] VITALS: BP 123/80; TEMP 97.2; O2SAT 100
== END 2023-05-04 15:09 | disposition home or self-care (01) ==
LOC: M ED 11:44
DX: N20.1 Calculus of ureter (principal)
CPT/HCPCS: 74176; 80048; 81001; 85025; 96374; 96375; 99284; J1885; J2405

== ENCOUNTER → 2023-07-05 | Outpatient (CLI) | payer OTHER ==
[~2023-07-05] MED LIST changes: +ONDA4TAB6 PO
== END ==
LOC: M SOG 07:51
PROVIDERS: ATTEND Orthopaedic Surgery
DX: M25.561 Pain in right knee (principal); M25.562 Pain in left knee

== ENCOUNTER 2023-08-15 14:49 | Emergency (ER) | payer OTHER, SELFPAY ==
[~2023-08-15] VITALS: Ht 170.2 cm; Wt 103.1 kg
[~2023-08-15 14:49] MED LIST changes: +METO200T15 PO; -METO200T28 PO; -ROSU40TA4 PO; +ROSU40TA63 PO
[2023-08-15] MEDS: KETOROLAC 30 MG/ML 1ML VIAL IV ONE (17:32)
[2023-08-15] MEDS: ONDANSETRON 4MG 2ML VIAL IV ONE (17:32)
[2023-08-15 17:38] LABS: BASO # 0.1 10^3/uL (0.0-0.2); BASO % 0.6 % (0.0-1.0); EOS # 0.2 10^3/uL (0.0-0.5); EOS % 1.9 % (0.0-3.0); HEMATOCRIT 43.5 % (42.0-52.0); HEMOGLOBIN 15.8 g/dl (13.5-17.5); LYMPH # 3.6 10^3/uL (1.5-5.0); LYMPH % 42.2 % (24.0-44.0); MEAN CORPUSCULAR HEMOGLOBIN 32.8 pg (27.0-33.0); MEAN CORPUSCULAR HGB CONC 36.3 g/dl (32.0-36.5); MEAN CORPUSCULAR VOLUME 90.2 fl (80.0-96.0); MONO # 0.7 10^3/uL (0.0-0.8); MONO % 7.7 % (2.0-8.0); NEUTROPHILS % 47.1 % (36.0-66.0); PLATELET COUNT, AUTOMATED 277 10^3/uL (150-450); RED BLOOD COUNT 4.82 10^6/uL (4.30-6.10); WHITE BLOOD COUNT 8.5 10^3/uL (4.0-10.0)
[2023-08-15 18:06] LABS: LIPASE 42 U/L (12-53)
[2023-08-15 18:09] LABS: ALBUMIN 3.9 G/DL (3.2-5.2); ALKALINE PHOSPHATASE 87 U/L (46-116); ALT/SGPT 101 U/L (7.0-40); AST/SGOT 55 U/L (<34); BILIRUBIN,DIRECT 0.5 MG/DL (<0.4); BILIRUBIN,TOTAL 2.2 MG/DL (0.3-1.2); BLOOD UREA NITROGEN 16 MG/DL (9-23); CALCIUM LEVEL 9.1 MG/DL (8.5-10.1); CARBON DIOXIDE LEVEL 29 MMOL/L (20-31); CHLORIDE LEVEL 106 MMOL/L (98-107); GLOMERULAR FILTRATION RATE > 60.0 (>60); GLUCOSE, FASTING 85 MG/DL (60-100); POTASSIUM SERUM 4.4 MMOL/L (3.5-5.1); SODIUM LEVEL 140 MMOL/L (136-145); TOTAL PROTEIN 6.7 G/DL (5.7-8.2)
[2023-08-15] MEDS: methocarbamoL 500 MG TAB PO ONE (18:13)
[2023-08-15 18:47] VITALS: BP 134/85; TEMP 97.4; O2SAT 97
[2023-08-15] MEDS ORDERED: IBUP80TA PO (19:12)
== END 2023-08-15 19:35 | disposition home or self-care (01) ==
LOC: M ED 14:49
DX: R10.9 Unspecified abdominal pain (principal); R35.0 Frequency of micturition; I10 Essential (primary) hypertension; E78.5 Hyperlipidemia, unspecified; M54.50 Low back pain, unspecified; Z87.442 Personal history of urinary calculi; Z91.018 Allergy to other foods; Z79.1 Long term (current) use of non-steroidal anti-inflammatories (NSAID); Z79.83 Long term (current) use of bisphosphonates; Z79.899 Other long term (current) drug therapy
CPT/HCPCS: 74176; 80047; 80048; 80076; 81001; 83690; 85025; 96374; 99284; J1885; J2405

== ENCOUNTER → 2023-09-15 | Outpatient (CLI) | payer OTHER ==
[~2023-09-15] MED LIST changes: +IBUP80TA PO; +ONDA-282 PO; -ONDA4TAB6 PO
[2023-09-15 10:38] LABS: HEMATOCRIT 43.9 % (42.0-52.0); HEMOGLOBIN 15.4 g/dl (13.5-17.5); MEAN CORPUSCULAR HGB CONC 35.1 g/dl (32.0-36.5); MEAN CORPUSCULAR VOLUME 91.3 fl (80.0-96.0); PLATELET COUNT, AUTOMATED 272 10^3/uL (150-450); RED BLOOD COUNT 4.81 10^6/uL (4.30-6.10); WHITE BLOOD COUNT 6.7 10^3/uL (4.0-10.0)
[2023-09-15 10:48] LABS: THYROID STIMULATING HORMONE 2.848 uIU/ML (0.55-4.78)
[2023-09-15 10:51] LABS: FREE T4 1.25 NG/DL (0.89-1.76)
[2023-09-15 10:52] LABS: CHOLESTEROL RISK RATIO 6.48 (<5); LDL CHOLESTEROL 109.6 MG/DL (<100); MAGNESIUM LEVEL 1.8 MG/DL (1.8-2.4)
== END ==
LOC: M LAB 08:42
PROVIDERS: ATTEND Nurse Practitioner Psychiatric/Mental Health
DX: F39 Unspecified mood [affective] disorder (principal)

== ENCOUNTER → 2023-09-16 | Outpatient (REF) | payer OTHER ==
[2023-09-16 18:37] LABS: APPEARANCE, URINE CLEAR (CLEAR); BACTERIA, URINE AUTO NEGATIVE (NEGATIVE); BILIRUBIN, URINE AUTO NEGATIVE (NEGATIVE); BLOOD, URINE BLOOD 2+ (NEGATIVE); COLOR, URINE YELLOW (YELLOW); GLUCOSE, URINE (UA) AUTO NEGATIVE (NEGATIVE); KETONE, URINE AUTO NEGATIVE (NEGATIVE); LEUKOCYTE ESTERASE, URINE AUTO NEGATIVE (NEGATIVE); MUCUS, URINE SMALL (NEGATIVE); NITRITE, URINE AUTO NEGATIVE (NEGATIVE); PROTEIN, URINE AUTO 1+ mg/dL (NEGATIVE); RBC, URINE AUTO 16 /HPF (0-3); SPECIFIC GRAVITY URINE AUTO 1.024 (1.002-1.035); SQUAMOUS EPITHELIAL CELL UR AU 0 /HPF (0-6); WBC, URINE AUTO 0 /HPF (0-3)
== END ==
LOC: M LAB REF 17:25
PROVIDERS: ATTEND Physician Assistant Medical
DX: N39.0 Urinary tract infection, site not specified (principal)

== ENCOUNTER → 2023-09-21 | Outpatient (CLI) | payer OTHER | LOC: M RAD 13:02 | PROVIDERS: ATTEND Physician Assistant | DX: M25.572 Pain in left ankle and joints of left foot (principal); M70.972 Unspecified soft tissue disorder related to use, overuse and pressure, left ankle and foot ==

== ENCOUNTER 2023-10-04 07:34 | Day surgery (SDC) | payer OTHER ==
[~2023-10-04] VITALS: Ht 170.2 cm; Wt 101.4 kg
[2023-10-04 09:35] LABS: BASO % 0.4 % (0.0-1.0); EOS % 0.3 % (0.0-3.0); HEMATOCRIT 44.1 % (42.0-52.0); HEMOGLOBIN 15.8 g/dl (13.5-17.5); LYMPH # 1.7 10^3/uL (1.5-5.0); LYMPH % 15.1 % (24.0-44.0); MEAN CORPUSCULAR HEMOGLOBIN 32.1 pg (27.0-33.0); MEAN CORPUSCULAR HGB CONC 35.8 g/dl (32.0-36.5); MEAN CORPUSCULAR VOLUME 89.6 fl (80.0-96.0); MONO # 0.6 10^3/uL (0.0-0.8); MONO % 5.4 % (2.0-8.0); NEUTROPHILS # 8.8 10^3/uL (1.5-8.5); NEUTROPHILS % 78.5 % (36.0-66.0); PLATELET COUNT, AUTOMATED 266 10^3/uL (150-450); RED BLOOD COUNT 4.92 10^6/uL (4.30-6.10); WHITE BLOOD COUNT 11.2 10^3/uL (4.0-10.0)
[2023-10-04 10:01] LABS: LIPASE 35 U/L (12-53)
[2023-10-04 10:03] LABS: ALBUMIN 4.1 G/DL (3.2-5.2); ALKALINE PHOSPHATASE 85 U/L (46-116); ALT/SGPT 60 U/L (7.0-40); AST/SGOT 29 U/L (<34); BILIRUBIN,DIRECT 0.6 MG/DL (<0.4); BILIRUBIN,TOTAL 2.2 MG/DL (0.3-1.2); BLOOD UREA NITROGEN 20 MG/DL (9-23); CARBON DIOXIDE LEVEL 24 MMOL/L (20-31); CHLORIDE LEVEL 109 MMOL/L (98-107); CREATININE FOR GFR 0.92 MG/DL (0.70-1.30); GLOMERULAR FILTRATION RATE > 60.0 (>60); GLUCOSE, FASTING 138 MG/DL (60-100); POTASSIUM SERUM 3.9 MMOL/L (3.5-5.1); SODIUM LEVEL 139 MMOL/L (136-145)
[2023-10-04] MEDS: NS 1,000 ML IV ONE (10:12)
[2023-10-04] MEDS: ONDANSETRON 4MG 2ML VIAL IV ONE (10:12)
[2023-10-04] MEDS: KETOROLAC 30 MG/ML 1ML VIAL IV ONE (10:13)
[2023-10-04] MEDS ORDERED: CLON-412 PO (10:17)
[2023-10-04] MEDS ORDERED: PHEN-501 PO (10:17)
[2023-10-04] MEDS ORDERED: ONDA-282 PO (11:33)
[2023-10-04] MEDS ORDERED: ACET-897 PO (11:33)
[2023-10-04] MEDS ORDERED: IBUP200C28 PO (11:33)
[2023-10-04] MEDS ORDERED: FLOM0.4C39 PO (11:33)
[2023-10-04] MEDS ORDERED: HOME MED LIST COMPLETE! XX SCH (11:35)
[2023-10-04 12:10] LABS: GC DNA AMPLIFICATION NEGATIVE (NEGATIVE)
[2023-10-04 12:28] LABS: Trichomonas vaginalis (AMP) NOT DETECTED (NEGATIVE)
[2023-10-04] MEDS ORDERED: MIDAZOLAM INJ 2MG/2ML VIAL As Ordered ONE (12:33)
[2023-10-04] MEDS ORDERED: ONDANSETRON 4MG 2ML VIAL As Ordered ONE (12:33)
[2023-10-04] MEDS ORDERED: LIDOCAINE 2% 100MG/5ML SDV (FOR ANES.) As Ordered ONE (12:33)
[2023-10-04] MEDS ORDERED: propofoL 200 MG/20 ML VIAL As Ordered ONE (12:33)
[2023-10-04] MEDS ORDERED: fentaNYL 250 MCG/5 ML INJECTION As Ordered ONE (12:33)
[2023-10-04] MEDS ORDERED: ACETAMINOPHEN 1000MG 100ML IV BAG As Ordered ONE (12:34)
[2023-10-04] MEDS ORDERED: ceFAZolin SOD 2 GM in IV 1 EA IV ONE (12:50)
[2023-10-04] MEDS: ceFAZolin 2 GM/D5W 50 ML IV BAG As Ordered ONE (13:12)
[2023-10-04] MEDS: ISOVUE-300 61% 100ML VIAL As Ordered ONE (13:29)
[2023-10-04] MEDS ORDERED: HYDROMORPHONE HCL 0.5 MG/ 0.5 ML SYRINGE IV PRN (13:40)
[2023-10-04] MEDS ORDERED: fentaNYL 100 MCG/2 ML INJECTION IV PRN (13:40)
[2023-10-04] MEDS ORDERED: oxyCODONE 5MG TAB PO PRN (13:40)
[2023-10-04] MEDS ORDERED: ONDANSETRON 4MG 2ML VIAL IV PRN (13:40)
[2023-10-04] MEDS ORDERED: LR 1,000 ML IV SCH (13:40)
[2023-10-04] MEDS ORDERED: OXYB5TAB14 PO (14:22)
[2023-10-04 14:35] VITALS: BP 140/80; TEMP 97.6; O2SAT 98
== END 2023-10-04 15:20 | disposition home or self-care (01) ==
LOC: M ED 07:34 → M SDC 07:35
PROVIDERS: ATTEND Urology
DX: N13.1 Hydronephrosis with ureteral stricture, not elsewhere classified (principal); I10 Essential (primary) hypertension; E78.5 Hyperlipidemia, unspecified; E80.4 Gilbert syndrome; Z87.442 Personal history of urinary calculi; Z91.018 Allergy to other foods
CPT/HCPCS: 52320; 52332; 76000; 80048; 80076; 81000; 81015; 82365; 83690; 85025; 87086; 87661; 87810; 87850; 96374; 96375; 99284; C2617; J0131; J0690; J1100; J1885; J2250; J2405; J3010; Q9967

== ENCOUNTER → 2023-11-13 | Outpatient (REF) | payer OTHER ==
[~2023-11-13] MED LIST changes: +ACET-897 PO; +AMOX875T2 PO; +CLON-412 PO; +DELS1LIQ3 PO; +FLON1SPR NARES; +IBUP200C28 PO; +OXYB5TAB14 PO; +PHEN-501 PO; +PRED20TA PO; +PROA1AER2 INH; +PSEU30TA87 PO
== END ==
LOC: M LAB REF 16:33
PROVIDERS: ATTEND Physician Assistant
DX: J02.9 Acute pharyngitis, unspecified (principal)

== ENCOUNTER 2023-11-16 11:52 | Emergency (ER) | payer OTHER ==
[~2023-11-16] VITALS: Ht 167.6 cm; Wt 96.6 kg
[~2023-11-16 11:52] MED LIST changes: -AMOX875T2 PO; -DELS1LIQ3 PO; -FLON1SPR NARES; -PRED20TA PO; -PROA1AER2 INH; -PSEU30TA87 PO
[2023-11-16 11:54] VITALS: BP 121/74; TEMP 99.6; O2SAT 94
[2023-11-16] MEDS ORDERED: DELS1LIQ3 PO (13:51)
[2023-11-16] MEDS ORDERED: PRED20TA PO (13:51)
[2023-11-16] MEDS ORDERED: FLON1SPR NARES (13:51)
[2023-11-16] MEDS ORDERED: AMOX875T2 PO (13:51)
[2023-11-16] MEDS ORDERED: PSEU30TA87 PO (13:51)
[2023-11-16] MEDS ORDERED: PROA1AER2 INH (13:51)
== END 2023-11-16 14:06 | disposition home or self-care (01) ==
LOC: M ED 11:52
DX: J20.9 Acute bronchitis, unspecified (principal); J01.00 Acute maxillary sinusitis, unspecified; B34.8 Other viral infections of unspecified site; Z91.018 Allergy to other foods

== ENCOUNTER 2024-02-02 18:25 | Emergency (ER) | payer OTHER ==
[~2024-02-02] VITALS: Ht 170.2 cm; Wt 95.5 kg
[~2024-02-02 18:25] MED LIST changes: +AMOX875T2 PO; +DELS1LIQ3 PO; +FLON1SPR NARES; +PRED20TA PO; +PROA1AER2 INH; +PSEU30TA87 PO; -ROSU40TA63 PO; +ROSU40TA81 PO
[2024-02-02 20:00] VITALS: BP 140/91; TEMP 97.9; O2SAT 97
== END 2024-02-02 20:02 | disposition home or self-care (01) ==
LOC: M ED 18:25
DX: M76.61 Achilles tendinitis, right leg (principal); E78.5 Hyperlipidemia, unspecified; F43.10 Post-traumatic stress disorder, unspecified

== ENCOUNTER → 2024-02-18 | Outpatient (REF) | payer OTHER | LOC: M LAB REF 12:24 | PROVIDERS: ATTEND Physician Assistant | DX: B34.9 Viral infection, unspecified (principal) ==

== ENCOUNTER 2024-02-28 15:29 | Emergency (ER) | payer OTHER ==
[~2024-02-28] VITALS: Ht 170.2 cm; Wt 102.4 kg
[2024-02-28 18:22] VITALS: BP 142/82; TEMP 100.3; O2SAT 97
[2024-02-28] MEDS ORDERED: DOXY100C82 PO (18:46)
[2024-02-28] MEDS ORDERED: VENTAER INH (18:46)
[2024-02-28] MEDS ORDERED: BREAMIS10 MC (18:48)
== END 2024-02-28 19:01 | disposition home or self-care (01) ==
LOC: M ED 15:29
DX: J18.9 Pneumonia, unspecified organism (principal); I10 Essential (primary) hypertension; E78.5 Hyperlipidemia, unspecified; J45.909 Unspecified asthma, uncomplicated; Z91.018 Allergy to other foods

== ENCOUNTER → 2024-11-19 | Outpatient (CLI) | payer OTHER ==
[~2024-11-19] MED LIST changes: +BREAMIS10 MC; +DOXY-442 PO; -FLOM0.4C39 PO; +TAMS-18 PO; +VENTAER INH
== END ==
LOC: M SLEEP HO 11:41
PROVIDERS: ATTEND Student in an Organized Health Care Education/Training Program
DX: G47.33 Obstructive sleep apnea (adult) (pediatric) (principal)